=== PATIENT | male | born 1940 | race Caucasian/White ===

== ENCOUNTER 2016-12-08 18:38 | Emergency (ER) | payer MEDICARE, BC ==
--- NOTE | 2016-12-08 18:49 | ER Document Report ---
ED Medical Screen (RME) - General Stated Complaint: LOWER BACK PAIN Mode of Arrival: Medic Notes: Patient called EMS for right lower back pain for 2 days. Pain was dull in nature, but now is resolved. Patient denies any urinary symptoms. hx: CHF, hypertension, chronic kidney disease I have greeted and performed a rapid initial assessment of this patient. A comprehensive ED assessment and evaluation of the patient, analysis of test results and completion of the medical decision making process will be conducted by additional ED providers. TRAVEL OUTSIDE OF THE [place] IN LAST 30 DAYS: No - Related Data Allergies/Adverse Reactions: No Known Allergies Allergy (Unverified 09/25/12 16:20) Past Medical History - Past Medical History Cardiac Medical History: Reports: Hx Congestive Heart Failure, Hx Coronary Artery Disease, Hx Heart Attack, Hx Hypercholesterolemia, Hx Hypertension, Hx Peripheral Vascular Disease Denies: Hx Atrial Fibrillation, Hx Heart Murmur Pulmonary Medical History: Denies: Hx Tuberculosis Neurological Medical History: Denies: Hx Seizures Musculoskeltal Medical History: Reports Hx Arthritis Psychiatric Medical History: Denies: Hx Depression Past Surgical History: Reports: Hx Appendectomy, Hx Coronary Artery Bypass Graft , Hx Coronary Stent - x2 in 2009, Other - Colon polypectomy. Denies: Hx Bowel Surgery, Hx Cholecystectomy, Hx Gastric Bypass Surgery, Hx Herniorrhaphy, Hx Pacemaker, Hx Tonsillectomy - Immunizations Hx Diphtheria, Pertussis, Tetanus Vaccination: Yes Physical Exam - Vital signs Vitals: Temp Pulse Resp BP Pulse Ox 98.9 F 66 16 125/57 L 94 12/08/16 19:03 12/08/16 19:03 12/08/16 19:03 12/08/16 19:03 12/08/16 19:03 - Back Back: Normal Course - Vital Signs Vital signs: Temp Pulse Resp BP Pulse Ox 98.9 F 66 16 125/57 L 94 12/08/16 19:03 12/08/16 19:03 12/08/16 19:03 12/08/16 19:03 12/08/16 19:03
[2016-12-08 20:01] LABS: ABSOLUTE BASOPHILS # (AUTO) 0.1 10^3/uL (0.0-0.2); ABSOLUTE LYMPHOCYTES (AUTO) 1.7 10^3/uL (0.5-4.7); ABSOLUTE NEUT (AUTO) 10.2 10^3/uL (1.7-8.2); BASOPHILS % (AUTO) 0.4 % (0-2); EOSINOPHILS % (AUTO) 0.3 % (0-6); HEMATOCRIT 33.6 % (37.9-51.0); HGB HCT DIFFERENCE -0.6; MEAN CORPUSCULAR HEMOGLOBIN 29.3 pg (27.0-33.4); MEAN CORPUSCULAR HGB CONC 32.7 g/dL (32.0-36.0); MEAN CORPUSCULAR VOLUME 90 fl (80-97); RED BLOOD COUNT 3.74 10^6/uL (4.35-5.55); SEGMENTED NEUTROPHILS % (AUTO) 73.3 % (42-78); WHITE BLOOD COUNT 13.9 10^3/uL (4.0-10.5)
[2016-12-08 20:22] LABS: ALANINE AMINOTRANSFERASE 23 U/L (21-72); ALBUMIN 4.2 g/dL (3.5-5.0); ALKALINE PHOSPHATASE 74 U/L (38-126); ANION GAP 18 (5-19); ASPARTATE AMINO TRANSFERASE 18 U/L (17-59); BILIRUBIN,DIRECT 0.4 mg/dL (0.0-0.4); BILIRUBIN,TOTAL 0.6 mg/dL (0.2-1.3); BLOOD UREA NITROGEN 80 mg/dL (7-20); CALCIUM 9.7 mg/dL (8.4-10.2); CARBON DIOXIDE 21 mmol/L (22-30); CHLORIDE 103 mmol/L (98-107); CREATININE RESULT 2.66 mg/dL (0.52-1.25); GLUCOSE 122 mg/dL (75-110); LIPASE 199.9 U/L (23-300); POTASSIUM 5.1 mmol/L (3.6-5.0); SODIUM 141.9 mmol/L (137-145); TOTAL PROTEIN 7.1 g/dL (6.3-8.2)
[2016-12-08 20:35] LABS: APPEARANCE,URINE SLIGHTLY-CLOUDY; BILIRUBIN,URINE NEGATIVE (NEGATIVE); GLUCOSE, URINE NEGATIVE (NEGATIVE); KETONES,URINE NEGATIVE (NEGATIVE); LEUKOCYTE ESTERASE,URINE NEGATIVE (NEGATIVE); NITRITE,URINE NEGATIVE (NEGATIVE); PROTEIN,URINE NEGATIVE (NEGATIVE); URINE SPECIFIC GRAVITY 1.016; UROBILINOGEN,URINE NEGATIVE mg/dL (<2.0)
[2016-12-09] MEDS ORDERED: HYDROCODONE/ACETAMINOPHEN 5-325 MG 6 TAB/DSPK PO PRN (00:04)
--- NOTE | 2016-12-09 00:04 | ER Document Report ---
ED GI/ - General Mode of Arrival: Medic Information source: Patient, Relative - TRAVEL OUTSIDE OF THE [place] IN LAST 30 DAYS: No - HPI Patient complains to provider of: Other - Low back pain Associated symptoms: Other - See above <REGGIE CAO - Last Filed: 12/09/16 01:18> <CARLOS BADILLO - Last Filed: 12/09/16 02:44> - General Chief Complaint: Low Back Pain Stated Complaint: LOWER BACK PAIN Notes: Patient is a 76 year old male, with a past medical history including stage 4 kidney disease, who presents to the emergency department via EMS for right lower back pain. Patient states the pain began yesterday night and was exacerbated by laying on his right side which caused him shortness of breath. Patient reports the pain went away but came back yesterday afternoon but without any difficulty breathing. Patient states he has been using a heating pad at home to help relieve the pain. Patient was given a shot or toradol en route and states he [place] snot have pain anymore. Patient denies fever and cough. Senior Interactive Producer: Dr. Lundberg (REGGIE CAO) - Related Data Allergies/Adverse Reactions: No Known Allergies Allergy (Verified 12/08/16 19:24) Past Medical History - General Information source: Patient - Social History Smoking Status: Never Smoker Chew tobacco use (# tins/day): No Frequency of alcohol use: None Drug Abuse: None Family History: Reviewed & Not Pertinent - Past Medical History Cardiac Medical History: Reports: Hx Congestive Heart Failure, Hx Coronary Artery Disease, Hx Heart Attack, Hx Hypercholesterolemia, Hx Hypertension, Hx Peripheral Vascular Disease Renal/ Medical History: Reports: Other - Hx Stage 3 kidney disease Musculoskeltal Medical History: Reports Hx Arthritis Past Surgical History: Reports: Hx Appendectomy, Hx Coronary Artery Bypass Graft , Hx Coronary Stent - x2 in 2009, Other - Colon polypectomy - Immunizations Hx Diphtheria, Pertussis, Tetanus Vaccination: Yes <REGGIE CAO - Last Filed: 12/09/16 01:18> Review of Systems - Review of Systems Constitutional: No symptoms reported. denies: Fever EENT: No symptoms reported Cardiovascular: No symptoms reported Respiratory: See HPI, Hurts to breathe. denies: Cough Gastrointestinal: No symptoms reported Genitourinary: No symptoms reported Male Genitourinary: No symptoms reported Musculoskeletal: See HPI, Back pain Skin: No symptoms reported Hematologic/Lymphatic: No symptoms reported Neurological/Psychological: No symptoms reported -: Yes All other systems reviewed and negative <REGGIE CAO - Last Filed: 12/09/16 01:18> Physical Exam - Vital signs Interpretation: Normal - General General appearance: Appears well, Alert - HEENT Head: Normocephalic, Atraumatic Eyes: Normal Pupils: PERRL - Respiratory Respiratory status: No respiratory distress Chest status: Nontender Breath sounds: Normal Chest palpation: Normal - Cardiovascular Rhythm: Regular Heart sounds: Normal auscultation Murmur: No - Abdominal Inspection: Normal Distension: No distension Bowel sounds: Normal Tenderness: Nontender Organomegaly: No organomegaly - Back Back: Normal, Other - Burn to right flank with centimeters by 2 cm blister. No : CVA tenderness - Extremities General upper extremity: Normal inspection, Nontender, Normal color, Normal ROM , Normal temperature General lower extremity: Normal inspection, Nontender, Normal color, Normal ROM , Normal temperature, Normal weight bearing. No: Volodymyr's sign - Neurological Neuro grossly intact: Yes Cognition: Normal Orientation: AAOx4 [place] Coma Scale Eye Opening: Spontaneous [place] Coma Scale Verbal: Oriented [place] Coma Scale Motor: Obeys Commands Lexy Coma Scale Total: 15 Speech: Normal Motor strength normal: LUE, RUE, LLE, RLE Sensory: Normal - Psychological Associated symptoms: Normal affect, Normal mood - Skin Skin Temperature: Warm Skin Moisture: Dry Skin Color: Normal <CARLOS BADILLO - Last Filed: 12/09/16 02:44> - Vital signs Vitals: Temp Pulse Resp BP Pulse Ox 98.9 F 66 16 125/57 L 94 12/08/16 19:03 12/08/16 19:03 12/08/16 19:03 12/08/16 19:03 12/08/16 19:03 Course - Laboratory Result Diagrams: 12/08/16 19:49 12/08/16 19:49 <REGGIE CAO - Last Filed: 12/09/16 01:18> - Laboratory Result Diagrams: 12/08/16 19:49 12/08/16 19:49 <CARLOS BADILLO - Last Filed: 12/09/16 02:44> - Re-evaluation Re-evalutation: 12/09/16 Patient presents with back pain that resolved en route after Toradol. Patient is no evidence for UTI her kidney stone. Patient's blood work appears to be at baseline. Patient has no further pain or complaints at this time. He does however have a blister to his back after using a heating pad at home. Patient is instructed to follow-up with his primary doctor in the morning. Return if any worsening or concerning symptoms. Understands agrees with plan. Stable for discharge. Patient states that he does not want to do x-rays as he had recent imaging of his back. (CARLOS BADILLO) - Vital Signs Vital signs: Temp Pulse Resp BP Pulse Ox 97.7 F 60 20 151/53 H 94 12/09/16 00:23 12/09/16 00:23 12/09/16 00:23 12/09/16 00:23 12/09/16 00:23 - Laboratory Laboratory results interpreted by me: 12/08/16 12/08/16 19:49 19:49 WBC 13.9 H RBC 3.74 L Hgb 11.0 L Hct 33.6 L RDW 15.0 H Lymphocytes % 12.0 L Monocytes % 14.0 H Absolute Neutrophils 10.2 H Absolute Monocytes 2.0 H Potassium 5.1 H Carbon Dioxide 21 L BUN 80 H Creatinine 2.66 H Est GFR ( Amer) 28 L Est GFR (Non-Af Amer) 23 L Glucose 122 H Discharge <REGGIE CAO - Last Filed: 12/09/16 01:18> <CARLOS BADILLO - Last Filed: 12/09/16 02:44> - Discharge Clinical Impression: Burn Chronic kidney disease Qualifiers: Chronic kidney disease stage: stage 4 (severe) Qualified Code(s): N18.4 - Chronic kidney disease, stage 4 (severe) Back pain Qualifiers: Back pain location: low back pain Chronicity: acute Back pain laterality: right Sciatica presence: without sciatica Qualified Code(s): M54.5 - Low back pain Condition: Stable Disposition: HOME, SELF-CARE Instructions: [place] ([facility]), Low Back Pain ([facility]), Muscle Strain ([facility]) Additional Instructions: Please follow-up with your primary doctor tomorrow. Please return if you have any worsening or concerning symptoms. 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 Prescriptions: Oxycodone HCl/Acetaminophen [Percocet 5-325 mg Tablet] 1 tab PO BIDP PRN #15 tablet PRN Reason: Scribe Attestation: 12/09/16 02:44 I personally performed the services described in the documentation, reviewed and edited the documentation which was dictated to the scribe in my presence, and it accurately records my words and actions. (CARLOS BADILLO) Scribe Documentation - Scribe Written by Vera:: vera David, 12/09/16, 0124 acting as scribe for :: Chavez <REGGIE CAO - Last Filed: 12/09/16 01:18>
[2016-12-09 00:36] VITALS: BP 151/53
== END 2016-12-09 00:25 | disposition home or self-care (01) ==
LOC: ER 18:38
DX: M54.5 Low back pain (principal); T21.24XA Burn of second degree of lower back, initial encounter; X19.XXXA Contact with other heat and hot substances, initial encounter; I12.9 Hypertensive chronic kidney disease with stage 1 through stage 4 chronic kidney disease, or unspecified chronic kidney disease; N18.4 Chronic kidney disease, stage 4 (severe); R07.1 Chest pain on breathing; I25.10 Atherosclerotic heart disease of native coronary artery without angina pectoris; I25.2 Old myocardial infarction; Z95.1 Presence of aortocoronary bypass graft; Z98.61 Coronary angioplasty status
CPT/HCPCS: 99283; 36415; 83690; 85025; 80053; 81001; A9270

== ENCOUNTER 2020-03-12 23:04 | Inpatient (IN) | payer MEDICARE, BC ==
--- NOTE | 2020-03-12 23:50 | ER Document Report ---
ED Fall - General Chief Complaint: Knee Pain Stated Complaint: FALL KNEE PAIN Time Seen by Provider: 03/12/20 23:35 Primary Care Provider: [facility] [Provider Group] - Follow up in 3-5 days ERNESTINE BRANDT FNP-C [Primary Care Provider] - Follow up as needed Mode of Arrival: Stretcher Information source: Patient Notes: 80-year-old male presented to ED for complaint of bilateral knee pain. He states he tried to get up the stairs and fell down 2 steps attempted to go up the second time and fell down again. He states that he can go back up the steps the third time. He is alert oriented respirations regular nonlabored speaking in full sentences. He does have some bruising and mild swelling to both knees. He does have pedal edema bilaterally but he is in CHF. He is alert oriented respirations regular nonlabored speaking in full sentences. TRAVEL OUTSIDE OF THE [place] IN LAST 30 DAYS: No - HPI Occurred: This evening Where: Home Context: Tripped Associated symptoms: Difficulty walking Location of injury/pain: Knee Quality of pain: Dull Severity: Moderate Pain Level: 3 - Related data Allergies/Adverse Reactions: No Known Allergies Allergy (Verified 12/08/16 19:24) Past Medical History - General Information source: Patient - Social History Smoking Status: Never Smoker Frequency of alcohol use: None Drug Abuse: None Family History: Reviewed & Not Pertinent - Past Medical History Cardiac Medical History: Reports: Hx Congestive Heart Failure, Hx Coronary Artery Disease, Hx Heart Attack, Hx Hypercholesterolemia, Hx Hypertension, Hx Peripheral Vascular Disease Pulmonary Medical History: Reports: None EENT Medical History: Reports: None Neurological Medical History: Reports: None Endocrine Medical History: Reports: None Renal/ Medical History: Reports: Hx End Stage Renal Disease - Stage III kidney disease Malignancy Medical History: Reports None GI Medical History: Reports: Hx Colonoscopy Musculoskeletal Medical History: Reports Hx Arthritis Skin Medical History: Reports None Psychiatric Medical History: Reports: None Traumatic Medical History: Reports: None Infectious Medical History: Reports: None Past Surgical History: Reports: Hx Appendectomy, Hx Coronary Artery Bypass Graft, Hx Coronary Stent - x2 in 2009, Other - Colon polypectomy - Immunizations Hx Diphtheria, Pertussis, Tetanus Vaccination: Yes Review of Systems - Review of Systems Constitutional: No symptoms reported EENT: No symptoms reported Cardiovascular: No symptoms reported Respiratory: No symptoms reported Gastrointestinal: No symptoms reported Genitourinary: No symptoms reported Male Genitourinary: No symptoms reported Musculoskeletal: Joint pain - Bilateral knee pain and swelling, Joint swelling Skin: No symptoms reported Hematologic/Lymphatic: No symptoms reported Neurological/Psychological: No symptoms reported Physical Exam - Vital signs Vitals: Temp Pulse Resp BP Pulse Ox 98.8 F 94 19 137/70 H 92 03/12/20 23:12 03/12/20 23:12 03/12/20 23:12 03/12/20 23:12 03/12/20 23:12 Interpretation: Normal - General General appearance: Appears well, Alert - HEENT Head: Normocephalic, Atraumatic Eyes: Normal Pupils: PERRL - Respiratory Respiratory status: No respiratory distress Chest status: Nontender Breath sounds: Normal Chest palpation: Normal - Cardiovascular Rhythm: Regular Heart sounds: Normal auscultation Murmur: No - Abdominal Inspection: Normal Distension: No distension Bowel sounds: Normal Tenderness: Nontender Organomegaly: No organomegaly - Back Back: Normal, Nontender - Extremities General upper extremity: Normal inspection, Nontender, Normal color, Normal ROM, Normal temperature General lower extremity: Normal ROM, Normal temperature. No: Volodymyr's sign Knee: Tender, Ecchymosis, Joint effusion, Pain with ROM, Patellar tendon intact, Tender joint line. No: Abrasion, Deformity, Dislocation, Drawer's test instability, Instability, Laceration, Laxity with valgus stress, Laxity with varus stress, Popliteal fossa tender Calf: Normal, Nontender Ankle: Edema Foot: Edema - Neurological Neuro grossly intact: Yes Cognition: Normal Orientation: AAOx4 [place] Coma Scale Eye Opening: Spontaneous [place] Coma Scale Verbal: Oriented [place] Coma Scale Motor: Obeys Commands Lexy Coma Scale Total: 15 Speech: Normal Motor strength normal: LUE, RUE, LLE, RLE Sensory: Normal - Psychological Associated symptoms: Normal affect, Normal mood - Skin Skin Temperature: Warm Skin Moisture: Dry Skin Color: Normal Course - Re-evaluation Re-evalutation: 03/13/20 05:21 Discussed x-rays with patient and written report of x-rays given the patient. A prescription have been applied to both knees as patient is not able to walk and uses a motorized scooter would not be able to utilize knee immobilizer. He has been instructed to follow-up with orthopedics when he is discharged home. He states he will not be able to go home until he gets a ride with family. That has been scheduled for in the morning. - Vital Signs Vital signs: Temp Pulse Resp BP Pulse Ox 98.0 F 71 18 138/78 H 91 L 03/13/20 02:06 03/13/20 02:06 03/13/20 02:06 03/13/20 02:06 03/13/20 02:06 - Diagnostic Test Radiology reviewed: Image reviewed, Reports reviewed Procedures - Immobilization Left Knee Time completed: :45 Pre-Proc Neuro Vasc Exam: Normal Immobilizer type: Krishna wrap Performed by: PCT Post-Proc Neuro Vasc Exam: Normal Alignment checked and good: Yes Right Knee Time completed: 45 Pre-Proc Neuro Vasc Exam: Normal Immobilizer type: Krishna wrap Performed by: PCT Post-Proc Neuro Vasc Exam: Normal Alignment checked and good: Yes Discharge - Discharge Clinical Impression: Bilateral knee contusion Fall Qualifiers: Encounter type: initial encounter Qualified Code(s): W19.XXXA - Unspecified fall, initial encounter Degenerative arthritis of knee, bilateral Qualifiers: Osteoarthritis type: unspecified Qualified Code(s): M17.0 - Bilateral primary osteoarthritis of knee Condition: Stable Disposition: HOME, SELF-CARE Additional Instructions: CONTUSION: Your injury has resulted in a contusion -- a crushing of the deep tissues. No injury to important structures was detected during the physician's exam. Contusions vary in the amount of pain they cause, and in the length of time required for healing. Typically, the area will become bruised, and will remain painful to touch for two or three weeks. However, most patients are back to working and playing within a few days. After the initial period of rest and cold-packs, your symptoms (together with the doctor's recommendations) will determine how rapidly you can get back to full activity. Usually this means "do what feels okay, but don't do things that hurt." If re-examination was recommended, it's important to follow up as instructed. Call the doctor or return any time if pain increases, if swelling becomes severe, if you develop numbness or weakness in an injured extremity, or if any other alarming symptoms occur. KRISHNA WRAP: A compression dressing (krishna wrap) has been placed. This helps hold the area still. It limits swelling and internal bleeding. The wrap should be comfortably snug -- not tight. You should feel a sense of pressure, but not severe pain under the wrap. Unless the physician tells you otherwise, you can adjust the wrap for comfort. If the wrap causes symptoms suggesting it's too tight -- uncomfortable pressure, swelling or discoloration beyond the wrap, numbness, or severe pain -- you must loosen the wrap. If these symptoms don't resolve promptly, return for re-evaluation. ICE & ELEVATION: Apply ice packs frequently against the painful area. Many different schedules are recommended, such as "20 minutes on, 20 minutes off" or "one hour ice, two hours rest." If you need to work, you may need to go longer between ice treatments. You should plan to have the area ice packed AT LEAST one-fourth of the time. The ice should be applied over the wrap, tape, or splint, or over a layer of cloth -- not directly against the skin. Some ice bags have a built-in cloth and can be put directly on the skin. Your injured part should be elevated as much as possible over the next 48 hours. Try to keep the injury above the level of the heart. Avoid use of the injured area. Elevation and rest will decrease the swelling. USE OF TYLENOL (ACETAMINOPHEN): Acetaminophen may be taken for pain relief or fever control. It's much safer than aspirin, offering a wider range of "safe" dosages. It is safe during . Some brand names are Tylenol, Panadol, Datril, Anacin 3, Tempra, and Liquiprin. Acetaminophen can be repeated every four hours. The following are maximum recommended dosages: WEIGHT Dose Drops Elixir Chewable(80mg) (LBS.) drprs=droppers tsp=teaspoon 6 40 mg 0.4 ml (1/2) 6-11 80 mg 0.8 ml (full) tsp 1 tab 12-16 120 mg 1 1/2 drprs 3/4 tsp 1 1/2 tabs 17-23 160 mg 2 drprs 1 tsp 2 tabs 24-30 240 mg 3 drprs 1 1/2 tsp 3 tabs 30-35 320 mg 2 tsp 4 tabs 36-41 360 mg 2 1/4 tsp 4 1/2 tabs 42-47 400 mg 2 1/2 tsp 5 tabs 48-53 480 mg 3 tsp 6 tabs 54-59 520 mg 3 1/4 tsp 6 1/2 tabs 60-64 560 mg 3 1/2 tsp 7 tabs 65-70 600 mg 3 3/4 tsp 7 1/2 tabs 71-76 640 mg 4 tsp 8 tabs 77-82 720 mg 4 1/2 tsp 9 tabs 83-88 800 mg 5 tsp 10 tabs >89 pounds or adults 650 mg to 900 mg Acetaminophen can be repeated every four hours. Maximum dose not to exceed 4000 mg a day. These maximum recommended dosages are slightly higher than the dosages written on the product container, but these dosages are very safe and below the toxic dosage for acetaminophen. FOLLOW-UP CARE: If you have been referred to a physician for follow-up care, call the physicians office for an appointment as you were instructed or within the next two days. If you experience worsening or a significant change in your symptoms, notify the physician immediately or return to the Emergency Department at any time for re-evaluation. Forms: Elevated Blood Pressure Referrals: ERNESTINE BRANDT, RN [facility] [Primary Care Provider] - Follow up as needed [facility] [Provider Group] - Follow up in 3-5 days
[2020-03-13] MEDS ORDERED: ACETAMINOPHEN 325 MG TABLET PO ONE (00:35)
--- NOTE | 2020-03-13 00:37 | RADIOLOGY REPORT (SQ) ---
EXAM DESCRIPTION: XR KNEE 4 OR MORE VIEWS COMPLETED DATE/TME: 03/12/2020 23:44 CLINICAL HISTORY: 80 years, Male, Fall pain and injury both knees COMPARISON: None. NUMBER OF VIEWS: 4 TECHNIQUE: 4 views of the left knee LIMITATIONS: None. FINDINGS: Osteopenia. Negative for acute fracture or dislocation. However, there is advanced tricompartmental degenerative change with multiple loose bodies. Small joint effusion is suspected. Vascular calcifications IMPRESSION: Osteopenia with advanced degenerative change. Small loose bodies. copyright 2010 [employer]- All Rights Reserved
--- NOTE | 2020-03-13 00:53 | RADIOLOGY REPORT (SQ) ---
EXAM DESCRIPTION: XR KNEE 4 OR MORE VIEWS COMPLETED DATE/TME: 03/12/2020 23:44 CLINICAL HISTORY: 80 years, Male, Fall pain and injury both knees COMPARISON: None. NUMBER OF VIEWS: 4 TECHNIQUE: 4 views of the right knee LIMITATIONS: None. FINDINGS: Osteopenia. Negative for acute fracture or dislocation. Probable small joint effusion. Vascular calcifications. Advanced tricompartmental degenerative change with tricompartmental narrowing, and spur formation. IMPRESSION: Osteopenia with advanced degenerative change copyright 2010 [employer]- All Rights Reserved
--- NOTE | 2020-03-13 07:56 | ER Document Report ---
ED Medical Screen (RME) - General Chief Complaint: Knee Pain Stated Complaint: FALL KNEE PAIN Time Seen by Provider: 03/12/20 23:35 Primary Care Provider: [facility] [Provider Group] - Follow up in 3-5 days ERNESTINE BRANDT FNP-C [Primary Care Provider] - Follow up as needed Mode of Arrival: Stretcher Information source: Patient Notes: 80-year-old male was waiting for a ride home from his previous admission for fall with contusions to bilateral knees. When he woke up this morning he was extremely short of breath. O2 sat was in the 80s. He had been sleeping waiting for his ride home with family. His sats are 91% on 2 L of oxygen. He states he does get this way sometimes at home and he just rest and wait for it to pass. He does have a history of CHF and coronary artery disease. We will get a cardiac work-up done at this time he is on 2 L nasal cannula and he will be reexamined and a new work-up started. I have greeted and performed a rapid initial assessment of this patient. A comprehensive ED assessment and evaluation of the patient, analysis of test results and completion of medical decision making process will be conducted by an additional ED providers. TRAVEL OUTSIDE OF THE [place] IN LAST 30 DAYS: No - Related Data Allergies/Adverse Reactions: No Known Allergies Allergy (Verified 12/08/16 19:24) Past Medical History - Social History Chew tobacco use (# tins/day): No Frequency of alcohol use: None Drug Abuse: None - Past Medical History Cardiac Medical History: Reports: Hx Congestive Heart Failure, Hx Coronary Artery Disease, Hx Heart Attack, Hx Hypercholesterolemia, Hx Hypertension, Hx Peripheral Vascular Disease Pulmonary Medical History: Reports: None EENT Medical History: Reports: None Neurological Medical History: Reports: None Endocrine Medical History: Reports: None Renal/ Medical History: Reports: Hx End Stage Renal Disease - Stage III kidney disease Malignancy Medical History: Reports None GI Medical History: Reports: Hx Colonoscopy Musculoskeltal Medical History: Reports Hx Arthritis Skin Medical History: Reports None Psychiatric Medical History: Reports: None Traumatic Medical History: Reports: None Infectious Medical History: Reports: None Past Surgical History: Reports: Hx Appendectomy, Hx Cardiac Surgery - 2 stents, Hx Coronary Artery Bypass Graft, Hx Coronary Stent - x2 in 2009, Other - Colon polypectomy - Immunizations Hx Diphtheria, Pertussis, Tetanus Vaccination: Yes Physical Exam - Vital signs Vitals: Temp Pulse Resp BP Pulse Ox 98.8 F 94 19 137/70 H 92 03/12/20 23:12 03/12/20 23:12 03/12/20 23:12 03/12/20 23:12 03/12/20 23:12 Course - Vital Signs Vital signs: Temp Pulse Resp BP Pulse Ox 98.0 F 71 18 138/78 H 91 L 03/13/20 02:06 03/13/20 02:06 03/13/20 02:06 03/13/20 02:06 03/13/20 02:06 Doctor's Discharge - Discharge Clinical Impression: Bilateral knee contusion Fall Qualifiers: Encounter type: initial encounter Qualified Code(s): W19.XXXA - Unspecified fall, initial encounter Degenerative arthritis of knee, bilateral Qualifiers: Osteoarthritis type: unspecified Qualified Code(s): M17.0 - Bilateral primary osteoarthritis of knee Condition: Stable Disposition: HOME, SELF-CARE Additional Instructions: CONTUSION: Your injury has resulted in a contusion -- a crushing of the deep tissues. No injury to important structures was detected during the physician's exam. Contusions vary in the amount of pain they cause, and in the length of time required for healing. Typically, the area will become bruised, and will remain painful to touch for two or three weeks. However, most patients are back to working and playing within a few days. After the initial period of rest and cold-packs, your symptoms (together with the doctor's recommendations) will determine how rapidly you can get back to full activity. Usually this means "do what feels okay, but don't do things that hurt." If re-examination was recommended, it's important to follow up as instructed. Call the doctor or return any time if pain increases, if swelling becomes severe, if you develop numbness or weakness in an injured extremity, or if any other alarming symptoms occur. CEDRIC WRAP: A compression dressing (cedric wrap) has been placed. This helps hold the area still. It limits swelling and internal bleeding. The wrap should be comfortably snug -- not tight. You should feel a sense of pressure, but not severe pain under the wrap. Unless the physician tells you otherwise, you can adjust the wrap for comfort. If the wrap causes symptoms suggesting it's too tight -- uncomfortable pressure, swelling or discoloration beyond the wrap, numbness, or severe pain -- you must loosen the wrap. If these symptoms don't resolve promptly, return for re-evaluation. ICE & ELEVATION: Apply ice packs frequently against the painful area. Many different schedules are recommended, such as "20 minutes on, 20 minutes off" or "one hour ice, two hours rest." If you need to work, you may need to go longer between ice treatments. You should plan to have the area ice packed AT LEAST one-fourth of the time. The ice should be applied over the wrap, tape, or splint, or over a layer of cloth -- not directly against the skin. Some ice bags have a built-in cloth and can be put directly on the skin. Your injured part should be elevated as much as possible over the next 48 hours. Try to keep the injury above the level of the heart. Avoid use of the injured area. Elevation and rest will decrease the swelling. USE OF TYLENOL (ACETAMINOPHEN): Acetaminophen may be taken for pain relief or fever control. It's much safer than aspirin, offering a wider range of "safe" dosages. It is safe during . Some brand names are Tylenol, Panadol, Datril, Anacin 3, Tempra, and Liquiprin. Acetaminophen can be repeated every four hours. The following are maximum recommended dosages: WEIGHT Dose Drops Elixir Chewable(80mg) (LBS.) drprs=droppers tsp=teaspoon 6 40 mg 0.4 ml (1/2) 6-11 80 mg 0.8 ml (full) tsp 1 tab 12-16 120 mg 1 1/2 drprs 3/4 tsp 1 1/2 tabs 17-23 160 mg 2 drprs 1 tsp 2 tabs 24-30 240 mg 3 drprs 1 1/2 tsp 3 tabs 30-35 320 mg 2 tsp 4 tabs 36-41 360 mg 2 1/4 tsp 4 1/2 tabs 42-47 400 mg 2 1/2 tsp 5 tabs 48-53 480 mg 3 tsp 6 tabs 54-59 520 mg 3 1/4 tsp 6 1/2 tabs 60-64 560 mg 3 1/2 tsp 7 tabs 65-70 600 mg 3 3/4 tsp 7 1/2 tabs 71-76 640 mg 4 tsp 8 tabs 77-82 720 mg 4 1/2 tsp 9 tabs 83-88 800 mg 5 tsp 10 tabs >89 pounds or adults 650 mg to 900 mg Acetaminophen can be repeated every four hours. Maximum dose not to exceed 4000 mg a day. These maximum recommended dosages are slightly higher than the dosages written on the product container, but these dosages are very safe and below the toxic dosage for acetaminophen. FOLLOW-UP CARE: If you have been referred to a physician for follow-up care, call the physicians office for an appointment as you were instructed or within the next two days. If you experience worsening or a significant change in your symptoms, notify the physician immediately or return to the Emergency Department at any time for re-evaluation. Forms: Elevated Blood Pressure Referrals: [facility] [Provider Group] - Follow up in 3-5 days ERNESTINE BRANDT FNP-C [Primary Care Provider] - Follow up as needed
[2020-03-13] MEDS ORDERED: FUROSEMIDE INJ/PF 20 MG/2 ML SDV IV ONE (08:42)
[2020-03-13] MEDS ORDERED: NITROGLYCERIN 2% OINTMENT 1 GM PACKET TP ONE (08:42)
--- NOTE | 2020-03-13 08:44 | RADIOLOGY REPORT (SQ) ---
EXAM DESCRIPTION: CHEST SINGLE VIEW IMAGES COMPLETED DATE/TIME: 03/13/2020 8:20 am REASON FOR STUDY: Shortness of breath history of CHF COMPARISON: None. NUMBER OF VIEWS: One view. TECHNIQUE: Single frontal radiographic view of the chest acquired. LIMITATIONS: None. FINDINGS: LUNGS AND PLEURA: Increased mixed interstitial and airspace opacities are seen of the lung bases. No pneumothorax. No pleural effusion. MEDIASTINUM AND HILAR STRUCTURES: No masses or contour abnormality. HEART AND VASCULATURE: Cardiac enlargement. Vascular congestion. BONES: No acute findings. HARDWARE: None in the chest. OTHER: No other significant finding. IMPRESSION: Constellation of findings suggests CHF exacerbation. Infectious etiology is not exclude d. TECHNICAL DOCUMENTATION: JOB ID: [id number] 2010 [employer]- All Rights Reserved Reading location - IP/workstation name: [email or web address]
[2020-03-13 08:51] LABS: ABSOLUTE EOSINOPHILS # (AUTO) 0.1 10^3/uL (0.0-0.6); ABSOLUTE LYMPHOCYTES (AUTO) 1.5 10^3/uL (0.5-4.7); ABSOLUTE MONOCYTES (AUTO) 1.1 10^3/uL (0.1-1.4); BASOPHILS % (AUTO) 0.4 % (0-2); EOSINOPHILS % (AUTO) 1.1 % (0-6); HEMATOCRIT 33.8 % (37.9-51.0); HEMOGLOBIN 10.8 g/dL (13.5-17.0); LYMPHOCYTES % (AUTO) 11.6 % (13-45); MEAN CORPUSCULAR HEMOGLOBIN 29.1 pg (27.0-33.4); MEAN CORPUSCULAR VOLUME 91 fl (80-97); PLATELET COUNT 282 10^3/uL (150-450); RED BLOOD COUNT 3.73 10^6/uL (4.35-5.55); RED CELL DISTRIBUTION WIDTH 14.7 % (11.5-14.0); SEGMENTED NEUTROPHILS % (AUTO) 77.9 % (42-78); TOTAL CELLS COUNTED % (AUTO) 100 %; WHITE BLOOD COUNT 12.8 10^3/uL (4.0-10.5)
[2020-03-13 09:12] LABS: ALKALINE PHOSPHATASE 84 U/L (38-126); ANION GAP 8 (5-19); ASPARTATE AMINO TRANSFERASE 22 U/L (17-59); BILIRUBIN,DIRECT 0.1 mg/dL (0.0-0.4); BILIRUBIN,TOTAL 0.6 mg/dL (0.2-1.3); BLOOD UREA NITROGEN 65 mg/dL (7-20); CALCIUM 10.1 mg/dL (8.4-10.2); CARBON DIOXIDE 26 mmol/L (22-30); CHLORIDE 107 mmol/L (98-107); GLUCOSE 129 mg/dL (75-110); POTASSIUM 5.7 mmol/L (3.6-5.0); TOTAL PROTEIN 7.1 g/dL (6.3-8.2)
--- NOTE | 2020-03-13 09:17 | ER Document Report ---
ED Respiratory Problem - General Chief Complaint: Knee Pain Stated Complaint: FALL KNEE PAIN Time Seen by Provider: 03/13/20 09:00 Mode of Arrival: Stretcher Notes: Patient had initially been seen for complaint of knee pain. Patient was having difficulty breathing prior to his discharge and the discharge was canceled. Patient states that he has been having a productive cough for the past several weeks with shortness of breath today. Patient states that he had shortness of breath at home that led up to his fall. Patient's oxygen saturation on room air was in the 80s and the patient was noted to be in atrial fibrillation. Patient denies any history of A. fib. Patient with a rate in the 100s. Patient tachy pneic with increased work of breathing at this time. Dr. Rosas had been called into the room and had ordered Lasix and nitroglycerin paste. Patient does report a history of CHF and does report some increased swelling and weight gain recently. Patient denies any fever. TRAVEL OUTSIDE OF THE [place] IN LAST 30 DAYS: No - HPI Patient complains to provider of: CHF, Cough, Short of breath. No: Chest pain Onset: This morning Duration: Worse/persistent Pain Level: 3 Context: Hx CHF. denies: Smoker Associated symptoms: Cough, Difficulty breathing, Short of breath. denies: Fever, Headache, Wheezing Similar symptoms previously: No Recently seen / treated by doctor: Yes - Related Data Allergies/Adverse Reactions: Sulfa (Sulfonamide Antibiotics) Allergy (Verified 03/13/20 10:42) Past Medical History - General Information source: Patient - Social History Smoking Status: Never Smoker Chew tobacco use (# tins/day): No Frequency of alcohol use: None Drug Abuse: None Occupation: none Family History: Reviewed & Not Pertinent - Past Medical History Cardiac Medical History: Reports: Hx Congestive Heart Failure, Hx Coronary Artery Disease, Hx Heart Attack, Hx Hypercholesterolemia, Hx Hypertension, Hx Peripheral Vascular Disease Pulmonary Medical History: Reports: None EENT Medical History: Reports: None Neurological Medical History: Reports: None Endocrine Medical History: Reports: None Renal/ Medical History: Reports: Hx End Stage Renal Disease - Stage III kidney disease Malignancy Medical History: Reports None GI Medical History: Reports: Hx Colonoscopy Musculoskeletal Medical History: Reports Hx Arthritis Skin Medical History: Reports None Psychiatric Medical History: Reports: None Traumatic Medical History: Reports: None Infectious Medical History: Reports: None Past Surgical History: Reports: Hx Appendectomy, Hx Cardiac Surgery - 2 stents, Hx Coronary Artery Bypass Graft, Hx Coronary Stent - x2 in 2010, Other - Colon polypectomy - Immunizations Hx Diphtheria, Pertussis, Tetanus Vaccination: Yes Review of Systems - Review of Systems Constitutional: No symptoms reported. denies: Fever, Recent illness EENT: No symptoms reported Cardiovascular: Dyspnea. denies: Chest pain Respiratory: Cough, Short of breath Gastrointestinal: No symptoms reported. denies: Abdominal pain, Vomiting Genitourinary: No symptoms reported Male Genitourinary: No symptoms reported Musculoskeletal: Joint pain - Knee pain Skin: No symptoms reported Hematologic/Lymphatic: No symptoms reported Neurological/Psychological: No symptoms reported Physical Exam - Vital signs Vitals: Temp Pulse Resp BP Pulse Ox 98.8 F 94 19 137/70 H 92 03/12/20 23:12 03/12/20 23:12 03/12/20 23:12 03/12/20 23:12 03/12/20 23:12 - General General appearance: Alert In distress: Moderate - HEENT Head: Normocephalic Eyes: Normal Conjunctiva: Normal Nasal: Normal Mouth/Lips: Normal Mucous membranes: Normal Neck: Normal, Supple - Respiratory Respiratory status: Labored, Tachypnea Chest status: Nontender Breath sounds: Nonproductive cough, Other - Diminished breath sounds, faint rales noted to bilateral bases Chest palpation: Normal - Cardiovascular Rhythm: Irregularly irregular Heart sounds: S2 appreciated - Abdominal Inspection: Morbidly Obese Distension: No distension Tenderness: Nontender - Back Back: Normal, Nontender - Extremities General upper extremity: Normal inspection, Normal strength General lower extremity: Tender - Knee tenderness - Neurological Neuro grossly intact: Yes Cognition: Normal Lexy Coma Scale Eye Opening: Spontaneous [place] Coma Scale Verbal: Oriented Lexy Coma Scale Motor: Obeys Commands Lexy Coma Scale Total: 15 - Psychological Associated symptoms: Normal affect, Normal mood - Skin Skin Temperature: Warm Skin Moisture: Dry Skin Color: Normal Course - Re-evaluation Re-evalutation: 03/13/20 09:40 Patient with decrease in respiratory effort and rate after initiation of BiPAP, sats 99% at this time heart rate in the 90s. Patient with elevated troponin of 0.075, patient continues without any chest pain or acute ischemic changes on EKG, suspect strain response due to CHF exacerbation at this time. 03/13/20 10:[address] Call placed to hospitalist Dr[address] Dasilva who agrees to evaluate patient for admission. - Vital Signs Vital signs: Temp Pulse Resp BP Pulse Ox 98.6 F 124 H 16 131/78 H 93 03/13/20 16:36 03/13/20 16:36 03/13/20 16:36 03/13/20 16:36 03/13/20 16:36 - Laboratory Result Diagrams: 03/13/20 08:39 03/13/20 08:39 Laboratory results interpreted by me: 03/13/20 03/13/20 03/13/20 08:39 08:39 08:39 WBC 12.8 H RBC 3.73 L Hgb 10.8 L Hct 33.8 L RDW 14.7 H Lymph % (Auto) 11.6 L Absolute Neuts (auto) 10.0 H Carbonic Acid ABG pH ABG pCO2 ABG pO2 ABG HCO3 ABG Total CO2 ABG O2 Saturation Potassium 5.7 H BUN 65 H Creatinine 2.87 H Est GFR ( Amer) 26 L Est GFR (MDRD) Non-Af 21 L Glucose 129 H POC Glucose NT-Pro-B Natriuret Pep 7080 H 03/13/20 03/13/20 09:12 11:13 WBC RBC Hgb Hct RDW Lymph % (Auto) Absolute Neuts (auto) Carbonic Acid 1.66 H ABG pH 7.29 L ABG pCO2 55.1 H ABG pO2 71.8 L ABG HCO3 26.0 H ABG Total CO2 27.7 H ABG O2 Saturation 92.5 L Potassium BUN Creatinine Est GFR ( Amer) Est GFR (MDRD) Non-Af Glucose POC Glucose 117 H NT-Pro-B Natriuret Pep - Diagnostic Test Radiology reviewed: Image reviewed, Reports reviewed Discharge - Discharge Clinical Impression: Bilateral knee contusion, Hyperkalemia Fall Qualifiers: Encounter type: initial encounter Qualified Code(s): W19.XXXA - Unspecified fall, initial encounter Degenerative arthritis of knee, bilateral Qualifiers: Osteoarthritis type: unspecified Qualified Code(s): M17.0 - Bilateral primary osteoarthritis of knee CHF (congestive heart failure) Qualifiers: Heart failure type: unspecified Heart failure chronicity: unspecified Qualified Code(s): I50.9 - Heart failure, unspecified Dyspnea Qualifiers: Dyspnea type: unspecified Qualified Code(s): R06.00 - Dyspnea, unspecified Atrial fibrillation Qualifiers: Atrial fibrillation type: unspecified Qualified Code(s): I48.91 - Unspecified atrial fibrillation Condition: Fair Disposition: ADMITTED INPATIENT Admitting Provider: Vidya (Hospitalist) Unit Admitted: [facility]
[2020-03-13 09:26] LABS: TROPONIN I 0.075 ng/mL
[2020-03-13 09:31] LABS: ARTERIAL BLOOD BASE EXCESS -1.1 mmol/L; ARTERIAL BLOOD H2CO3 1.66 mmol/L (1.05-1.35); ARTERIAL BLOOD O2 SATURATION 92.5 % (94-98); ARTERIAL BLOOD PCO2 55.1 mmHg (35-45); ARTERIAL BLOOD PH 7.29 (7.35-7.45); ARTERIAL BLOOD PO2 71.8 mmHg (80-100); ARTERIAL BLOOD TOTAL CO2 27.7 mmol/L (23-27)
[2020-03-13 09:33] LABS: INTERNATIONAL RATION (INR) 1.03; PROTHROMBIN TIME 13.5 SEC (11.4-15.4)
[2020-03-13 09:33] LABS: ARTERIAL BLOOD FIO2 4L
[2020-03-13 09:34] LABS: PARTIAL THROMBOPLASTIN TIME 33.2 SEC (23.5-35.8)
[2020-03-13] MEDS ORDERED: HYDRALAZINE HCL 25 MG TABLET PO ONE (10:07)
[2020-03-13] MEDS ORDERED: LISINOPRIL 10 MG TABLET PO ONE (10:07)
[2020-03-13] MEDS ORDERED: CALCIUM GLUCONATE 1000 MG/10 ML INJ IV ONE (10:42)
[2020-03-13] MEDS ORDERED: DEXTROSE 50%-WATER 25 GM/50 ML DISP.SYRIN IV ONE (10:43)
[2020-03-13] MEDS ORDERED: INSULIN REG, HUMAN 100 UNIT/ML 3 ML VIAL (PYX) IV ONE (10:43)
[2020-03-13] MEDS ORDERED: SODIUM BICARBONATE 8.4% INJ 50 MEQ/50 ML DISP.SYRIN IV ONE (10:44)
[2020-03-13] MEDS ORDERED: CARVEDILOL 12.5 MG TABLET PO ONE ×2 (11:56→16:00)
[2020-03-13] MEDS: HEPARIN SOD (PORCINE) 5,000 UNIT/ML 1 ML VIAL SUBCUT SCH ×2 (14:49→21:29)
[2020-03-13] MEDS: TRAMADOL HCL 50 MG TABLET PO PRN ×2 (16:46→23:07)
--- NOTE | 2020-03-13 18:19 | PDOC H&P ---
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 He says he normally gets around in a scooter inside the house on the bottom floor, and when he has to go up some short stairs he uses an office chair with wheels to get around upstairs. It is not clear if he was coming up the stairs or going down the stairs, but at some point he fell and landed on both of his knees. This is the reason he was brought in. Multiple plain films show a lot of arthritis but no acute fractures. While he was here he started complaining of shortness of breath and was hypoxemic. His blood pressure was also high because he is not taking any of his medications this morning. He does not know who his data analyst is. He does not know if he has a history of congestive heart failure but he does take torsemide at home, which he says is because he gets swelling in his legs intermittently. He has been able to lay down flat at home. He is not been having any fevers. No cough. He mostly gets short of breath with exertion but he is obviously very deconditioned and this complicates his clinical picture. He had to get put on BiPAP for a little while in the ER and this improved his breathing. He does not wear oxygen at home. He appeared to have some bilateral edema on chest x-ray. Past Medical History Cardiac Medical History: Reports: Congestive Heart Failure, Coronary Artery Disease, Myocardial Infarction, Hyperlipidema, Hypertension, Peripheral Vascular Disease Pulmonary Medical History: Reports: None EENT Medical History: Reports: None Neurological Medical History: Reports: None Endocrine Medical History: Reports: None Renal/ Medical History: Reports: End Stage Renal Disease - Stage III kidney disease Malignancy Medical History: Reports: None Musculoskeltal Medical History: Reports: Arthritis Skin Medical History: Reports: None Psychiatric Medical History: Reports: None Traumatic Medical History: Reports: None Infectious Medical History: Reports: None Past Surgical History Past Surgical History: Reports: Appendectomy, Coronary Artery Bypass Graft, Coronary Stent - x2 in 2009, Other - Colon polypectomy Social History Smoking Status: Never Smoker Electronic Cigarette use?: No Frequency of Alcohol Use: None Hx Recreational Drug Use: No Drugs: None Hx Prescription Drug Abuse: No Family History Family History: Reviewed & Not Pertinent Parental Family History Reviewed: No - He does not know Children Family History Reviewed: Unknown Sibling(s) Family History Reviewed.: Unknown Medication/Allergy Home Medications: Clopidogrel Bisulfate [Plavix 75 mg Tablet] 75 mg PO DAILY 09/25/12 Lisinopril [Prinivil 20 mg Tablet] 20 mg PO DAILY 09/25/12 Carvedilol [Coreg 12.5 mg Tablet] 25 mg PO Q12 #0 tablet 10/05/12 Hydralazine HCl [Apresoline 25 mg Tablet] 25 mg PO Q8 #90 tablet 08/06/16 Torsemide [Demadex 20 mg Tablet] 20 mg PO DAILY #30 tablet 08/06/16 Calcitriol [Rocaltrol 0.25 mcg Capsule] 0.25 mcg PO DAILY 03/13/20 Cholecalciferol (Vitamin D3) [Vitamin D3 1000 Unit Tablet] 5,000 unit PO DAILY 03/13/20 Febuxostat [Uloric 40 mg Tablet] 40 mg PO DAILY 03/13/20 Rosuvastatin Calcium [Crestor] 20 mg PO DAILY 03/13/20 Allergies/Adverse Reactions: Sulfa (Sulfonamide Antibiotics) Allergy (Verified 03/13/20 10:42) Review of Systems All systems: reviewed and no additional remarkable complaints except as stated - All systems were reviewed and were negative except as noted in the HPI, but this patient is a terrible historian Physical Exam Vital Signs: Temp Pulse Resp BP Pulse Ox 98.6 F 124 H 16 131/78 H 93 03/13/20 16:36 03/13/20 16:36 03/13/20 16:36 03/13/20 16:36 03/13/20 16:36 Intake & Output 03/12/20 03/13/20 03/14/20 06:59 06:59 06:59 Output Total 200 Balance -200 Weight 136.078 kg 136.078 kg General appearance: PRESENT: no acute distress, cooperative, disheveled, morbidly obese Head exam: PRESENT: atraumatic, normocephalic Eye exam: PRESENT: EOMI, PERRLA. ABSENT: conjunctival injection, nystagmus, scleral icterus Ear exam: PRESENT: normal external ear exam Mouth exam: PRESENT: dry mucosa, neck supple Teeth exam: PRESENT: poor dentation Throat exam: ABSENT: post pharyngeal erythema Neck exam: PRESENT: full ROM. ABSENT: carotid bruit, JVD - But difficult to tell due to his body habitus, lymphadenopathy, meningismus, tenderness, thyromegaly Respiratory exam: PRESENT: decreased breath sounds - Difficult to hear due to b charles habitus, symmetrical, unlabored. ABSENT: accessory muscle use, chest wall tenderness, crackles, prolonged expiratory phas, rhonchi, tachypnea, wheezes Cardiovascular exam: PRESENT: irregular rhythm, +S1, +S2, systolic murmur Pulses: PRESENT: normal carotid pulses Vascular exam: PRESENT: normal capillary refill GI/Abdominal exam: PRESENT: normal bowel sounds, soft, other - Pendulous abdominal pannus. ABSENT: distended, guarding, rebound, tenderness Extremities exam: PRESENT: pedal edema, +1 edema, other - Evidence of chronic venous insufficiency. ABSENT: clubbing Musculoskeletal exam: PRESENT: normal inspection. ABSENT: deformity Neurological exam: PRESENT: alert, awake, oriented to person, oriented to place, oriented to situation, CN II-XII grossly intact. ABSENT: motor sensory deficit Psychiatric exam: PRESENT: flat affect Skin exam: PRESENT: dry, warm Results Laboratory Results: 03/13/20 08:39 03/13/20 08:39 03/13/20 03/13/20 03/13/20 08:39 08:39 08:39 WBC 12.8 H RBC 3.73 L Hgb 10.8 L Hct 33.8 L MCV 91 MCH 29.1 MCHC 32.0 RDW 14.7 H Plt Count 282 Seg Neutrophils % 77.9 Carbonic Acid HCO3/H2CO3 Ratio ABG pH ABG pCO2 ABG pO2 ABG HCO3 ABG O2 Saturation ABG Base Excess FiO2 Sodium 140.9 Potassium 5.7 H Chloride 107 Carbon Dioxide 26 Anion Gap 8 BUN 65 H Creatinine 2.87 H Est GFR ( Amer) 26 L Glucose 129 H Calcium 10.1 Magnesium 2.0 Total Bilirubin 0.6 AST 22 Alkaline Phosphatase 84 Total Protein 7.1 Albumin 4.0 TSH 03/13/20 03/13/20 08:39 09:12 WBC RBC Hgb Hct MCV MCH MCHC RDW Plt Count Seg Neutrophils % Carbonic Acid 1.66 H HCO3/H2CO3 Ratio 15:1 ABG pH 7.29 L ABG pCO2 55.1 H ABG pO2 71.8 L ABG HCO3 26.0 H ABG O2 Saturation 92.5 L ABG Base Excess -1.1 FiO2 4L Sodium Potassium Chloride Carbon Dioxide Anion Gap BUN Creatinine Est GFR ( Amer) Glucose Calcium Magnesium Total Bilirubin AST Alkaline Phosphatase Total Protein Albumin TSH 1.24 03/13/20 08:39 Troponin I 0.075 NT-Pro-B Natriuret Pep 7080 H Impressions: Knee X-Ray 03/12/20 23:44 IMPRESSION: Osteopenia with advanced degenerative change copyright 2010 [employer]- All Rights Reserved Chest X-Ray 03/13/20 07:54 IMPRESSION: Constellation of findings suggests CHF exacerbation. Infectious etiology is not excluded. Assessment and Plan - Diagnosis (1) Atrial fibrillation Qualifiers: Atrial fibrillation type: unspecified Qualified Code(s): I48.91 - Unspecified atrial fibrillation Is this a current diagnosis for this admission?: Yes Plan: No prior history, was noted to be in atrial fibrillation on the monitor. We will continue his beta-hugh for now. Echocardiogram is pending. (2) Degenerative arthritis of knee, bilateral Qualifiers: Osteoarthritis type: unspecified Qualified Code(s): M17.0 - Bilateral primary osteoarthritis of knee Is this a current diagnosis for this admission?: Yes Plan: Outpatient follow-up, physical therapy evaluation (3) Fall Qualifiers: Encounter type: initial encounter Qualified Code(s): W19.XXXA - Unspecified fall, initial encounter Is this a current diagnosis for this admission?: Yes Plan: Once he improves medically, we will get a physical therapy evaluation (4) Hyperkalemia Is this a current diagnosis for this admission?: Yes Plan: A potassium shift was done in the ER. We will follow-up his electrolytes. (5) Acute on chronic diastolic (congestive) heart failure Is this a current diagnosis for this admission?: Yes Plan: Last echocardiogram we have on him here several years old. At that time his EF was preserved but he was noted to have some pulmonary hypertension and some diastolic dysfunction. We will treat him with respiratory support as needed and IV Lasix. We will get him back on his beta-hugh. Echocardiogram is pending. (6) Acute on chronic respiratory failure with hypoxemia Is this a current diagnosis for this admission?: Yes Plan: BiPAP and supplemental O2 as needed to maintain SPO2 greater than 90%. He is not on oxygen chronically at home. (7) Morbid obesity with BMI of 40.0-44.9, adult Is this a current diagnosis for this admission?: Yes Plan: We will strongly encourage dietary and activity modification (8) Anemia in chronic kidney disease (CKD) Qualifiers: Chronic kidney disease stage: stage 3 (moderate) Qualified Code(s): N18.3 - Chronic kidney disease, stage 3 (moderate); D63.1 - Anemia in chronic kidney disease Is this a current diagnosis for this admission?: Yes Plan: No need for transfusion at this time, will monitor closely (9) Coronary artery disease Qualifiers: Coronary Disease-Associated Artery/Lesion type: [place] artery [place] vs. transplanted heart: [place] heart Is this a current diagnosis for this admission?: Yes Plan: We will continue home medication regimen (10) Hypertensive urgency Is this a current diagnosis for this admission?: Yes Plan: Blood pressure came down with IV medication in the ER. We will get him back on his medications because he did not take them this morning. (11) Pulmonary hypertension Is this a current diagnosis for this admission?: Yes Plan: This is definitely playing a role. This will be better evaluated on echocardiogram. (12) Chronic kidney disease (CKD) stage G3b/A1, moderately decreased glomerular filtration rate (GFR) between 30-44 mL/min/1.73 square meter and albuminuria creatinine ratio less than 30 mg/g Is this a current diagnosis for this admission?: Yes Plan: Creatinine is in his usual range - Time Time Spent with patient: 35 or more minutes - Inpatient Certification Based on my medical assessment, after consideration of the patient's comorbidities, presenting symptoms, or acuity I expect that the services needed warrant INPATIENT care.: Yes I certify that my determination is in accordance with my understanding of Medicare's requirements for reasonable and necessary INPATIENT services [42 CFR 412.3e].: Yes Medical Necessity: Significant Comorbidiites Make Outpatient Treatment Too Risky, Need Close Monitoring Due to Risk of Patient Decompensation, Need For Continuous Telemetry Monitoring, Need for Nebulizer Therapy and Monitoring of Response, Risk of Complication if Not Cared For in Hospital
--- NOTE | 2020-03-13 19:10 | XCELERA REPORT ---
[address] [address] Transthoracic Echocardiogram Report Name: YOLANDA BERNSTEIN JR, JR Age: 80 yrs Gender: Male : 1940 Patient Status: Inpatient Patient Location: [facility]^A Study Date: 03/13/2020 05:08 PM History: CHF Atrial fibrillation Height: 72 in Weight: 300 lb BSA: 2.5 m2 Procedure: A complete two-dimensional transthoracic echocardiogram was performed (2D, M-mode, spectral and color flow Doppler). The study was technically difficult with many images being suboptimal in quality. Reason For Study: acute chf, afib Previous Evaluation: A previous study was performed on 08/02/2016 Preserved LVEF reported. History: CHF. Ordering Physician: QUAN WILCOX Performed By: Sophia Harris Interpretation Summary Left ventricular systolic function is normal. The Ejection Fraction estimate is 60-65% The right ventricle is normal in size and function. There is mild aortic stenosis There is mild pulmonary hypertension by echo There is no pericardial effusion. MMode/2D Measurements & Calculations RVDd: 2.8 cm LVIDd: 4.9 cm FS: 33.9 % Ao root diam: 2.7 cm IVSd: 1.1 cm LVIDs: 3.2 cm EDV(Teich): 111.1 ml Ao root area: 5.5 cm2 LVPWd: 0.99 cm ESV(Teich): 41.4 ml LA dimension: 3.8 cm EF(Teich): 62.7 % LVOT diam: 1.8 cm LVOT area: 2.5 cm2 Doppler Measurements & Calculations MV E max trace: MV P1/2t max trace: Ao V2 max: LV V1 max P.6 cm/sec 105.1 cm/sec 205.1 cm/sec 6.7 mmHg MV P1/2t: 81.1 msec Ao max PG: LV V1 mean PG: MVA(P1/2t): 2.7 cm2 16.8 mmHg 2.1 mmHg MV dec slope: Ao V2 mean: LV V1 max: 105.5 cm/sec 129.4 cm/sec 379.6 cm/sec2 Ao mean PG: LV V1 mean: MV dec time: 0.19 sec 6.1 mmHg 64.2 cm/sec Ao V2 VTI: 36.0 cmLV V1 VTI: 21.7 cm MONY(I,D): 1.5 cm2 MONY(V,D): 1.6 cm2 SV(LVOT): 54.8 ml PA V2 max: TR max trace: MV P1/2t-pr_phl: 132.7 cm/sec 295.7 cm/sec 81.1 msec PA max P.0 mmHg TR max P.0 mmHg Left Ventricle The left ventricle is grossly normal size. There is moderate concentric left ventricular hypertrophy. Left ventricular systolic function is normal. The Ejection Fraction estimate is 60-65%. LV diastolic function not assessed. Regional wall motion abnormalities cannot be excluded due to limited visualization. Right Ventricle The right ventricle is normal in size and function. Atria The right atrium is normal. The left atrium is moderately dilated. Mitral Valve The mitral valve is grossly normal. There is no mitral regurgitation noted. Aortic Valve The aortic valve is not well visualized secondary to technical limitations. In limited views the valve seems to open well. There is mild aortic stenosis. Tricuspid Valve The tricuspid valve is not well visualized, but is grossly normal. There is a trace amount of tricuspid regurgitation. Right ventricular systolic pressure is estimated to be elevated at 30-40mmHg. There is mild pulmonary hypertension by echo. Pulmonic Valve The pulmonic valve is not well visualized. There is a trace amount of pulmonic regurgitation. Great Vessels The aortic root is normal size. Effusions There is no pericardial effusion. : QUAN WILCOX Anil
--- NOTE | 2020-03-13 19:27 | EKG REPORT ---
SEVERITY:- ABNORMAL ECG - ATRIAL FIBRILLATION, V-RATE 77-127 LEFT BUNDLE BRANCH BLOCK : Confirmed by: Ezequiel Armenta 13-Mar-2020 19:26:50
[2020-03-13] MEDS: CARVEDILOL 12.5 MG TABLET PO SCH (21:29)
[2020-03-13] MEDS: ATORVASTATIN CALCIUM 40 MG TABLET PO SCH (21:30)
[2020-03-13] MEDS: HYDRALAZINE HCL 25 MG TABLET PO SCH (21:30)
[2020-03-13] MEDS ORDERED: FUROSEMIDE INJ/PF 40 MG/4 ML SDV IV SCH (22:00)
[2020-03-14] MEDS: HEPARIN SOD (PORCINE) 5,000 UNIT/ML 1 ML VIAL SUBCUT SCH ×3 (05:40→22:10)
[2020-03-14] MEDS: TRAMADOL HCL 50 MG TABLET PO PRN ×2 (05:40→17:09)
[2020-03-14] MEDS: HYDRALAZINE HCL 25 MG TABLET PO SCH ×3 (05:40→22:30)
[2020-03-14 06:20] LABS: HEMATOCRIT 27.2 % (37.9-51.0); HEMOGLOBIN 8.8 g/dL (13.5-17.0); MEAN CORPUSCULAR HEMOGLOBIN 29.3 pg (27.0-33.4); MEAN CORPUSCULAR HGB CONC 32.4 g/dL (32.0-36.0); MEAN CORPUSCULAR VOLUME 91 fl (80-97); PLATELET COUNT 208 10^3/uL (150-450); RED CELL DISTRIBUTION WIDTH 14.7 % (11.5-14.0); WHITE BLOOD COUNT 11.9 10^3/uL (4.0-10.5)
[2020-03-14 06:37] LABS: ANION GAP 9 (5-19); BLOOD UREA NITROGEN 74 mg/dL (7-20); CALCIUM 9.6 mg/dL (8.4-10.2); CARBON DIOXIDE 26 mmol/L (22-30); CHLORIDE 103 mmol/L (98-107); GLUCOSE 114 mg/dL (75-110); POTASSIUM 5.7 mmol/L (3.6-5.0)
[2020-03-14] MEDS ORDERED: (PENDING PHARMACY ID) (Rosuvastatin Calcium [Crestor] 20 MG) PO SCH (10:00)
[2020-03-14] MEDS ORDERED: (PENDING PHARMACY ID) (Lisinopril [Prinivil 20 Mg Tablet] 20 MG) PO SCH (10:00)
[2020-03-14] MEDS ORDERED: LISINOPRIL 10 MG TABLET PO SCH (10:00)
[2020-03-14] MEDS: FEBUXOSTAT 40 MG TABLET PO SCH (10:40)
[2020-03-14] MEDS: CARVEDILOL 12.5 MG TABLET PO SCH ×2 (10:40→22:10)
[2020-03-14] MEDS: CLOPIDOGREL BISULFATE 75 MG TABLET PO SCH (10:40)
--- NOTE | 2020-03-14 12:27 | PDOC PROGRESS REPORT ---
Subjective Progress Note for:: 03/14/20 Subjective:: No adverse events overnight. He is off BiPAP and back on the nasal cannula. Breathing has been comfortable. We talked about doing some physical therapy but he was not terribly excited about the idea of that. Reason For Visit: ACUTE HYPOXIC RESPIRATORY FAILURE, ACUTE CHF, HYPE Physical Exam Vital Signs: Temp Pulse Resp BP Pulse Ox 98.7 F 79 17 122/50 L 95 03/14/20 07:52 03/14/20 07:52 03/14/20 07:52 03/14/20 07:52 03/14/20 07:52 Intake & Output 03/13/20 03/14/20 03/15/20 06:59 06:59 06:59 Output Total 300 Balance -300 Weight 136.078 kg 135 kg General appearance: PRESENT: no acute distress, cooperative, disheveled, morbidly obese Respiratory exam: PRESENT: clear to auscultation [place] - Diminished, symmetrical, unlabored. ABSENT: accessory muscle use, chest wall tenderness, crackles, prolonged expiratory phas, rhonchi, tachypnea, wheezes Cardiovascular exam: PRESENT: irregular rhythm, +S1, +S2, systolic murmur Pulses: PRESENT: normal carotid pulses Vascular exam: PRESENT: normal capillary refill GI/Abdominal exam: PRESENT: normal bowel sounds, soft, other - Pendulous abdominal pannus. ABSENT: distended, guarding, rebound, tenderness Extremities exam: PRESENT: pedal edema - Trace. ABSENT: clubbing Musculoskeletal exam: PRESENT: normal inspection. ABSENT: deformity Neurological exam: PRESENT: awake, oriented to person, oriented to place, oriented to situation Psychiatric exam: PRESENT: flat affect Skin exam: PRESENT: dry, warm Results Laboratory Results: 03/14/20 05:39 03/14/20 05:39 03/14/20 03/14/20 05:39 05:39 WBC 11.9 H RBC 3.00 L Hgb 8.8 L Hct 27.2 L MCV 91 MCH 29.3 MCHC 32.4 RDW 14.7 H Plt Count 208 Sodium 138.4 Potassium 5.7 H Chloride 103 Carbon Dioxide 26 Anion Gap 9 BUN 74 H Creatinine 3.51 H Est GFR ( Amer) 20 L Glucose 114 H Calcium 9.6 03/13/20 08:39 Troponin I 0.075 NT-Pro-B Natriuret Pep 7080 H Impressions: Knee X-Ray 03/12/20 23:44 IMPRESSION: Osteopenia with advanced degenerative change copyright 2011 [employer]- All Rights Reserved Chest X-Ray 03/13/20 07:54 IMPRESSION: Constellation of findings suggests CHF exacerbation. Infectious etiology is not excluded. Assessment and Plan - Diagnosis (1) Atrial fibrillation Qualifiers: Atrial fibrillation type: unspecified Qualified Code(s): I48.91 - Unspecified atrial fibrillation Is this a current diagnosis for this admission?: Yes Plan: Rate is controlled, continue beta-hugh. We will have to consider anticoagulation after assessing his fall risk. (2) Degenerative arthritis of knee, bilateral Qualifiers: Osteoarthritis type: unspecified Qualified Code(s): M17.0 - Bilateral primary osteoarthritis of knee Is this a current diagnosis for this admission?: Yes Plan: Will order PT evaluation. He was not excited about the idea of doing physical therapy. (3) Fall Qualifiers: Encounter type: initial encounter Qualified Code(s): W19.XXXA - Unspecified fall, initial encounter Is this a current diagnosis for this admission?: Yes Plan: PT evaluation pending (4) Hyperkalemia Is this a current diagnosis for this admission?: Yes Plan: Potassium is unchanged from yesterday. We will monitor for now. (5) Acute on chronic diastolic (congestive) heart failure Is this a current diagnosis for this admission?: Yes Plan: He will need medical optimization. We gave him some Lasix yesterday and his creatinine bumped and so we stopped that for today. He is probably pretty close to being euvolemic. Echocardiogram shows a preserved ejection fraction, some mild pulmonary hypertension and mild aortic stenosis. (6) Acute on chronic respiratory failure with hypoxemia Is this a current diagnosis for this admission?: Yes Plan: Now off BiPAP, on 1.5 L nasal cannula with saturations in the mid to upper 90s. (7) Morbid obesity with BMI of 40.0-44.9, adult Is this a current diagnosis for this admission?: Yes Plan: Strongly encourage lifestyle modification with weight loss of this will help numerous of his medical issues, including his knee pain from arthritis (8) Anemia in chronic kidney disease (CKD) Qualifiers: Chronic kidney disease stage: stage 3 (moderate) Qualified Code(s): N18.3 - Chronic kidney disease, stage 3 (moderate); D63.1 - Anemia in chronic kidney disease Is this a current diagnosis for this admission?: Yes Plan: No need for transfusion at this time, will monitor closely (9) Coronary artery disease Qualifiers: Coronary Disease-Associated Artery/Lesion type: [place] artery [place] vs. transplanted heart: [place] heart Is this a current diagnosis for this admission?: Yes Plan: We will continue home medication regimen (10) Hypertensive urgency Is this a current diagnosis for this admission?: Yes Plan: Blood pressures have improved after resuming his home medications (11) Pulmonary hypertension Is this a current diagnosis for this admission?: Yes Plan: Mild pulmonary hypertension on echocardiogram right ventricular systolic pressure was 30 to 40 mmHg (12) Chronic kidney disease (CKD) stage G3b/A1, moderately decreased glomerular filtration rate (GFR) between 30-44 mL/min/1.73 square meter and albuminuria creatinine ratio less than 30 mg/g Is this a current diagnosis for this admission?: Yes Plan: Creatinine worsened from yesterday, [place] is on hold - Time Time Spent with patient: 25-34 minutes
--- NOTE | 2020-03-14 22:05 | EKG REPORT ---
SEVERITY:- ABNORMAL ECG - ATRIAL FIBRILLATION, V-RATE 53-90 LEFT BUNDLE BRANCH BLOCK : Confirmed by: Ezequiel Armenta 14-Mar-2020 22:04:18
[2020-03-14] MEDS: ATORVASTATIN CALCIUM 40 MG TABLET PO SCH (22:10)
[2020-03-15] MEDS: HEPARIN SOD (PORCINE) 5,000 UNIT/ML 1 ML VIAL SUBCUT SCH ×3 (05:19→21:55)
[2020-03-15] MEDS: HYDRALAZINE HCL 25 MG TABLET PO SCH (05:39)
[2020-03-15 05:43] LABS: HEMATOCRIT 27.2 % (37.9-51.0); HEMOGLOBIN 8.7 g/dL (13.5-17.0); MEAN CORPUSCULAR HEMOGLOBIN 29.3 pg (27.0-33.4); MEAN CORPUSCULAR HGB CONC 31.9 g/dL (32.0-36.0); MEAN CORPUSCULAR VOLUME 92 fl (80-97); PLATELET COUNT 186 10^3/uL (150-450); RED BLOOD COUNT 2.97 10^6/uL (4.35-5.55); RED CELL DISTRIBUTION WIDTH 14.9 % (11.5-14.0); WHITE BLOOD COUNT 11.1 10^3/uL (4.0-10.5)
[2020-03-15] MEDS: TRAMADOL HCL 50 MG TABLET PO PRN (06:21)
[2020-03-15 06:26] LABS: ANION GAP 10 (5-19); CALCIUM 9.3 mg/dL (8.4-10.2); CARBON DIOXIDE 25 mmol/L (22-30); CHLORIDE 101 mmol/L (98-107); GLUCOSE 119 mg/dL (75-110)
[2020-03-15 06:41] LABS: BLOOD UREA NITROGEN 95 mg/dL (7-20)
[2020-03-15 06:42] LABS: POTASSIUM 6.3 mmol/L (3.6-5.0)
[2020-03-15] MEDS: CLOPIDOGREL BISULFATE 75 MG TABLET PO SCH (09:25)
[2020-03-15] MEDS: FEBUXOSTAT 40 MG TABLET PO SCH (09:26)
[2020-03-15] MEDS: CARVEDILOL 12.5 MG TABLET PO SCH ×2 (09:29→21:56)
[2020-03-15] MEDS: NORMAL SALINE 1000 ML 1,000 ML IV PRN ×2 (09:58→18:48)
[2020-03-15] MEDS ORDERED: DEXTROSE 50%-WATER 25 GM/50 ML DISP.SYRIN IV ONE (10:00)
[2020-03-15] MEDS ORDERED: INSULIN REG, HUMAN 100 UNIT/ML 3 ML VIAL (PYX) IV ONE (10:00)
[2020-03-15] MEDS ORDERED: CALCIUM GLUCONATE 1000 MG/10 ML INJ IV ONE (10:00)
[2020-03-15] MEDS ORDERED: SODIUM POLYSTYRENE SULFONATE 15 GM/60 ML PO ONE (10:00)
[2020-03-15 10:54] LABS: ARTERIAL BLOOD BASE EXCESS -1.5 mmol/L; ARTERIAL BLOOD FIO2 1.5L; ARTERIAL BLOOD H2CO3 2.29 mmol/L (1.05-1.35); ARTERIAL BLOOD HCO3 27.6 mmol/L (20-24); ARTERIAL BLOOD O2 SATURATION 90.9 % (94-98)
[2020-03-15 10:56] LABS: ARTERIAL BLOOD PCO2 76.2 mmHg (35-45); ARTERIAL BLOOD PH 7.18 (7.35-7.45)
[2020-03-15] MEDS ORDERED: NORMAL SALINE 1000 ML 1,000 ML IV ONE ×3 (13:45→17:45)
--- NOTE | 2020-03-15 14:40 | RADIOLOGY REPORT (SQ) ---
EXAM DESCRIPTION: CHEST SINGLE VIEW IMAGES COMPLETED DATE/TIME: 03/15/2020 2:03 pm REASON FOR STUDY: CENTRAL LINE COMPARISON: Chest x-ray 03/13/2020. EXAM PARAMETERS: NUMBER OF VIEWS: One view. TECHNIQUE: Single frontal radiographic view of the chest acquired. RADIATION DOSE: NA LIMITATIONS: None. FINDINGS: LUNGS AND PLEURA: No consolidation, pneumothorax or pleural effusion. MEDIASTINUM AND HILAR STRUCTURES: No masses. Contour normal. HEART AND VASCULAR STRUCTURES: The heart is enlarged. There is mild vascular congestion. BONES: No acute findings. HARDWARE: Interval placement of a right-sided central line with the tip overlying the right atrium. IMPRESSION: 1. Interval placement of a right-sided central line with the tip overlying the right a trium. 2. Cardiomegaly. Mild vascular congestion. TECHNICAL DOCUMENTATION: JOB ID: [id number] 2010 [employer]- All Rights Reserved Reading location - IP/workstation name: [email or web address]
[2020-03-15 15:18] LABS: ALBUMIN 3.1 g/dL (3.5-5.0); ALKALINE PHOSPHATASE 55 U/L (38-126); ANION GAP 8 (5-19); ASPARTATE AMINO TRANSFERASE 42 U/L (17-59); BILIRUBIN,DIRECT 0.1 mg/dL (0.0-0.4); BILIRUBIN,TOTAL 0.4 mg/dL (0.2-1.3); BLOOD UREA NITROGEN 94 mg/dL (7-20); CALCIUM 8.9 mg/dL (8.4-10.2); CARBON DIOXIDE 27 mmol/L (22-30); CHLORIDE 101 mmol/L (98-107); GLUCOSE 115 mg/dL (75-110); POTASSIUM 5.5 mmol/L (3.6-5.0)
--- NOTE | 2020-03-15 15:27 | Operative Report ---
Operative Report DATE OF SURGERY: 03/15/20 PREOPERATIVE DIAGNOSIS: 1. Congestive heart failure. 2. Morbid obesity POSTOPERATIVE DIAGNOSIS: Same OPERATION: 1. Focused ultrasound right neck. 2. Ultrasound directed insertion of triple-lumen right internal jugular vein. 3. Interpretation, portable chest x-ray SURGEON: SANCHO JURADO ANESTHESIA: Local TISSUE REMOVED OR ALTERED: See below ESTIMATED BLOOD LOSS: Scant INTRAOPERATIVE FINDINGS: See below PROCEDURE: Informed consent was obtained. The patient was placed in Trendelenburg the right neck and chest wall were exposed, and prepped and draped in a sterile fashion. Surgical plan and surgical timeout discussed. The right neck was anesthetized with 1% lidocaine without epinephrine. Using the variable frequency linear transducer, real time, a 18-gauge needle and wire were threaded into the right internal jugular vein. The tract was dilated up, the dilator removed, and the triple-lumen central venous access catheter was threaded into the right internal jugular vein uneventfully to the hub. There was excellent aspiration and flush of saline through all 3 lumens. The catheter was affixed to the skin with a Biopatch and 2-0 silk suture; sterile dressing applied. The patient tolerated the procedure well. There were no complications. Port able upright chest x-ray demonstrated tip of the catheter in the right atrium, no pneumothorax. Results of the x-ray conveyed to nursing staff. Plan: 1. May use catheter 2. Surgery will sign off; please reconsult if clinically indicated
--- NOTE | 2020-03-15 16:09 | PDOC PROGRESS REPORT ---
Subjective Progress Note for:: 03/15/20 Subjective:: His blood pressure was low this morning. His creatinine was worse. He was awake but he seemed very subdued. ABG showed a respiratory acidosis. Dr. Abdullahi came in and put in a central line. We gave him some fluids and his blood pressure has improved some but is still pretty low. We put him on BiPAP and have had to encourage him to take deep breaths. Reason For Visit: ACUTE HYPOXIC RESPIRATORY FAILURE, ACUTE CHF, HYPE Physical Exam Vital Signs: Temp Pulse Resp BP Pulse Ox 98.8 F 62 16 94/28 L 93 03/15/20 08:26 03/15/20 14:00 03/15/20 15:51 03/15/20 14:23 03/15/20 15:51 Intake & Output 03/14/20 03/15/20 03/16/20 06:59 06:59 06:59 Intake Total 695 1481 Output Total 300 275 Balance -519 778 2994 Weight 135 kg General appearance: PRESENT: Moderate distress, cooperative, disheveled, morbidly obese Respiratory exam: PRESENT: Occasional rhonchi, symmetrical, unlabored. ABSENT: accessory muscle use, chest wall tenderness, crackles, prolonged expiratory phase, tachypnea, wheezes Cardiovascular exam: PRESENT: irregular rhythm, +S1, +S2, systolic murmur Pulses: PRESENT: normal carotid pulses Vascular exam: PRESENT: normal capillary refill GI/Abdominal exam: PRESENT: normal bowel sounds, soft, other - Pendulous abdominal pannus. ABSENT: distended, guarding, rebound, tenderness Extremities exam: PRESENT: pedal edema - Trace. ABSENT: clubbing Musculoskeletal exam: PRESENT: normal inspection. ABSENT: deformity Neurological exam: PRESENT: awake, oriented to person, follows commands, answers questions appropriately Psychiatric exam: PRESENT: flat affect Skin exam: PRESENT: dry, warm Results Laboratory Results: 03/15/20 05:00 03/15/20 14:20 03/15/20 03/15/20 03/15/20 05:00 05:00 10:43 WBC 11.1 H RBC 2.97 L Hgb 8.7 L Hct 27.2 L MCV 92 MCH 29.3 MCHC 31.9 L RDW 14.9 H Plt Count 186 Carbonic Acid 2.29 H HCO3/H2CO3 Ratio 12:1 ABG pH 7.18 L* ABG pCO2 76.2 H* ABG pO2 76.0 L ABG HCO3 27.6 H ABG O2 Saturation 90.9 L ABG Base Excess -1.5 FiO2 1.5L Sodium 136.3 L Potassium 6.3 H* Chloride 101 Carbon Dioxide 25 Anion Gap 10 BUN 95 H D Creatinine 4.68 H Est GFR ( Amer) 15 L Glucose 119 H Calcium 9.3 Total Bilirubin AST Alkaline Phosphatase Total Protein Albumin 03/15/20 14:20 WBC RBC Hgb Hct MCV MCH MCHC RDW Plt Count Carbonic Acid HCO3/H2CO3 Ratio ABG pH ABG pCO2 ABG pO2 ABG HCO3 ABG O2 Saturation ABG Base Excess FiO2 Sodium 135.9 L Potassium 5.5 H Chloride 101 Carbon Dioxide 27 Anion Gap 8 BUN 94 H Creatinine 5.62 H Est GFR ( Amer) 12 L Glucose 115 H Calcium 8.9 Total Bilirubin 0.4 AST 42 Alkaline Phosphatase 55 Total Protein 6.0 L Albumin 3.1 L 03/13/20 08:39 Troponin I 0.075 NT-Pro-B Natriuret Pep 7080 H Impressions: Knee X-Ray 03/12/20 23:44 IMPRESSION: Osteopenia with advanced degenerative change copyright 2011 [employer]- All Rights Reserved Chest X-Ray 03/15/20 00:00 IMPRESSION: 1. Interval placement of a right-sided central line with the tip overlying the right atrium. 2. Cardiomegaly. Mild vascular congestion. Assessment and Plan - Diagnosis (1) Atrial fibrillation Qualifiers: Atrial fibrillation type: unspecified Qualified Code(s): I48.91 - Unspecified atrial fibrillation Is this a current diagnosis for this admission?: Yes Plan: Rate is controlled, continue beta-hugh. We will have to consider anticoagulation after assessing his fall risk. (2) Degenerative arthritis of knee, bilateral Qualifiers: Osteoarthritis type: unspecified Qualified Code(s): M17.0 - Bilateral primary osteoarthritis of knee Is this a current diagnosis for this admission?: Yes Plan: Will order PT evaluation. He was not excited about the idea of doing physical therapy. (3) Fall Qualifiers: Encounter type: initial encounter Qualified Code(s): W19.XXXA - Unspecified fall, initial encounter Is this a current diagnosis for this admission?: Yes Plan: PT evaluation pending (4) Hyperkalemia Is this a current diagnosis for this admission?: Yes Plan: Potassium was elevated again this morning. I gave him some calcium, Kayexalate, insulin and glucose. Repeat metabolic panel is pending. (5) Acute on chronic diastolic (congestive) heart failure Is this a current diagnosis for this admission?: Yes Plan: He will need medical optimization. He does not appear to be in acute failure at this time. Diuretics held because of blood pressure and renal function. He only got 2 doses of Lasix. Echocardiogram shows a preserved ejection fraction, some mild pulmonary hypertension and mild aortic stenosis. (6) Acute on chronic respiratory failure with hypoxemia Is this a current diagnosis for this admission?: Yes Plan: Oxygen saturations were good, now on BiPAP due to hypercapnia (7) Morbid obesity with BMI of 40.0-44.9, adult Is this a current diagnosis for this admission?: Yes Plan: Strongly encourage lifestyle modification with weight loss of this will help numerous of his medical issues, including his knee pain from arthritis (8) Anemia in chronic kidney disease (CKD) Qualifiers: Chronic kidney disease stage: stage 3 (moderate) Qualified Code(s): N18.3 - Chronic kidney disease, stage 3 (moderate); D63.1 - Anemia in chronic kidney disease Is this a current diagnosis for this admission?: Yes Plan: Have started fluids because he appears to have worsening renal failure, possibly from prerenal azotemia on top of his chronic kidney disease (9) Coronary artery disease Qualifiers: Coronary Disease-Associated Artery/Lesion type: [place] artery [place] vs. transplanted heart: [place] heart Is this a current diagnosis for this admission?: Yes Plan: We will continue home medication regimen (10) Hypertensive urgency Is this a current diagnosis for this admission?: Yes Plan: Blood pressures have improved after resuming his home medications. They are on hold for now because of hypotension. (11) Pulmonary hypertension Is this a current diagnosis for this admission?: Yes Plan: Mild pulmonary hypertension on echocardiogram right ventricular systolic pressure was 30 to 40 mmHg (12) Chronic kidney disease (CKD) stage G3b/A1, moderately decreased glomerular filtration rate (GFR) between 30-44 mL/min/1.73 square meter and albuminuria creatinine ratio less than 30 mg/g Is this a current diagnosis for this admission?: Yes Plan: Creatinine worsened from yesterday, Lasix is on hold. Now getting fluids. (13) Acute kidney injury superimposed on chronic kidney disease Is this a current diagnosis for this admission?: Yes Plan: Fluids initiated (14) Acute hypercapnic respiratory failure Is this a current diagnosis for this admission?: Yes Plan: He has been started on BiPAP, currently protecting his airway. We will take deep breaths when encouraged. Repeat ABG is pending. (15) Hypotension Qualifiers: Hypotension type: hypotension due to hypovolemia Qualified Code(s): I95.89 - Other hypotension; E86.1 - Hypovolemia Is this a current diagnosis for this admission?: Yes Plan: We got fluids running now, and he initially responded but his pressures are still pretty low so we are starting some dopamine. - Time Time Spent with patient: 35 or more minutes
[2020-03-15] MEDS: DOPAMINE HCL/DEXTROSE 5%-WATER 800 MG/250 ML RTUINJ IV PRN (16:17)
[2020-03-15 18:00] LABS: ARTERIAL BLOOD BASE EXCESS -5.4 mmol/L; ARTERIAL BLOOD HCO3 24.2 mmol/L (20-24); ARTERIAL BLOOD O2 SATURATION 83.9 % (94-98); ARTERIAL BLOOD PO2 64.5 mmHg (80-100); ARTERIAL BLOOD TOTAL CO2 26.6 mmol/L (23-27)
[2020-03-15 18:02] LABS: ARTERIAL BLOOD PH 7.12 (7.35-7.45)
[2020-03-15 18:03] LABS: ARTERIAL BLOOD FIO2 30%; ARTERIAL BLOOD PCO2 76.3 mmHg (35-45)
[2020-03-15] MEDS ORDERED: HYDROCORTISONE SOD SUCCINATE INJ/PF 100 MG/2 ML SDV IV ONE (18:33)
[2020-03-15] MEDS: HYDROCORTISONE SOD SUCCINATE INJ/PF 100 MG/2 ML SDV IV SCH (21:53)
[2020-03-15] MEDS: ATORVASTATIN CALCIUM 40 MG TABLET PO SCH (21:56)
[2020-03-16 00:26] LABS: ARTERIAL BLOOD BASE EXCESS -6.9 mmol/L; ARTERIAL BLOOD H2CO3 2.35 mmol/L (1.05-1.35); ARTERIAL BLOOD HCO3 23.8 mmol/L (20-24); ARTERIAL BLOOD O2 SATURATION 93.1 % (94-98); ARTERIAL BLOOD PO2 90.3 mmHg (80-100); ARTERIAL BLOOD TOTAL CO2 26.2 mmol/L (23-27)
[2020-03-16 00:32] LABS: ARTERIAL BLOOD FIO2 40%
[2020-03-16 00:34] LABS: ARTERIAL BLOOD PCO2 78.2 mmHg (35-45)
[2020-03-16 00:37] LABS: ANION GAP 9 (5-19); BLOOD UREA NITROGEN 98 mg/dL (7-20); CALCIUM 8.4 mg/dL (8.4-10.2); CARBON DIOXIDE 25 mmol/L (22-30); CHLORIDE 102 mmol/L (98-107); GLUCOSE 130 mg/dL (75-110)
[2020-03-16 00:44] LABS: POTASSIUM 6.1 mmol/L (3.6-5.0)
[2020-03-16 01:53] LABS: ARTERIAL BLOOD H2CO3 2.53 mmol/L (1.05-1.35); ARTERIAL BLOOD HCO3 24.8 mmol/L (20-24); ARTERIAL BLOOD O2 SATURATION 93.8 % (94-98); ARTERIAL BLOOD PO2 95.5 mmHg (80-100); ARTERIAL BLOOD TOTAL CO2 27.4 mmol/L (23-27)
[2020-03-16 01:56] LABS: ARTERIAL BLOOD FIO2 40%; ARTERIAL BLOOD PCO2 83.9 mmHg (35-45); ARTERIAL BLOOD PH 7.09 (7.35-7.45)
[2020-03-16] MEDS: NORMAL SALINE 1000 ML 1,000 ML IV PRN ×3 (03:00→17:43)
[2020-03-16 03:15] LABS: ARTERIAL BLOOD BASE EXCESS -9.2 mmol/L; ARTERIAL BLOOD HCO3 20.7 mmol/L (20-24); ARTERIAL BLOOD O2 SATURATION 93.8 % (94-98); ARTERIAL BLOOD PCO2 66.3 mmHg (35-45); ARTERIAL BLOOD PO2 91.7 mmHg (80-100); ARTERIAL BLOOD TOTAL CO2 22.7 mmol/L (23-27)
[2020-03-16 03:19] LABS: ARTERIAL BLOOD FIO2 40%; ARTERIAL BLOOD PH 7.11 (7.35-7.45)
[2020-03-16] MEDS: HEPARIN SOD (PORCINE) 5,000 UNIT/ML 1 ML VIAL SUBCUT SCH ×3 (05:45→21:10)
[2020-03-16] MEDS: HYDROCORTISONE SOD SUCCINATE INJ/PF 100 MG/2 ML SDV IV SCH ×3 (05:46→21:09)
[2020-03-16] MEDS: DOPAMINE HCL/DEXTROSE 5%-WATER 800 MG/250 ML RTUINJ IV PRN ×2 (06:48→14:30)
[2020-03-16 07:41] LABS: HEMATOCRIT 27.8 % (37.9-51.0); MEAN CORPUSCULAR HEMOGLOBIN 29.9 pg (27.0-33.4); MEAN CORPUSCULAR HGB CONC 32.5 g/dL (32.0-36.0); MEAN CORPUSCULAR VOLUME 92 fl (80-97); PLATELET COUNT 230 10^3/uL (150-450); RED BLOOD COUNT 3.02 10^6/uL (4.35-5.55); WHITE BLOOD COUNT 10.6 10^3/uL (4.0-10.5)
[2020-03-16 08:07] LABS: ANION GAP 13 (5-19); BLOOD UREA NITROGEN 102 mg/dL (7-20); CALCIUM 8.1 mg/dL (8.4-10.2); CARBON DIOXIDE 22 mmol/L (22-30); CHLORIDE 102 mmol/L (98-107); GLUCOSE 140 mg/dL (75-110)
[2020-03-16 08:14] LABS: POTASSIUM 6.3 mmol/L (3.6-5.0)
[2020-03-16] MEDS: CLOPIDOGREL BISULFATE 75 MG TABLET PO SCH (10:20)
[2020-03-16] MEDS ORDERED: HEPARIN SOD (PORCINE) 1,000 UNIT/ML 10 ML VIAL IV PRN (10:25)
[2020-03-16] MEDS: CARVEDILOL 12.5 MG TABLET PO SCH ×2 (10:28→21:10)
[2020-03-16] MEDS: FEBUXOSTAT 40 MG TABLET PO SCH (10:28)
[2020-03-16] MEDS ORDERED: TUBERCULIN,PURIF.PROT.DERIV. 5 TU/0.1 ML TEST 1 ML VIAL ID ONE (11:30)
--- NOTE | 2020-03-16 13:15 | Operative Report ---
Nonrecallable Operative Report DATE OF SURGERY: 03/16/20 PREOPERATIVE DIAGNOSIS: Chronic kidney disease, need for dialysis POSTOPERATIVE DIAGNOSIS: Same as above OPERATION: 1. Ultrasound-guided central venous puncture. 2. Right femoral Vas-Cath placement SURGEON: NELLI CHANDLER ANESTHESIA: Local TISSUE REMOVED OR ALTERED: None COMPLICATIONS: None apparent ESTIMATED BLOOD LOSS: Minimal PROCEDURE: Drains/implants: Right femoral 30 cm Vas-Cath placement. Procedure in detail: After informed consent was obtained, the patient was laid in the supine position in the hospital room. The area of the right groin was prepped and draped in a normal sterile fashion. The ultrasound was used to identify the right femoral vein. Under direct ultrasonic guidance, the right femoral vein was accessed. Dark venous, nonpulsatile blood was returned in the syringe. Next, the wire was easily inserted. The wire was confirmed to be within the lumen of the vein using the ultrasound device. Picture documentation was placed on the chart. The dilator was inserted over the wire. Next, the catheter was slid over the wire, using a modified Seldinger technique. The entire 30 cm catheter was completely inserted. The catheter was then sutured to the skin. A pressure test was performed using IV tubing, to ensure that venous pressure was seen within the catheter. This confirmed that the catheter was indeed within the venous system. Catheter was aspirated and flushed x3. It returned dark, venous, nonpulsatile blood. A dressing was placed, and the procedure was concluded. All sponge, instrument, and needle counts were correct. Condition: Fair.
--- NOTE | 2020-03-16 14:57 | PDOC PROGRESS REPORT ---
Subjective Progress Note for:: 03/16/20 Subjective:: Incredibly, Mr. Burnett actually looks better today. His blood pressure has improved and he is more awake. His CO2 has improved a little bit but his pH is still low. His bicarbonate is actually within the normal range on his blood gas. His creatinine has at least stabilized but he is still not put out any urine. Reason For Visit: ACUTE HYPOXIC RESPIRATORY FAILURE, ACUTE CHF, HYPE Physical Exam Vital Signs: Temp Pulse Resp BP Pulse Ox 97.5 F 85 21 H 130/60 H 99 03/16/20 09:25 03/16/20 10:00 03/16/20 09:25 03/16/20 10:00 03/16/20 09:25 Intake & Output 03/15/20 03/16/20 03/17/20 06:59 06:59 06:59 Intake Total 695 4370 975 Output Total 275 50 Balance 420 4320 975 Weight 154.6 kg General appearance: PRESENT: no acute distress, cooperative, disheveled, morbidly obese Respiratory exam: PRESENT: clear to auscultation [place] - Diminished, symmetrical, unlabored. ABSENT: accessory muscle use, chest wall tenderness, crackles, prolonged expiratory phas, rhonchi, tachypnea, wheezes Cardiovascular exam: PRESENT: irregular rhythm, +S1, +S2, systolic murmur Pulses: PRESENT: normal carotid pulses Vascular exam: PRESENT: normal capillary refill GI/Abdominal exam: PRESENT: normal bowel sounds, soft, other - Pendulous abdominal pannus. ABSENT: distended, guarding, rebound, tenderness Extremities exam: PRESENT: pedal edema - Trace. ABSENT: clubbing Musculoskeletal exam: PRESENT: normal inspection. ABSENT: deformity Neurological exam: PRESENT: awake, oriented to person, oriented to place, oriented to situation Psychiatric exam: PRESENT: flat affect Skin exam: PRESENT: dry, warm Results Laboratory Results: 03/16/20 07:30 03/16/20 07:30 03/15/20 03/15/20 03/15/20 14:20 17:01 23:50 WBC RBC Hgb Hct MCV MCH MCHC RDW Plt Count Carbonic Acid 2.30 H 2.35 H HCO3/H2CO3 Ratio 10:1 10:1 ABG pH 7.12 L* 7.10 L* ABG pCO2 76.3 H* 78.2 H* ABG pO2 64.5 L 90.3 ABG HCO3 24.2 H 23.8 ABG O2 Saturation 83.9 L 93.1 L ABG Base Excess -5.4 -6.9 FiO2 30% 40% Sodium 135.9 L Potassium 5.5 H Chloride 101 Carbon Dioxide 27 Anion Gap 8 BUN 94 H Creatinine 5.62 H Est GFR ( Amer) 12 L Glucose 115 H Calcium 8.9 Total Bilirubin 0.4 AST 42 Alkaline Phosphatase 55 Total Protein 6.0 L Albumin 3.1 L 03/15/20 03/16/20 03/16/20 23:50 01:20 03:03 WBC RBC Hgb Hct MCV MCH MCHC RDW Plt Count Carbonic Acid 2.53 H 2.00 H HCO3/H2CO3 Ratio 9:1 10:1 ABG pH 7.09 L* 7.11 L* ABG pCO2 83.9 H* 66.3 H ABG pO2 95.5 91.7 ABG HCO3 24.8 H 20.7 ABG O2 Saturation 93.8 L 93.8 L ABG Base Excess -6.0 -9.2 FiO2 40% 40% Sodium 136.4 L Potassium 6.1 H* Chloride 102 Carbon Dioxide 25 Anion Gap 9 BUN 98 H Creatinine 6.06 H Est GFR ( Amer) 11 L Glucose 130 H Calcium 8.4 Total Bilirubin AST Alkaline Phosphatase Total Protein Albumin 03/16/20 03/16/20 07:30 07:30 WBC 10.6 H RBC 3.02 L Hgb 9.0 L Hct 27.8 L MCV 92 MCH 29.9 MCHC 32.5 RDW 15.0 H Plt Count 230 Carbonic Acid HCO3/H2CO3 Ratio ABG pH ABG pCO2 ABG pO2 ABG HCO3 ABG O2 Saturation ABG Base Excess FiO2 Sodium 136.5 L Potassium 6.3 H* Chloride 102 Carbon Dioxide 22 Anion Gap 13 BUN 102 H Creatinine 6.14 H Est GFR ( Amer) 11 L Glucose 140 H Calcium 8.1 L Total Bilirubin AST Alkaline Phosphatase Total Protein Albumin 03/13/20 08:39 Troponin I 0.075 NT-Pro-B Natriuret Pep 7080 H Impressions: Knee X-Ray 03/12/20 23:44 IMPRESSION: Osteopenia with advanced degenerative change copyright 2011 [employer]- All Rights Reserved Chest X-Ray 03/15/20 00:00 IMPRESSION: 1. Interval placement of a right-sided central line with the tip overlying the right atrium. 2. Cardiomegaly. Mild vascular congestion. Assessment and Plan - Diagnosis (1) Atrial fibrillation Qualifiers: Atrial fibrillation type: unspecified Qualified Code(s): I48.91 - Unspecified atrial fibrillation Is this a current diagnosis for this admission?: Yes Plan: Rate is controlled, continue beta-hugh. We will have to consider anticoagulation after assessing his fall risk. (2) Degenerative arthritis of knee, bilateral Qualifiers: Osteoarthritis type: unspecified Qualified Code(s): M17.0 - Bilateral primary osteoarthritis of knee Is this a current diagnosis for this admission?: Yes Plan: Will order PT evaluation. He was not excited about the idea of doing physical therapy. (3) Fall Qualifiers: Encounter type: initial encounter Qualified Code(s): W19.XXXA - Unspecified fall, initial encounter Is this a current diagnosis for this admission?: Yes Plan: PT evaluation pending (4) Hyperkalemia Is this a current diagnosis for this admission?: Yes Plan: Potassium was elevated again this morning. Were planning on dialysis today and so this should be accounted for. (5) Acute on chronic diastolic (congestive) heart failure Is this a current diagnosis for this admission?: Yes Plan: He will need medical optimization. He does not appear to be in acute failure at this time. Diuretics held because of blood pressure and renal function. He only got 2 doses of Lasix. Echocardiogram shows a preserved ejection fraction, some mild pulmonary hypertension and mild aortic stenosis. (6) Acute on chronic respiratory failure with hypoxemia Is this a current diagnosis for this admission?: Yes Plan: Oxygen saturations were good, now on BiPAP due to hypercapnia (7) Morbid obesity with BMI of 40.0-44.9, adult Is this a current diagnosis for this admission?: Yes Plan: Strongly encourage lifestyle modification with weight loss of this will help numerous of his medical issues, including his knee pain from arthritis (8) Anemia in chronic kidney disease (CKD) Qualifiers: Chronic kidney disease stage: stage 3 (moderate) Qualified Code(s): N18.3 - Chronic kidney disease, stage 3 (moderate); D63.1 - Anemia in chronic kidney disease Is this a current diagnosis for this admission?: Yes Plan: Have started fluids because he appears to have worsening renal failure, possibly from prerenal azotemia on top of his chronic kidney disease (9) Coronary artery disease Qualifiers: Coronary Disease-Associated Artery/Lesion type: [place] artery [place] vs. transplanted heart: [place] heart Is this a current diagnosis for this admission?: Yes Plan: We will continue home medication regimen (10) Hypertensive urgency Is this a current diagnosis for this admission?: Yes Plan: Blood pressures have improved after resuming his home medications. They are on hold for now because of hypotension. (11) Pulmonary hypertension Is this a current diagnosis for this admission?: Yes Plan: Mild pulmonary hypertension on echocardiogram right ventricular systolic pressure was 30 to 40 mmHg (12) Chronic kidney disease (CKD) stage G3b/A1, moderately decreased glomerular filtration rate (GFR) between 30-44 mL/min/1.73 square meter and albuminuria creatinine ratio less than 30 mg/g Is this a current diagnosis for this admission?: Yes Plan: Creatinine worsened from yesterday, Lasix is on hold. Now getting fluids. (13) Acute kidney injury superimposed on chronic kidney disease Is this a current diagnosis for this admission?: Yes Plan: Fluids initiated, Dr. Lundberg consulted, Trialysis catheter to be placed with dialysis today (14) Acute hypercapnic respiratory failure Is this a current diagnosis for this admission?: Yes Plan: Patient's CODE STATUS was changed last night to DNR/DNI. His CO2 did improve somewhat with adjustments to his BiPAP settings, but his pH has not really improved. Interestingly, his bicarbonate has not dropped. (15) Hypotension Qualifiers: Hypotension type: hypotension due to hypovolemia Qualified Code(s): I95.89 - Other hypotension; E86.1 - Hypovolemia Is this a current diagnosis for this admission?: Yes Plan: Responded well to IVF and dopamine. Still no UOP. - Time Time Spent with patient: 25-34 minutes
[2020-03-16] MEDS: NYSTATIN TOPICAL POWDER 15 GM TP SCH (21:08)
[2020-03-16] MEDS: ATORVASTATIN CALCIUM 40 MG TABLET PO SCH (21:10)
[2020-03-16] MEDS: TRAMADOL HCL 50 MG TABLET PO PRN (22:28)
--- NOTE | 2020-03-16 22:28 | PDOC CONSULTATION ---
Consultation Consult Date: 03/16/20 Provider Consulted: BERNARDINO JULES Consult reason:: SWATHI/CKD, Hyperkalemia History of Present Illness Admission Date/PCP: 03/13/20 12:03 RADHA RAND History of Present Illness: YOLANDA BURNETT JR is a 80 year old gentleman with history of chronic kidney disease baseline stage IV whom I have seen last about a year ago, hypertension, small left kidney, diastolic congestive heart failure, coronary artery disease, peripheral vascular disease, hyperlipidemia and pulmonary hypertension who was admitted on 03/13/2020 after a fall from home. Initial evaluation did not show any acute fractures but he is complaining of pain in both of his knees and around it. On presentation he also complained of some shortness of breath and was found to be hypoxemic. He was found to have a new onset atrial fibrillation. His chest x-ray shows findings suggestive of congestive heart failure. He was also hypertensive when he came in. He was then started on Lasix 40 mg IV every 12 hours which he had received only 2 doses. His blood pressure medications were restarted. Patient also presented with some hyperkalemia initially with potassium of 5.7. After 2 doses of Lasix the patient's breathing has improved. However his kidney function started to get worse. On admission he had a BUN of 65 and creatinine of 2.87. From my records on July 03, 2018 he had a BUN of 64 and creatinine of 2.16. The next couple of days, the patient's clinical condition has worsened including his kidney function which continues to get worse. His blood pressure also went down as low as 81/24 yesterday. The Lasix was discontinued after only 2 doses. He was started on IV fluids. Due to persistent hypotension he was started on dopamine drip and was also started on hydrocortisone IV every 8 hours. His cortisol level though is 37.4. His urine output has not been very good and he has been oliguric with output anywhere between 200-300 mL/day only for the last couple of days.. He is now positive fluid balance of 4 L. Today his kidney function include a BUN of 102, creatinine of 6.14 with EGFR of 9. His potassium is 6.3. His breathing is also deteriorated with an ABG today with a pH of 7.11, PCO2 of 66.3, PO2 of 91.7 and bicarbonate of 20.7. Patient was placed on BiPAP. When I saw the patient today the patient tells me that he is feeling okay with the Bi PAP. He actually denies any other complaints of chest pains, nausea nor vomiting. Due to worsening kidney function, hyperkalemia and oliguria I talked with the patient regarding doing dialysis treatment today. I explained to him the the procedure, benefits and risk of doing dialysis and catheter placement including infection, bleeding, arrhythmia, and even cardiac arrest. Patient agreed to proceed. I also called his son Mr. Sher Burnett and updated him regarding the patient's condition and my recommendation for dialysis and he also approve of it. I then consulted our surgeon, Dr. Rosas to put the temporary trialysis catheter which she did. At around 2:20 PM, I am seeing the patient in the ICU during his first dialysis treatment. His blood pressure is still a little bit on the low side. He is awake. By the time I saw him he is being tried on just on nasal cannula without the BiPAP and see if he tolerates it while on dialysis while in the ICU. Patient is being monitored closely. Past Medical History Cardiac Medical History: Reports: CHF-Diastolic, Coronary Artery Disease, Hyperlipidemia, Hypertension-primary, Myocardial Infarction, Peripheral Vascular Disease, Pulmonary Hypertension EENT Medical History: Reports: Other - Hearing loss Endocrine Medical History: Reports: Obesity Renal/ Medical History: Reports: Chronic Kidney Disease Stage IV, Secondary H yperparathyroidism GI Medical History: Reports: Other - Colon polyps Musculoskeltal Medical History: Reports: Arthritis, Gout Hematology Medical History: Reports Anemia of Chronic Kidney Disease, Reports Iron Deficiency Anemia Past Surgical History Past Surgical History: Reports: Appendectomy, Coronary Artery Bypass Graft, Coronary Stent - x2 in 2009, Other - Colon polypectomy Social History Information Source: Patient Lives with: Family Smoking Status: Never Smoker Electronic Cigarette use?: No Frequency of Alcohol Use: None Hx Recreational Drug Use: No Drugs: None Hx Prescription Drug Abuse: No - Advance Directive Resuscitation Status: Do Not Resuscitate Family History Family History: CAD - Mother, CVA - Father Parental Family History Reviewed: Yes Children Family History Reviewed: Yes Sibling(s) Family History Reviewed.: Yes Medication/Allergy Home Medications: Clopidogrel Bisulfate [Plavix 75 mg Tablet] 75 mg PO DAILY 09/25/12 Lisinopril [Prinivil 20 mg Tablet] 20 mg PO DAILY 09/25/12 Carvedilol [Coreg 12.5 mg Tablet] 25 mg PO Q12 #0 tablet 10/05/12 Hydralazine HCl [Apresoline 25 mg Tablet] 25 mg PO Q8 #90 tablet 08/06/16 Torsemide [Demadex 20 mg Tablet] 20 mg PO DAILY #30 tablet 08/06/16 Calcitriol [Rocaltrol 0.25 mcg Capsule] 0.25 mcg PO DAILY 03/13/20 Cholecalciferol (Vitamin D3) [Vitamin D3 1000 Unit Tablet] 5,000 unit PO DAILY 03/13/20 Febuxostat [Uloric 40 mg Tablet] 40 mg PO DAILY 03/13/20 Rosuvastatin Calcium [Crestor] 20 mg PO DAILY 03/13/20 Allergies/Adverse Reactions: Sulfa (Sulfonamide Antibiotics) Allergy (Verified 03/13/20 10:42) Review of Systems All systems: reviewed and no additional remarkable complaints except as stated Review of Systems: Constitutional: ABSENT: chills, fatigue, fever(s), headache(s), weight loss; positive weight gain Eyes: ABSENT: visual disturbances Ears: ABSENT: hearing changes Cardiovascular: ABSENT: chest pain, dyspnea on exertion, edema, orthropnea, palpitations Respiratory: ABSENT: cough, hemoptysis; admits shortness of breath Gastrointestinal: ABSENT: abdominal pain, constipation, diarrhea, hematemesis, hematochezia, nausea, vomiting Genitourinary: ABSENT: dysuria, hematuria Musculoskeletal: ABSENT: joint swelling; admits bilateral knee pain Integumentary: ABSENT: rash, wounds Neurological: ABSENT: abnormal gait, abnormal speech, confusion, dizziness, focal weakness, numbness, syncope Psychiatric: ABSENT: anxiety, depression Endocrine: ABSENT: cold intolerance, heat intolerance, polydipsia, polyuria Hematologic/Lymphatic: ABSENT: easy bleeding, easy bruising, lymphadenopathy Physical Exam Vital Signs: Temp Pulse Resp BP Pulse Ox 97.5 F 86 21 H 131/66 H 99 03/16/20 09:25 03/16/20 09:25 03/16/20 09:25 03/16/20 09:25 03/16/20 09:25 Intake & Output 03/15/20 03/16/20 03/17/20 06:59 06:59 06:59 Intake Total 695 4370 Output Total 275 50 Balance 420 4320 Weight 154.6 kg Vitals during dialysis: Blood pressure of 87/67, heart rate of 93, respiration of 17, blood flow rate of 250 mL/min and dialysate flow rate of 600 mL/min. Exam: General appearance: Initially on BiPAP and comfortable and subsequently switched to nasal cannula cooperative, well-developed, well-nourished, morbidly obese Head exam: PRESENT: atraumatic, normocephalic Eye exam: PRESENT: Conjunctiva pale, EOMI, PERRLA. ABSENT: conjunctival injection, scleral icterus Mouth exam: PRESENT: moist, neck supple, tongue midline Neck exam: PRESENT: full ROM. ABSENT: carotid bruit, JVD, lymphadenopathy, thyromegaly Respiratory exam: PRESENT: Diminished to auscultation bilaterally. ABSENT: rales, rhonchi, stridor, wheezes Cardiovascular exam: PRESENT: Irregularly irregular, +S1, +S2. ABSENT: systolic murmur Pulses: PRESENT: normal radial pulses, normal dorsalis pedis pulses GI/Abdominal exam: PRESENT: normal bowel sounds, soft. Obese ABSENT: guarding, mass, tenderness Rectal exam: Deferred Extremities exam: [PRESENT: full ROM. Trace upper extremity edema and grade 1 bilateral lower extremity edema ABSENT: calf tenderness Musculoskeletal: PRESENT: full ROM. ABSENT: deformity Neurological exam: PRESENT: alert, Awake, Oriented to person, Oriented to place, Oriented to time, reflexes normal, CN II-XII grossly intact. ABSENT: motor sensory deficit Psychiatric exam: PRESENT: appropriate affect, normal mood. ABSENT: homicidal ideation, suicidal ideation Skin exam: PRESENT: intact, dry, warm. ABSENT: rash Results Laboratory Results: 03/16/20 07:30 03/16/20 07:30 03/15/20 03/15/20 03/15/20 10:43 14:20 17:01 WBC RBC Hgb Hct MCV MCH MCHC RDW Plt Count Carbonic Acid 2.29 H 2.30 H HCO3/H2CO3 Ratio 12:1 10:1 ABG pH 7.18 L* 7.12 L* ABG pCO2 76.2 H* 76.3 H* ABG pO2 76.0 L 64.5 L ABG HCO3 27.6 H 24.2 H ABG O2 Saturation 90.9 L 83.9 L ABG Base Excess -1.5 -5.4 FiO2 1.5L 30% Sodium 135.9 L Potassium 5.5 H Chloride 101 Carbon Dioxide 27 Anion Gap 8 BUN 94 H Creatinine 5.62 H Est GFR ( Amer) 12 L Glucose 115 H Calcium 8.9 Total Bilirubin 0.4 AST 42 Alkaline Phosphatase 55 Total Protein 6.0 L Albumin 3.1 L 03/15/20 03/15/20 03/16/20 23:50 23:50 01:20 WBC RBC Hgb Hct MCV MCH MCHC RDW Plt Count Carbonic Acid 2.35 H 2.53 H HCO3/H2CO3 Ratio 10:1 9:1 ABG pH 7.10 L* 7.09 L* ABG pCO2 78.2 H* 83.9 H* ABG pO2 90.3 95.5 ABG HCO3 23.8 24.8 H ABG O2 Saturation 93.1 L 93.8 L ABG Base Excess -6.9 -6.0 FiO2 40% 40% Sodium 136.4 L Potassium 6.1 H* Chloride 102 Carbon Dioxide 25 Anion Gap 9 BUN 98 H Creatinine 6.06 H Est GFR ( Amer) 11 L Glucose 130 H Calcium 8.4 Total Bilirubin AST Alkaline Phosphatase Total Protein Albumin 03/16/20 03/16/20 03/16/20 03:03 07:30 07:30 WBC 10.6 H RBC 3.02 L Hgb 9.0 L Hct 27.8 L MCV 92 MCH 29.9 MCHC 32.5 RDW 15.0 H Plt Count 230 Carbonic Acid 2.00 H HCO3/H2CO3 Ratio 10:1 ABG pH 7.11 L* ABG pCO2 66.3 H ABG pO2 91.7 ABG HCO3 20.7 ABG O2 Saturation 93.8 L ABG Base Excess -9.2 FiO2 40% Sodium 136.5 L Potassium 6.3 H* Chloride 102 Carbon Dioxide 22 Anion Gap 13 BUN 102 H Creatinine 6.14 H Est GFR ( Amer) 11 L Glucose 140 H Calcium 8.1 L Total Bilirubin AST Alkaline Phosphatase Total Protein Albumin 03/13/20 08:39 Troponin I 0.075 NT-Pro-B Natriuret Pep 7080 H Impressions: Knee X-Ray 03/12/20 23:44 IMPRESSION: Osteopenia with advanced degenerative change copyright 2011 [employer]- All Rights Reserved Chest X-Ray 03/15/20 00:00 IMPRESSION: 1. Interval placement of a right-sided central line with the tip overlying the right atrium. 2. Cardiomegaly. Mild vascular congestion. Assessment & Plan - Diagnosis (1) Acute kidney injury superimposed on chronic kidney disease Is this a current diagnosis for this admission?: Yes Plan: The patient has worsening kidney function for the last few days associated with oliguria and hyperkalemia. He has baseline chronic kidney disease stage IV secondary to hypertensive nephrosclerosis with known small left kidney measuring 7.9 cm in the past. Acute worsening of the kidney function could be related to hemodynamic changes with the abrupt decline of the blood pressure from initial high blood pressure on admission to very low blood pressure causing possible ATN. Above conditions warrant initiation of acute renal replacement therapy. As a stated above I have discussed doing dialysis including its benefits and risks with the patient and his son Sher Burnett and both of them have agreed to proceed. I consulted Dr. Rosas to place a trialysis catheter today. We will do dialysis today for 2.5 hours, using the patient's dialysis catheter, with 2 potassium bath, blood flow rate of 250 mL per minute, dialysate flow rate of 600 mL per minute, ultrafiltration 1 L as tolerated, no heparin and and no Retacrit. Dialysis orders discussed with her dialysis nurse. Patient will be closely monitored throughout dialysis treatment. After today's dialysis we will reevaluate the patient daily for further need of acute renal replacement therapy. Recommend to maintain a consistent adequate blood pressure and avoid drastic fluctuations of blood pressure. (2) Acute hypercapnic respiratory failure Is this a current diagnosis for this admission?: Yes Plan: Patient has acute respiratory acidosis. Needs to rule out an underlying COPD. Defer to hospitalist. (3) Atrial fibrillation Qualifiers: Atrial fibrillation type: unspecified Qualified Code(s): I48.91 - Unspecified atrial fibrillation Is this a current diagnosis for this admission?: Yes Plan: New onset and currently rate controlled. (4) Hyperkalemia Is this a current diagnosis for this admission?: Yes Plan: Dialysis today as above. (5) Hypotension Qualifiers: Hypotension type: hypotension due to hypovolemia Qualified Code(s): I95.89 - Other hypotension; E86.1 - Hypovolemia Is this a current diagnosis for this admission?: Yes Plan: Random cortisol was normal. Wondering if the patient has not been taking his home blood pressure medications correctly so when it was reinitiated here in the hospital it dropped his blood pressure way too low. Medications needs to be adjusted while here in the hospital. (6) Acute on chronic diastolic (congestive) heart failure Is this a current diagnosis for this admission?: Yes Plan: Echocardiogram on 626 showed LVEF of 60 to 65% with mild pulmonary hypertension. (7) Anemia in chronic kidney disease (CKD) Qualifiers: Chronic kidney disease stage: stage 3 (moderate) Qualified Code(s): N18.3 - Chronic kidney disease, stage 3 (moderate); D63.1 - Anemia in chronic kidney disease Is this a current diagnosis for this admission?: Yes Plan: We will monitor for now. If persistently below 10 we will initiate Retacrit. We will also check iron panel. (8) Pulmonary hypertension Is this a current diagnosis for this admission?: Yes (9) Fall Qualifiers: Encounter type: initial encounter Qualified Code(s): W19.XXXA - Unspecified fall, initial encounter Is this a current diagnosis for this admission?: Yes Plan: No acute fractures. - Notes Notes: Thank you very much for this consultation. Discussed with Dr. Dasilva. - Time Time Spent: Greater than 70 Minutes
[2020-03-17] MEDS: NORMAL SALINE 1000 ML 1,000 ML IV PRN ×2 (02:47→10:46)
[2020-03-17] MEDS: DOPAMINE HCL/DEXTROSE 5%-WATER 800 MG/250 ML RTUINJ IV PRN ×2 (02:47→10:57)
[2020-03-17] MEDS: HYDROCORTISONE SOD SUCCINATE INJ/PF 100 MG/2 ML SDV IV SCH ×3 (05:17→21:47)
[2020-03-17] MEDS: HEPARIN SOD (PORCINE) 5,000 UNIT/ML 1 ML VIAL SUBCUT SCH ×3 (05:18→21:48)
[2020-03-17 05:51] LABS: ABSOLUTE LYMPHOCYTES (AUTO) 0.5 10^3/uL (0.5-4.7); ABSOLUTE MONOCYTES (AUTO) 0.6 10^3/uL (0.1-1.4); ABSOLUTE NEUT (AUTO) 7.6 10^3/uL (1.7-8.2); ABSOLUTE RETICS # 0.071 10^6/uL (0.028-0.122); HEMATOCRIT 25.1 % (37.9-51.0); HEMOGLOBIN 8.4 g/dL (13.5-17.0); LYMPHOCYTES % (AUTO) 5.9 % (13-45); MEAN CORPUSCULAR HEMOGLOBIN 30.2 pg (27.0-33.4); MEAN CORPUSCULAR HGB CONC 33.4 g/dL (32.0-36.0); MEAN CORPUSCULAR VOLUME 91 fl (80-97); MONOCYTES % (AUTO) 6.5 % (3-13); PLATELET COUNT 209 10^3/uL (150-450); RED BLOOD COUNT 2.78 10^6/uL (4.35-5.55); RED CELL DISTRIBUTION WIDTH 14.8 % (11.5-14.0); RETICULOCYTE COUNT (AUTO) 2.55 % (0.66-2.85); SEGMENTED NEUTROPHILS % (AUTO) 87.6 % (42-78); TOTAL CELLS COUNTED % (AUTO) 100 %; WHITE BLOOD COUNT 8.7 10^3/uL (4.0-10.5)
[2020-03-17 06:08] LABS: ANION GAP 10 (5-19); BLOOD UREA NITROGEN 84 mg/dL (7-20); CALCIUM 7.3 mg/dL (8.4-10.2); CARBON DIOXIDE 24 mmol/L (22-30); CHLORIDE 102 mmol/L (98-107); GLUCOSE 154 mg/dL (75-110); IRON(TIBC) 24.9 ug/dL (49-181); PHOSPHORUS 5.8 mg/dL (2.5-4.5)
[2020-03-17 06:37] LABS: HEPATITS B SURFACE ANTIGEN Negative (Negative)
[2020-03-17 06:40] LABS: POTASSIUM 5.3 mmol/L (3.6-5.0)
[2020-03-17 07:01] LABS: HEPATITIS B CORE AB TOT Negative (Negative)
[2020-03-17 07:12] LABS: FOLATE 9.25 ng/mL (>2.76)
[2020-03-17 09:05] LABS: ARTERIAL BLOOD BASE EXCESS -1.9 mmol/L; ARTERIAL BLOOD H2CO3 1.63 mmol/L (1.05-1.35); ARTERIAL BLOOD HCO3 24.6 mmol/L (20-24); ARTERIAL BLOOD O2 SATURATION 95.5 % (94-98); ARTERIAL BLOOD PCO2 54.3 mmHg (35-45); ARTERIAL BLOOD PH 7.27 (7.35-7.45); ARTERIAL BLOOD PO2 88.4 mmHg (80-100); ARTERIAL BLOOD TOTAL CO2 26.3 mmol/L (23-27)
[2020-03-17 09:08] LABS: ARTERIAL BLOOD FIO2 3.5L
[2020-03-17] MEDS ORDERED: FERRIC CARBOXYMALTOSE INJ 750 MG/15 ML VIAL IV ONE (10:00)
--- NOTE | 2020-03-17 10:12 | RADIOLOGY REPORT (SQ) ---
EXAM DESCRIPTION: U/S RETROPERITON (RENAL/AORTA) IMAGES COMPLETED DATE/TIME: 03/17/2020 6:15 am REASON FOR STUDY: acute on chronic kidney injury COMPARISON: 08/04/2016 TECHNIQUE: Dynamic and static grayscale images acquired of the kidneys and bladder and recorded on P ACS. Additional selected color Doppler and spectral images recorded. LIMITATIONS: Body habitus and overlying bowel gas. FINDINGS: RIGHT KIDNEY: Approximately 11.5 cm. No obvious pathology. LEFT KIDNEY: Approximately 9 cm. No obvious acute pathology. BLADDER: Not visualized. OTHER FINDINGS: No other significant finding. IMPRESSION: Limited study. No obvious hydronephrosis. TECHNICAL DOCUMENTATION: JOB ID: [id number] 2010 [employer]- All Rights Reserved Reading location - IP/workstation name: [email or web address]
[2020-03-17] MEDS: CARVEDILOL 12.5 MG TABLET PO SCH ×2 (10:35→21:48)
[2020-03-17] MEDS: CALCITRIOL 0.25 MCG CAPSULE PO SCH (10:43)
[2020-03-17] MEDS: NYSTATIN TOPICAL POWDER 15 GM TP SCH ×2 (10:43→17:46)
[2020-03-17] MEDS: FEBUXOSTAT 40 MG TABLET PO SCH (10:43)
[2020-03-17] MEDS: CLOPIDOGREL BISULFATE 75 MG TABLET PO SCH (10:43)
[2020-03-17] MEDS ORDERED: FERRIC CARBOXYMALTOSE 750 MG in NORMAL SALINE 100 ML IV ONE (11:30)
--- NOTE | 2020-03-17 12:22 | PDOC PROGRESS REPORT ---
Subjective Progress Note for:: 03/17/20 Subjective:: Patient underwent his first hemodialysis yesterday. He was reportedly a little bit confused after dialysis. He is now off the BiPAP and is currently on nasal cannula and has been holding. Patient denies any shortness of breath and tells me he feels great. He is eating and does not have any new complaints today. He is a starting to make significant amount of urine output since after the dialysis. He has at least 500 mL his Matt bag this morning when I came in. Reason For Visit: ACUTE HYPOXIC RESPIRATORY FAILURE, ACUTE CHF, HYPE Physical Exam Vital Signs: Temp Pulse Resp BP Pulse Ox 98.2 F 85 16 130/57 H 96 03/17/20 08:38 03/17/20 08:38 03/17/20 08:38 03/17/20 08:38 03/17/20 08:38 Intake & Output 03/16/20 03/17/20 03/18/20 06:59 06:59 06:59 Intake Total 4370 3295 Output Total 50 1400 Balance 4320 1895 Weight 154.6 kg 154.6 kg Exam: General appearance: PRESENT: no acute distress, cooperative, well-developed, well-nourished Head exam: PRESENT: atraumatic, normocephalic Eye exam: PRESENT: conjunctiva pale, PERRLA. ABSENT: scleral icterus Neck exam: ABSENT: JVD Respiratory exam: PRESENT: Diminished breath sounds. ABSENT: crackles, rales, rhonchi, unlabored, wheezes Cardiovascular exam: PRESENT: Irregularly irregular rate rhythm -+S1, +S2. ABSENT: diastolic murmur, systolic murmur GI/Abdominal exam: PRESENT: normal bowel sounds, soft. ABSENT: guarding, mass, tenderness Extremities exam: Grade 2 bilateral lower extremity pitting edema Neurological exam: PRESENT: alert, awake, oriented to person, place and time. Skin exam: PRESENT: dry, warm, Results Laboratory Results: 03/17/20 05:30 03/17/20 05:30 03/17/20 03/17/20 03/17/20 05:30 05:30 05:30 WBC 8.7 RBC 2.78 L Hgb 8.4 L Hct 25.1 L MCV 91 MCH 30.2 MCHC 33.4 RDW 14.8 H Plt Count 209 Seg Neutrophils % 87.6 H Retic Count (auto) 2.55 Carbonic Acid HCO3/H2CO3 Ratio ABG pH ABG pCO2 ABG pO2 ABG HCO3 ABG O2 Saturation ABG Base Excess FiO2 Sodium 135.5 L Potassium 5.3 H D Chloride 102 Carbon Dioxide 24 Anion Gap 10 BUN 84 H Creatinine 4.87 H Est GFR ( Amer) 14 L Glucose 154 H Calcium 7.3 L Phosphorus 5.8 H Iron 24.9 L TIBC 243 L % Saturation 10 Transferrin Ferritin 117.00 Vitamin B12 734.0 Folate 9.25 PTH Intact 430.9 H 03/17/20 03/17/20 05:30 08:25 WBC RBC Hgb Hct MCV MCH MCHC RDW Plt Count Seg Neutrophils % Retic Count (auto) Carbonic Acid 1.63 H HCO3/H2CO3 Ratio 15:1 ABG pH 7.27 L ABG pCO2 54.3 H ABG pO2 88.4 ABG HCO3 24.6 H ABG O2 Saturation 95.5 ABG Base Excess -1.9 FiO2 3.5L Sodium Potassium Chloride Carbon Dioxide Anion Gap BUN Creatinine Est GFR ( Amer) Glucose Calcium Phosphorus Iron TIBC % Saturation Transferrin 169.61 L Ferritin Vitamin B12 Folate PTH Intact 03/13/20 08:39 Troponin I 0.075 NT-Pro-B Natriuret Pep 7080 H Impressions: Knee X-Ray 03/12/20 23:44 IMPRESSION: Osteopenia with advanced degenerative change copyright 2011 [employer]- All Rights Reserved Chest X-Ray 03/15/20 00:00 IMPRESSION: 1. Interval placement of a right-sided central line with the tip overlying the right atrium. 2. Cardiomegaly. Mild vascular congestion. Assessment & Plan - Diagnosis (1) Acute kidney injury superimposed on chronic kidney disease Is this a current diagnosis for this admission?: Yes Plan: Likely secondary to ATN due to hemodynamic fluctuations of blood pressure with initial hypotension and subsequent severe hypotension requiring dopamine drip up to this point. Patient had one hemodialysis treatment yesterday. He started making an significant amount of urine output today. Hopefully the patient's kidney function continues to improve. I will reevaluate him tomorrow morning to see if he needs any further hemodialysis treatment. (2) Acute hypercapnic respiratory failure Is this a current diagnosis for this admission?: Yes Plan: Currently off the BiPAP. His recent ABG showed a pH of 7.27, PCO2 54.3 which is improved, PO2 of 88.4, and bicarbonate of 28.6. (3) Atrial fibrillation Qualifiers: Atrial fibrillation type: unspecified Qualified Code(s): I48.91 - Unspecified atrial fibrillation Is this a current diagnosis for this admission?: Yes Plan: Defer to hospitalist. (4) Hyperkalemia Is this a current diagnosis for this admission?: Yes Plan: Still mildly elevated but much improved after dialysis treatment. Monitory. (5) Hypotension Qualifiers: Hypotension type: hypotension due to hypovolemia Qualified Code(s): I95.89 - Other hypotension; E86.1 - Hypovolemia Is this a current diagnosis for this admission?: Yes Plan: Still requiring dopamine drip, off blood pressure medications. Decrease IV fluids to 80 mL an hour. (6) Acute on chronic diastolic (congestive) heart failure Is this a current diagnosis for this admission?: Yes (7) Anemia in chronic kidney disease (CKD) Qualifiers: Chronic kidney disease stage: stage 3 (moderate) Qualified Code(s): N18.3 - Chronic kidney disease, stage 3 (moderate); D63.1 - Anemia in chronic kidney disease Is this a current diagnosis for this admission?: Yes Plan: Patient's iron is low at 24.9, T sat low at 10 with ferritin of 117. I will give him a dose of IV Injectafer today. He will probably also need Retacrit. We will also check stool for occult blood. (8) Chronic kidney disease-mineral and bone disorder Is this a current diagnosis for this admission?: Yes Plan: PTH of 130.9 with phosphorus of 5.8. Start calcitriol 0.2 mcg daily. Low phosphorus diet. (9) Pulmonary hypertension Is this a current diagnosis for this admission?: Yes (10) Fall Qualifiers: Encounter type: initial encounter Qualified Code(s): W19.XXXA - Unspecified fall, initial encounter Is this a current diagnosis for this admission?: Yes - Time Time with patient: 15-25 minutes
--- NOTE | 2020-03-17 16:56 | PDOC PROGRESS REPORT ---
Subjective Progress Note for:: 03/17/20 Subjective:: No adverse events overnight. He is improved substantially. He had dialysis yesterday. He is putting out urine through the Matt catheter now. He is on a nasal cannula. His blood pressures have improved. Reason For Visit: ACUTE HYPOXIC RESPIRATORY FAILURE, ACUTE CHF, HYPE Physical Exam Vital Signs: Temp Pulse Resp BP Pulse Ox 98.0 F 70 16 132/64 H 97 03/17/20 12:00 03/17/20 14:00 03/17/20 12:00 03/17/20 12:00 03/17/20 12:00 Intake & Output 03/16/20 03/17/20 03/18/20 06:59 06:59 06:59 Intake Total 4370 3295 207 Output Total 50 1400 Balance 4320 1895 207 Weight 154.6 kg 154.6 kg General appearance: PRESENT: no acute distress, cooperative, disheveled, morbidly obese Respiratory exam: PRESENT: clear to auscultation [place] - Diminished, symmetrical, unlabored. ABSENT: accessory muscle use, chest wall tenderness, crackles, prolonged expiratory phas, rhonchi, tachypnea, wheezes Cardiovascular exam: PRESENT: irregular rhythm, +S1, +S2, systolic murmur Pulses: PRESENT: normal carotid pulses Vascular exam: PRESENT: normal capillary refill GI/Abdominal exam: PRESENT: normal bowel sounds, soft, other - Pendulous abdominal pannus. ABSENT: distended, guarding, rebound, tenderness Extremities exam: PRESENT: pedal edema - Trace. ABSENT: clubbing Musculoskeletal exam: PRESENT: normal inspection. ABSENT: deformity Neurological exam: PRESENT: awake, oriented to person, oriented to place, oriented to situation Psychiatric exam: PRESENT: Appropriate affect, normal mood Skin exam: PRESENT: dry, warm Results Laboratory Results: 03/17/20 05:30 03/17/20 05:30 03/17/20 03/17/20 03/17/20 05:30 05:30 05:30 WBC 8.7 RBC 2.78 L Hgb 8.4 L Hct 25.1 L MCV 91 MCH 30.2 MCHC 33.4 RDW 14.8 H Plt Count 209 Seg Neutrophils % 87.6 H Retic Count (auto) 2.55 Carbonic Acid HCO3/H2CO3 Ratio ABG pH ABG pCO2 ABG pO2 ABG HCO3 ABG O2 Saturation ABG Base Excess FiO2 Sodium 135.5 L Potassium 5.3 H D Chloride 102 Carbon Dioxide 24 Anion Gap 10 BUN 84 H Creatinine 4.87 H Est GFR ( Amer) 14 L Glucose 154 H Calcium 7.3 L Phosphorus 5.8 H Iron 24.9 L TIBC 243 L % Saturation 10 Transferrin Ferritin 117.00 Vitamin B12 734.0 Folate 9.25 PTH Intact 430.9 H 03/17/20 03/17/20 05:30 08:25 WBC RBC Hgb Hct MCV MCH MCHC RDW Plt Count Seg Neutrophils % Retic Count (auto) Carbonic Acid 1.63 H HCO3/H2CO3 Ratio 15:1 ABG pH 7.27 L ABG pCO2 54.3 H ABG pO2 88.4 ABG HCO3 24.6 H ABG O2 Saturation 95.5 ABG Base Excess -1.9 FiO2 3.5L Sodium Potassium Chloride Carbon Dioxide Anion Gap BUN Creatinine Est GFR ( Amer) Glucose Calcium Phosphorus Iron TIBC % Saturation Transferrin 169.61 L Ferritin Vitamin B12 Folate PTH Intact 03/13/20 08:39 Troponin I 0.075 NT-Pro-B Natriuret Pep 7080 H Impressions: Knee X-Ray 03/12/20 23:44 IMPRESSION: Osteopenia with advanced degenerative change copyright 2011 [employer]- All Rights Reserved Chest X-Ray 03/15/20 00:00 IMPRESSION: 1. Interval placement of a right-sided central line with the tip overlying the right atrium. 2. Cardiomegaly. Mild vascular congestion. Renal Ultrasound 03/17/20 00:00 IMPRESSION: Limited study. No obvious hydronephrosis. Assessment and Plan - Diagnosis (1) Atrial fibrillation Qualifiers: Atrial fibrillation type: unspecified Qualified Code(s): I48.91 - Unspecified atrial fibrillation Is this a current diagnosis for this admission?: Yes Plan: Rate is controlled, continue beta-hugh. We will have to consider anticoagulation after assessing his fall risk. (2) Degenerative arthritis of knee, bilateral Qualifiers: Osteoarthritis type: unspecified Qualified Code(s): M17.0 - Bilateral primary osteoarthritis of knee Is this a current diagnosis for this admission?: Yes Plan: Will order PT evaluation. He was not excited about the idea of doing physical therapy. (3) Fall Qualifiers: Encounter type: initial encounter Qualified Code(s): W19.XXXA - Unspecified fall, initial encounter Is this a current diagnosis for this admission?: Yes Plan: PT evaluation pending more clinical improvement (4) Hyperkalemia Is this a current diagnosis for this admission?: Yes Plan: Improved after hemodialysis (5) Acute on chronic diastolic (congestive) heart failure Is this a current diagnosis for this admission?: Yes Plan: He will need medical optimization. He does not appear to be in acute failure at this time. Diuretics held because of blood pressure and renal function. He only got 2 doses of Lasix. Echocardiogram shows a preserved ejection fraction, some mild pulmonary hypertension and mild aortic stenosis. (6) Acute on chronic respiratory failure with hypoxemia Is this a current diagnosis for this admission?: Yes Plan: Oxygen saturations were good, now on 4 L per nasal cannula (7) Morbid obesity with BMI of 40.0-44.9, adult Is this a current diagnosis for this admission?: Yes Plan: Strongly encourage lifestyle modification with weight loss of this will help numerous of his medical issues, including his knee pain from arthritis (8) Anemia in chronic kidney disease (CKD) Qualifiers: Chronic kidney disease stage: stage 3 (moderate) Qualified Code(s): N18.3 - Chronic kidney disease, stage 3 (moderate); D63.1 - Anemia in chronic kidney disease Is this a current diagnosis for this admission?: Yes Plan: Hemoglobin stable, continue to monitor (9) Coronary artery disease Qualifiers: Coronary Disease-Associated Artery/Lesion type: [place] artery [place] vs. transplanted heart: [place] heart Is this a current diagnosis for this admission?: Yes Plan: We will continue home medication regimen (10) Hypertensive urgency Is this a current diagnosis for this admission?: Yes Plan: Blood pressures have improved after resuming his home medications. They are on hold for now because of hypotension. (11) Pulmonary hypertension Is this a current diagnosis for this admission?: Yes Plan: Mild pulmonary hypertension on echocardiogram right ventricular systolic pressure was 30 to 40 mmHg (12) Chronic kidney disease (CKD) stage G3b/A1, moderately decreased glomerular filtration rate (GFR) between 30-44 mL/min/1.73 square meter and albuminuria creatinine ratio less than 30 mg/g Is this a current diagnosis for this admission?: Yes Plan: He is received hemodialysis once, creatinine has improved, urine output increasing, nephrology is following (13) Acute kidney injury superimposed on chronic kidney disease Is this a current diagnosis for this admission?: Yes Plan: His creatinine has improved after dialysis and he starting to put out some urine now. Nephrology is following to see if he will need further dialysis treatments. (14) Acute hypercapnic respiratory failure Is this a current diagnosis for this admission?: Yes Plan: Resolved after BiPAP. Will keep BiPAP on standby in case starts to show signs of CO2 retention again. (15) Hypotension Qualifiers: Hypotension type: hypotension due to hypovolemia Qualified Code(s): I95.89 - Other hypotension; E86.1 - Hypovolemia Is this a current diagnosis for this admission?: Yes Plan: We have had him on some fluids and a dopamine drip. We are starting to turn down the dopamine now because his blood pressure is recovering. - Time Time Spent with patient: 25-34 minutes
[2020-03-17] MEDS: ATORVASTATIN CALCIUM 40 MG TABLET PO SCH (21:48)
[2020-03-18] MEDS: TRAMADOL HCL 50 MG TABLET PO PRN ×2 (00:12→06:00)
[2020-03-18] MEDS: NORMAL SALINE 1000 ML 1,000 ML IV PRN (00:14)
[2020-03-18] MEDS: HYDROCORTISONE SOD SUCCINATE INJ/PF 100 MG/2 ML SDV IV SCH ×3 (05:55→21:50)
[2020-03-18] MEDS: HEPARIN SOD (PORCINE) 5,000 UNIT/ML 1 ML VIAL SUBCUT SCH ×3 (05:56→21:50)
[2020-03-18 09:27] LABS: ANION GAP 8 (5-19); BLOOD UREA NITROGEN 104 mg/dL (7-20); CALCIUM 7.2 mg/dL (8.4-10.2); CARBON DIOXIDE 23 mmol/L (22-30); CHLORIDE 104 mmol/L (98-107); GLUCOSE 151 mg/dL (75-110); POTASSIUM 5.3 mmol/L (3.6-5.0)
[2020-03-18] MEDS: NYSTATIN TOPICAL POWDER 15 GM TP SCH ×2 (09:56→18:27)
[2020-03-18] MEDS: CLOPIDOGREL BISULFATE 75 MG TABLET PO SCH (09:57)
[2020-03-18] MEDS: CARVEDILOL 12.5 MG TABLET PO SCH ×2 (09:57→21:50)
[2020-03-18] MEDS: FEBUXOSTAT 40 MG TABLET PO SCH (09:57)
[2020-03-18] MEDS: CALCITRIOL 0.25 MCG CAPSULE PO SCH (09:57)
[2020-03-18] MEDS: DOPAMINE HCL/DEXTROSE 5%-WATER 800 MG/250 ML RTUINJ IV PRN (10:18)
[2020-03-18] MEDS ORDERED: EPOETIN ALFA-EPBX 20,000 UNIT in SYRINGE, DISPOSABLE, 1 EACH IV PRN (10:33)
[2020-03-18] MEDS ORDERED: HEPARIN SOD (PORCINE) 1,000 UNIT/ML 10 ML VIAL IV PRN (10:33)
[2020-03-18 11:37] LABS: HEPATITIS C QUANTITATION HCV Not Detected IU/mL (.)
--- NOTE | 2020-03-18 13:05 | PDOC PROGRESS REPORT ---
Subjective Progress Note for:: 03/18/20 Subjective:: Patient appears to be better. He denies any shortness of breath and he told me that his appetite is back. When I saw him this morning he still requiring dopamine at 5 mcg/min for blood pressure support. He started making urine and made 1250 mL of urine output for the last 24 hours. He does not really have any complaints this morning. However his BUN and creatinine are still elevated so I decided to arrange for dialysis treatment again today. Patient is agreeable. 1255 PM. I am seeing the patient during dialysis in the ICU. He remains to be calm and comfortable receiving dialysis without any issues. Reason For Visit: ACUTE HYPOXIC RESPIRATORY FAILURE, ACUTE CHF, HYPE Physical Exam Vital Signs: Temp Pulse Resp BP Pulse Ox 97.5 F 85 22 H 123/44 L 96 03/18/20 08:10 03/18/20 08:10 03/18/20 08:10 03/18/20 08:10 03/18/20 10:03 Intake & Output 03/17/20 03/18/20 03/19/20 06:59 06:59 06:59 Intake Total 3295 1607 Output Total 1400 1250 Balance 1895 357 Weight 154.6 kg 151.7 kg Vitals during dialysis: Blood pressure 116/79, heart rate of 72, respiration of 19 and oxygen saturation of 99%. His blood flow rate on dialysis is 250 mL/min with dialysate flow rate of 600 mL/min. Exam: General appearance: PRESENT: no acute distress, cooperative, well-developed, well-nourished Head exam: PRESENT: atraumatic, normocephalic Eye exam: PRESENT: conjunctiva pale, PERRLA. ABSENT: scleral icterus Neck exam: ABSENT: JVD Respiratory exam: PRESENT: Normal breath sounds. ABSENT: crackles, rales, rhonchi, unlabored, wheezes Cardiovascular exam: PRESENT: Regular rate rhythm -+S1, +S2. ABSENT: diastolic murmur, systolic murmur GI/Abdominal exam: PRESENT: normal bowel sounds, soft. ABSENT: guarding, mass, tenderness Extremities exam: Good 1-2 bilateral lower extremity pitting edema Neurological exam: PRESENT: alert, awake, oriented to person, place and time. Skin exam: PRESENT: dry, warm, Results Laboratory Results: 03/17/20 05:30 03/18/20 08:47 03/18/20 08:47 Sodium 135.3 L Potassium 5.3 H Chloride 104 Carbon Dioxide 23 Anion Gap 8 BUN 104 H Creatinine 5.25 H Est GFR ( Amer) 13 L Glucose 151 H Calcium 7.2 L 03/13/20 08:39 Troponin I 0.075 NT-Pro-B Natriuret Pep 7080 H Impressions: Knee X-Ray 03/12/20 23:44 IMPRESSION: Osteopenia with advanced degenerative change copyright 2010 [facility]- All Rights Reserved Chest X-Ray 03/15/20 00:00 IMPRESSION: 1. Interval placement of a right-sided central line with the tip overlying the right atrium. 2. Cardiomegaly. Mild vascular congestion. Renal Ultrasound 03/17/20 00:00 IMPRESSION: Limited study. No obvious hydronephrosis. Assessment & Plan - Diagnosis (1) Acute kidney injury superimposed on chronic kidney disease Is this a current diagnosis for this admission?: Yes Plan: Likely secondary to ATN due to hemodynamic fluctuations of blood pressure with initial hypotension and subsequent severe hypotension requiring dopamine drip up to this point. Patient was started on acute hemodialysis on . He started making an significant amount of urine output yesterday. His BUN and creatinine are still rising so I arranged for dialysis today. We will do dialysis today for 3 hours, using the patient's dialysis catheter, with 2 potassium bath, blood flow rate of 250 mL per minute, dialysate flow rate of 600 mL per minute, ultrafiltration 1 L as tolerated, no heparin and Procrit with 20,000 units during dialysis intravenously. Discontinue IV fluids. I will restart the patient's torsemide 20 mg daily tomorrow. (2) Acute hypercapnic respiratory failure Is this a current diagnosis for this admission?: Yes Plan: Improvement, off the BiPAP and now on nasal cannula. (3) Atrial fibrillation Qualifiers: Atrial fibrillation type: unspecified Qualified Code(s): I48.91 - Unspecified atrial fibrillation Is this a current diagnosis for this admission?: Yes Plan: Defer to hospitalist. Currently rate controlled. There is a concern for the patient falling on anticoagulation. (4) Hyperkalemia Is this a current diagnosis for this admission?: Yes Plan: Still mildly elevated but much improved after dialysis treatment. Advise low potassium diet. (5) Hypotension Qualifiers: Hypotension type: hypotension due to hypovolemia Qualified Code(s): I95.89 - Other hypotension; E86.1 - Hypovolemia Is this a current diagnosis for this admission?: Yes Plan: Still requiring dopamine drip, off blood pressure medications. Continue to wean off dopamine drip. Will discontinue fluids today. (6) Acute on chronic diastolic (congestive) heart failure Is this a current diagnosis for this admission?: Yes (7) Anemia in chronic kidney disease (CKD) Qualifiers: Chronic kidney disease stage: stage 3 (moderate) Qualified Code(s): N18.3 - Chronic kidney disease, stage 3 (moderate); D63.1 - Anemia in chronic kidney disease Is this a current diagnosis for this admission?: Yes Plan: Patient's iron is low at 24.9, T sat low at 10 with ferritin of 117. I gave him a dose of IV Injectafer yesterday, 630. I will give Retacrit on dialysis. We will also check stool for occult blood. (8) Chronic kidney disease-mineral and bone disorder Is this a current diagnosis for this admission?: Yes Plan: PTH of 130.9 with phosphorus of 5.8. Start calcitriol 0.2 mcg daily. Low phosphorus diet. (9) Pulmonary hypertension Is this a current diagnosis for this admission?: Yes (10) Fall Qualifiers: Encounter type: initial encounter Qualified Code(s): W19.XXXA - Unspecified fall, initial encounter Is this a current diagnosis for this admission?: Yes - Time Time with patient: 15-25 minutes
--- NOTE | 2020-03-18 17:36 | PDOC PROGRESS REPORT ---
Subjective Progress Note for:: 03/18/20 Subjective:: The patient had hemodialysis in the ICU earlier today. He is currently on a nasal cannula. There is somewhat confusing listening to him talk as he is trying to convey this started recent hallucinations and he does not do a good job of distinguishing reality from the hallucinations but clearly he understands that there were not hallucinations. I am not sure of the etiology. It is most likely hypercapnia at that he exhibited over the last week Reason For Visit: ACUTE HYPOXIC RESPIRATORY FAILURE, ACUTE CHF, HYPE Physical Exam Vital Signs: Temp Pulse Resp BP Pulse Ox 97.5 F 71 22 H 128/56 H 99 03/18/20 08:10 03/18/20 16:00 03/18/20 08:10 03/18/20 16:00 03/18/20 16:00 Intake & Output 03/17/20 03/18/20 03/19/20 06:59 06:59 06:59 Intake Total 3295 1607 1000 Output Total 1400 1250 2000 Balance 1895 357 -1000 Weight 154.6 kg 151.7 kg General appearance: PRESENT: cooperative, morbidly obese, well-developed Head exam: PRESENT: atraumatic, normocephalic Ear exam: PRESENT: normal external ear exam. ABSENT: bleeding, drainage Mouth exam: PRESENT: dry mucosa, tongue midline Neck exam: PRESENT: other - Large neck with significant redundant neck tissue. IJ triple-lumen catheter right side of the neck Respiratory exam: PRESENT: symmetrical, other - Coarse breath sounds bila terally. ABSENT: rales, rhonchi, tachypnea, wheezes Cardiovascular exam: PRESENT: irregular rhythm GI/Abdominal exam: PRESENT: diminished bowel sounds - Possibly difficult to auscultate due to body habitus, soft, other - Pendulous abdomen. ABSENT: tenderness Rectal exam: PRESENT: deferred Gentrourinary exam: PRESENT: indwelling catheter Neurological exam: PRESENT: alert, awake, oriented to person, oriented to place, oriented to situation, CN II-XII grossly intact Psychiatric exam: PRESENT: flat affect. ABSENT: agitated, anxious Focused psych exam: ABSENT: delusional - Did not think he was delusional but rather he was trying to convey details of hallucinations that he had previously. Skin exam: PRESENT: dry - Extremely dry scaly skin Results Laboratory Results: 03/17/20 05:30 03/18/20 08:47 03/18/20 08:47 Sodium 135.3 L Potassium 5.3 H Chloride 104 Carbon Dioxide 23 Anion Gap 8 BUN 104 H Creatinine 5.25 H Est GFR ( Amer) 13 L Glucose 151 H Calcium 7.2 L 03/13/20 08:39 Troponin I 0.075 NT-Pro-B Natriuret Pep 7080 H Impressions: Knee X-Ray 03/12/20 23:44 IMPRESSION: Osteopenia with advanced degenerative change copyright 2011 [employer]- All Rights Reserved Chest X-Ray 03/15/20 00:00 IMPRESSION: 1. Interval placement of a right-sided central line with the tip overlying the right atrium. 2. Cardiomegaly. Mild vascular congestion. Renal Ultrasound 03/17/20 00:00 IMPRESSION: Limited study. No obvious hydronephrosis. Assessment and Plan - Diagnosis (1) Hypotension Qualifiers: Hypotension type: hypotension due to hypovolemia Qualified Code(s): I95.89 - Other hypotension; E86.1 - Hypovolemia Is this a current diagnosis for this admission?: Yes Plan: We have had him on some fluids and a dopamine drip. We are starting to turn down the dopamine now because his blood pressure is recovering. March 18, 2020 The patient just returned from hemodialysis. We are trying to taper off of the dopamine drip. Blood pressures appear to be improving. Normally he is hypert ensive. Still holding some of his other antihypertensive medications. We will add back when appropriate. (2) Acute kidney injury superimposed on chronic kidney disease Is this a current diagnosis for this admission?: Yes Plan: His creatinine has improved after dialysis and he starting to put out some urine now. Nephrology is following to see if he will need further dialysis treatments. March 18, 2020 Underwent hemodialysis earlier today. 2 L were removed. The patient produced 1.2 L of urine yesterday. Continue current treatment regimen. When appropriate resume hypertension medications including diuretics. (3) Longstanding persistent atrial fibrillation Is this a current diagnosis for this admission?: Yes Plan: March 18, 2020 Continue carvedilol. Continue to monitor on telemetry. (4) Hyperkalemia Is this a current diagnosis for this admission?: Yes Plan: Improved after hemodialysis March 18, 2020 I will check serum potassium tomorrow. I believe dialysis will be removed enoug h potassium to get the patient back in the normal range. Continue to monitor electrolytes. (5) Acute on chronic diastolic (congestive) heart failure Is this a current diagnosis for this admission?: Yes Plan: He will need medical optimization. He does not appear to be in acute failure at this time. Diuretics held because of blood pressure and renal function. He only got 2 doses of Lasix. Echocardiogram shows a preserved ejection fraction, some mild pulmonary hypertension and mild aortic stenosis. March 18, 2020 Fluid management with dialysis and eventually diuretics. Defer hemodialysis treatment decisions to nephrology. (6) Acute on chronic respiratory failure with hypoxia and hypercapnia Is this a current diagnosis for this admission?: Yes Plan: March 18, 2020 Blood gas yesterday shows continued improvement in the patient's PCO2. It is below 55. He may likely be at his baseline. Wean BiPAP machine is still in his room. He is currently on nasal cannula. We will try to keep oxygen saturation around 90% to 94% (7) Morbid obesity with BMI of 45.0-49.9, adult Is this a current diagnosis for this admission?: Yes Plan: March 18, 2020 Significant comorbidity with underlying lung and heart disease. At this point weight loss is unlikely. Continue supportive strategies. (8) Anemia in chronic kidney disease (CKD) Qualifiers: Chronic kidney disease stage: stage 3 (moderate) Qualified Code(s): N18.3 - Chronic kidney disease, stage 3 (moderate); D63.1 - Anemia in chronic kidney disease Is this a current diagnosis for this admission?: Yes Plan: Hemoglobin stable, continue to monitor March 18, 2020 Iron and erythropoietin per nephrology. Continue to monitor hemoglobin. Slight dip to 8.4 today. Recheck tomorrow. (9) Coronary artery disease Qualifiers: Coronary Disease-Associated Artery/Lesion type: [place] artery [place] vs. transplanted heart: [place] heart Is this a current diagnosis for this admission?: Yes Plan: We will continue home medication regimen March 18, 2020 Juggling patient's usual medication regimen in light of blood pressure issues. No evidence of acute coronary syndrome at this time. (10) Hypertensive urgency Is this a current diagnosis for this admission?: Yes Plan: Blood pressures have improved after resuming his home medications. They are on hold for now because of hypotension. 03/18/2020 Went home medications were resumed and blood pressure began to decrease. Eventually it became tomorrow he is now on dopamine. Continue to monitor closely and adjust medications accordingly. (11) Pulmonary hypertension Is this a current diagnosis for this admission?: Yes Plan: Mild pulmonary hypertension on echocardiogram right ventricular systolic pressure was 30 to 40 mmHg 03/18/2020 Continue current management. No specific dedicated treatment for pulmonary h ypertension at this point. (12) Chronic kidney disease (CKD) stage G3b/A1, moderately decreased glomerular filtration rate (GFR) between 30-44 mL/min/1.73 square meter and albuminuria c reatinine ratio less than 30 mg/g Is this a current diagnosis for this admission?: Yes Plan: March 18, 2020 This is evidently the previous baseline for this patient. Currently requiring hemodialysis. Urine output appears to be picking up. Renal replacement therapy may be a temporary treatment. (13) Degenerative arthritis of knee, bilateral Qualifiers: Osteoarthritis type: unspecified Qualified Code(s): M17.0 - Bilateral primary osteoarthritis of knee Is this a current diagnosis for this admission?: Yes Plan: Will order PT evaluation. He was not excited about the idea of doing physical therapy. March 18, 2020 Significantly worsened by his weight. Physical therapy may be limited as well to the patient's BMI. (14) Fall Qualifiers: Encounter type: initial encounter Qualified Code(s): W19.XXXA - Unspecified fall, initial encounter Is this a current diagnosis for this admission?: Yes Plan: PT evaluation pending more clinical improvement March 18, 2020 Physical therapy to evaluate when patient is more stable. - Time Time Spent with patient: 15-24 minutes Medications reviewed and adjusted accordingly: Yes
[2020-03-18] MEDS: PANTOT AC/MIN OIL/PET HY-PHL OINT 50 GM TOP SCH (19:01)
[2020-03-18] MEDS: ATORVASTATIN CALCIUM 40 MG TABLET PO SCH (21:50)
[2020-03-19] MEDS ORDERED: BISACODYL 5 MG TABEC PO PRN (01:02)
[2020-03-19] MEDS: HYDROCORTISONE SOD SUCCINATE INJ/PF 100 MG/2 ML SDV IV SCH ×3 (06:00→22:01)
[2020-03-19] MEDS: HEPARIN SOD (PORCINE) 5,000 UNIT/ML 1 ML VIAL SUBCUT SCH ×3 (06:00→21:52)
[2020-03-19] MEDS: DOPAMINE HCL/DEXTROSE 5%-WATER 800 MG/250 ML RTUINJ IV PRN (06:14)
[2020-03-19 07:24] LABS: ANION GAP 8 (5-19); CALCIUM 7.4 mg/dL (8.4-10.2); CARBON DIOXIDE 26 mmol/L (22-30); CHLORIDE 101 mmol/L (98-107); GLUCOSE 139 mg/dL (75-110); POTASSIUM 4.9 mmol/L (3.6-5.0)
[2020-03-19 07:36] LABS: BLOOD UREA NITROGEN 81 mg/dL (7-20)
[2020-03-19] MEDS: TORSEMIDE 20 MG TABLET PO SCH (10:07)
[2020-03-19] MEDS: CLOPIDOGREL BISULFATE 75 MG TABLET PO SCH (10:07)
[2020-03-19] MEDS: NYSTATIN TOPICAL POWDER 15 GM TP SCH ×2 (10:08→17:13)
[2020-03-19] MEDS: CARVEDILOL 12.5 MG TABLET PO SCH ×2 (10:08→21:50)
[2020-03-19] MEDS: CALCITRIOL 0.25 MCG CAPSULE PO SCH (10:08)
[2020-03-19] MEDS: FEBUXOSTAT 40 MG TABLET PO SCH (10:10)
[2020-03-19] MEDS: PANTOT AC/MIN OIL/PET HY-PHL OINT 50 GM TOP SCH ×2 (10:10→17:13)
[2020-03-19 10:43] LABS: HEMATOCRIT 24.5 % (37.9-51.0); HEMOGLOBIN 8.3 g/dL (13.5-17.0); MEAN CORPUSCULAR HEMOGLOBIN 29.9 pg (27.0-33.4); MEAN CORPUSCULAR HGB CONC 33.7 g/dL (32.0-36.0); MEAN CORPUSCULAR VOLUME 89 fl (80-97); PLATELET COUNT 211 10^3/uL (150-450); RED BLOOD COUNT 2.76 10^6/uL (4.35-5.55); RED CELL DISTRIBUTION WIDTH 14.7 % (11.5-14.0); WHITE BLOOD COUNT 9.1 10^3/uL (4.0-10.5)
--- NOTE | 2020-03-19 10:47 | PDOC PROGRESS REPORT ---
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 He says he normally gets around in a scooter inside the house on the bottom floor, and when he has to go up some short stairs he uses an office chair with wheels to get around upstairs. It is not clear if he was c oming up the stairs or going down the stairs, but at some point he fell and landed on both of his knees. This is the reason he was brought in. Multiple plain films show a lot of arthritis but no acute fractures. While he was here he started complaining of shortness of breath and was hypoxemic. His blood pressure was also high because he is not taking any of his medications this morning. He does not know who his senior applications analyst is. He does not know if he has a history of congestive heart failure but he does take torsemide at home, which he says is because he gets swelling in his legs intermittently. He has been able to lay down flat at home. He is not been having any fevers. No cough. He mostly gets short of breath with exertion but he is obviously very deconditioned and this complicates his clinical picture. He had to get put on BiPAP for a little while in the ER and this improved his breathing. He does not wear oxygen at home. He appeared to have some bilateral edema on chest x-ray. 03/14/20--No adverse events overnight. He is off BiPAP and back on the nasal cannula. Breathing has been comfortable. We talked about doing some physical therapy but he was not terribly excited about the idea of that. 03/15/20-His blood pressure was low this morning. His creatinine was worse. He was awake but he seemed very subdued. ABG showed a respiratory acidosis. Dr. Abdullahi came in and put in a central line. We gave him some fluids and his blood pressure has improved some but is still pretty low. We put him on BiPAP and have had to encourage him to take deep breaths. 03/16/20-Incredibly, Mr. Burnett actually looks better today. His blood pressure has improved and he is more awake. His CO2 has improved a little bit but his pH is still low. His bicarbonate is actually within the normal range on his blood gas. His creatinine has at least stabilized but he is still not put out any urine. 03/17-No adverse events overnight. He is improved substantially. He had di alysis yesterday. He is putting out urine through the Matt catheter now. He is on a nasal cannula. His blood pressures have improved. 03/18/20-The patient had hemodialysis in the ICU earlier today. He is currently on a nasal cannula. There is somewhat confusing listening to him talk as he is trying to convey this started recent hallucinations and he does not do a good job of distinguishing reality from the hallucinations but clearly he understands that there were not hallucinations. I am not sure of the etiology. It is most likely hypercapnia at that he exhibited over the last week 03/19/2020-no acute events in the last 24 hours. Blood pressure is 130/62 dopamine drip is discontinued. Comfortably in the bed communicating well. Creatinine improved to 3.87 after dialysis yesterday. Today's CBC is pending. Patient agreeable for rehab facility placement if needed. Reason For Visit: ACUTE HYPOXIC RESPIRATORY FAILURE, ACUTE CHF, HYPE Physical Exam Vital Signs: Temp Pulse Resp BP Pulse Ox 97.7 F 75 16 146/50 H 98 03/19/20 07:40 03/19/20 07:40 03/19/20 07:40 03/19/20 07:40 03/19/20 09:38 Intake & Output 03/18/20 03/19/20 03/20/20 06:59 06:59 06:59 Intake Total 1607 1520 1000 Output Total 1250 2625 Balance 357 -1105 1000 Weight 151.7 kg 156.4 kg General appearance: PRESENT: no acute distress, cooperative, morbidly obese Head exam: PRESENT: atraumatic Eye exam: PRESENT: PERRLA Mouth exam: PRESENT: moist, tongue midline Teeth exam: PRESENT: poor dentation Neck exam: ABSENT: carotid bruit, JVD, lymphadenopathy, thyromegaly Respiratory exam: PRESENT: decreased breath sounds Cardiovascular exam: PRESENT: RRR. ABSENT: diastolic murmur, rubs, systolic murmur GI/Abdominal exam: PRESENT: normal bowel sounds, soft. ABSENT: distended, guarding, mass, organolmegaly, rebound, tenderness Rectal exam: PRESENT: deferred Extremities exam: PRESENT: full ROM. ABSENT: calf tenderness, clubbing, pedal edema Neurological exam: PRESENT: alert, awake, oriented to person, oriented to place, oriented to time, oriented to situation, CN II-XII grossly intact. ABSENT: motor sensory deficit Psychiatric exam: PRESENT: appropriate affect, normal mood. ABSENT: homicidal ideation, suicidal ideation Results Laboratory Results: 03/17/20 05:30 03/19/20 06:10 03/19/20 06:10 Sodium 134.9 L Potassium 4.9 Chloride 101 Carbon Dioxide 26 Anion Gap 8 BUN 81 H D Creatinine 3.87 H Est GFR ( Amer) 18 L Glucose 139 H Calcium 7.4 L 03/13/20 08:39 Troponin I 0.075 NT-Pro-B Natriuret Pep 7080 H Impressions: Knee X-Ray 03/12/20 23:44 IMPRESSION: Osteopenia with advanced degenerative change copyright 2011 [email or web address]- All Rights Reserved Chest X-Ray 03/15/20 00:00 IMPRESSION: 1. Interval placement of a right-sided central line with the tip overlying the right atrium. 2. Cardiomegaly. Mild vascular congestion. Renal Ultrasound 03/17/20 00:00 IMPRESSION: Limited study. No obvious hydronephrosis. Assessment and Plan - Diagnosis (1) Hypotension Qualifiers: Hypotension type: hypotension due to hypovolemia Qualified Code(s): I95.89 - Other hypotension; E86.1 - Hypovolemia Is this a current diagnosis for this admission?: Yes Plan: We have had him on some fluids and a dopamine drip. We are starting to turn down the dopamine now because his blood pressure is recovering. March 18, 2020 The patient just returned from hemodialysis. We are trying to taper off of the dopamine drip. Blood pressures appear to be improving. Normally he is hypertensive. Still holding some of his other antihypertensive medications. We will add back when appropriate. 03/19/2020 hypotension is resolved. Off the IV fluids and off the dopamine drip. Blood pressure is 137/62. Plan is to closely monitor the blood pressures at this time. (2) Acute kidney injury superimposed on chronic kidney disease Is this a current diagnosis for this admission?: Yes Plan: His creatinine has improved after dialysis and he starting to put out some urine now. Nephrology is following to see if he will need further dialysis treatments. March 18, 2020 Underwent hemodialysis earlier today. 2 L were removed. The patient produced 1.2 L of urine yesterday. Continue current treatment regimen. When appropriate resume hypertension medications including diuretics. 03/19/2020-patient has a dialysis session yesterday. Creatinine improved to 3.87. His urine output is improving. So far he put out 625 mL today. With the dialysis patient yesterday creatinine improved from 5.25 to 3.87. (3) Atrial fibrillation Qualifiers: Atrial fibrillation type: unspecified Qualified Code(s): I48.91 - Unspecified atrial fibrillation Is this a current diagnosis for this admission?: Yes Plan: Rate is controlled, continue beta-hugh. We will have to consider an ticoagulation after assessing his fall risk. 03/19/2020-patient has a longstanding atrial fibrillation. Heart rate is 78 today. Recently on Coreg 25 mg p.o. twice a day. Not on anticoagulation. Not on anticoagulation because he is at high risk for fall. (4) Hyperkalemia Is this a current diagnosis for this admission?: Yes Plan: Improved after hemodialysis March 18, 2020 I will check serum potassium tomorrow. I believe dialysis will be removed enough potassium to get the patient back in the normal range. Continue to monitor electrolytes. 03/19/2020-patient has a dialysis session yesterday. Serum potassium normalized to 4.9. Patient will be on low potassium diet. (5) Acute on chronic diastolic (congestive) heart failure Is this a current diagnosis for this admission?: Yes Plan: He will need medical optimization. He does not appear to be in acute failure at this time. Diuretics held because of blood pressure and renal function. He only got 2 doses of Lasix. Echocardiogram shows a preserved ejection fraction, some mild pulmonary hypertension and mild aortic stenosis. March 18, 2020 Fluid management with dialysis and eventually diuretics. Defer hemodialysis treatment decisions to nephrology. 03/19/2020-echocardiogram indicates normal ejection fraction with associated mild pulmonary hypertension and mild aortic stenosis. Patient has a dialysis session yesterday on examination this morning is not in fluid overload. IV fluids are discontinued dopamine drip is discontinued. Patient is started on torsemide 20 mg p.o. daily by Dr. Lundberg. (6) Acute on chronic respiratory failure with hypoxia and hypercapnia Is this a current diagnosis for this admission?: Yes Plan: March 18, 2020 Blood gas yesterday shows continued improvement in the patient's PCO2. It is below 55. He may likely be at his baseline. Wean BiPAP machine is still in his room. He is currently on nasal cannula. We will try to keep oxygen saturation around 90% to 94% 03/19/2020-pulse ox today is 99% on 4 L. Patient is refusing to wear the BiPAP. Plan is to continue the present management at this time. In the ABGs PCO2 is elevated most likely secondary to CO2 retention with morbid obesity. Most likely patient has obstructive sleep apnea. (7) Anemia in chronic kidney disease (CKD) Qualifiers: Chronic kidney disease stage: stage 3 (moderate) Qualified Code(s): N18.3 - Chronic kidney disease, stage 3 (moderate); D63.1 - Anemia in chronic kidney disease Is this a current diagnosis for this admission?: No Plan: Hemoglobin stable, continue to monitor March 18, 2020 Iron and erythropoietin per nephrology. Continue to monitor hemoglobin. Slight dip to 8.4 today. Recheck tomorrow. 03/19/2020-patient's hemoglobin is 8.4 anemia of chronic disease most likely [place] to underlying CKD. (8) Hypertensive urgency Is this a current diagnosis for this admission?: Yes Plan: Blood pressures have improved after resuming his home medications. They are on hold for now because of hypotension. 03/18/2020 Went home medications were resumed and blood pressure began to decrease. Eventually it became tomorrow he is now on dopamine. Continue to monitor closely and adjust medications accordingly. (9) Fall Qualifiers: Encounter type: initial encounter Qualified Code(s): W19.XXXA - Unspecified fall, initial encounter Is this a current diagnosis for this admission?: Yes Plan: PT evaluation pending more clinical improvement March 18, 2020 Physical therapy to evaluate when patient is more stable. 03/19/2020-patient is receiving Ultram 50 mg p.o. every 6 hours physical therapy working with the patient. Patient agreed to go to a rehab facility if necessary. (10) Degenerative arthritis of knee, bilateral Qualifiers: Osteoarthritis type: unspecified Qualified Code(s): M17.0 - Bilateral primary osteoarthritis of knee Is this a current diagnosis for this admission?: No Plan: Will order PT evaluation. He was not excited about the idea of doing physical therapy. March 18, 2020 Significantly worsened by his weight. Physical therapy may be limited as well to the patient's BMI. (11) Morbid obesity with BMI of 45.0-49.9, adult Is this a current diagnosis for this admission?: No Plan: March 18, 2020 Significant comorbidity with underlying lung and heart disease. At this point weight loss is unlikely. Continue supportive strategies. (12) Coronary artery disease Qualifiers: Coronary Disease-Associated Artery/Lesion type: [place] artery [place] vs. transplanted heart: [place] heart Is this a current diagnosis for this admission?: No Plan: We will continue home medication regimen March 18, 2020 Juggling patient's usual medication regimen in light of blood pressure issues. No evidence of acute coronary syndrome at this time.
--- NOTE | 2020-03-19 11:59 | PDOC PROGRESS REPORT ---
Subjective Progress Note for:: 03/19/20 Subjective:: Patient is doing well today. He was seen laying in his bed at the time of examination. His dopamine drip had been discontinued and bp is remaining stable. He received dialysis yesterday without complications. Urine output did decrease to 700mL yesterday. He is to start torsemide today. He denies any chest pain, SOB, n/v/d. He is constipated and has not had a bowel movement in the past few days. He just received dulcolax this morning. Reason For Visit: ACUTE HYPOXIC RESPIRATORY FAILURE, ACUTE CHF, HYPE Physical Exam Vital Signs: Temp Pulse Resp BP Pulse Ox 97.7 F 75 16 146/50 H 98 03/19/20 07:40 03/19/20 07:40 03/19/20 07:40 03/19/20 07:40 03/19/20 09:38 Intake & Output 03/18/20 03/19/20 03/20/20 06:59 06:59 06:59 Intake Total 1607 1520 1000 Output Total 1250 2625 Balance 357 -1105 1000 Weight 151.7 kg 156.4 kg General appearance: PRESENT: no acute distress, well-developed, well-nourished Respiratory exam: PRESENT: crackles. ABSENT: clear to auscultation [place], rales, rhonchi, wheezes Cardiovascular exam: PRESENT: +S1, +S2 GI/Abdominal exam: PRESENT: soft. ABSENT: tenderness Extremities exam: PRESENT: +1 edema. ABSENT: pedal edema, +2 edema Musculoskeletal exam: PRESENT: normal inspection. ABSENT: tenderness Neurological exam: PRESENT: alert, awake, oriented to person, oriented to place, oriented to time, oriented to situation Psychiatric exam: PRESENT: appropriate affect, normal mood Skin exam: PRESENT: dry, intact, warm. ABSENT: cyanosis Results Laboratory Results: 03/19/20 06:10 03/19/20 03/19/20 06:10 06:10 Sodium 134.9 L Potassium 4.9 Chloride 101 Carbon Dioxide 26 Anion Gap 8 BUN 81 H D Creatinine 3.87 H Est GFR ( Amer) 18 L Glucose 139 H Calcium 7.4 L Magnesium 1.9 03/13/20 08:39 Troponin I 0.075 NT-Pro-B Natriuret Pep 7080 H Impressions: Knee X-Ray 03/12/20 23:44 IMPRESSION: Osteopenia with advanced degenerative change copyright 2010 [employer]- All Rights Reserved Chest X-Ray 03/15/20 00:00 IMPRESSION: 1. Interval placement of a right-sided central line with the tip overlying the right atrium. 2. Cardiomegaly. Mild vascular congestion. Renal Ultrasound 03/17/20 00:00 IMPRESSION: Limited study. No obvious hydronephrosis. Assessment & Plan - Diagnosis (1) Acute kidney injury superimposed on chronic kidney disease Is this a current diagnosis for this admission?: Yes Plan: nonoliguric, was do to hypotension, currently bp is improved. He is off fluids and dopamine. He received dialysis yesterday. Creatinine is improved to 3.87 today. Starting torsemide 20mg qd today. Will have to reassess for possible need to do dialysis tomorrow morning. Follow up with labs and strict Is&Os for accurate urine output. (2) Acute hypercapnic respiratory failure Is this a current diagnosis for this admission?: Yes Plan: improved, off bipap, still on oxygen via [place] 4L. Starting torsemide to help remove more fluid. (3) CHF (congestive heart failure) Qualifiers: Heart failure type: unspecified Heart failure chronicity: unspecified Qualified Code(s): I50.9 - Heart failure, unspecified Plan: currently stable, restarting on toresmide today. (4) Hypotension Qualifiers: Hypotension type: hypotension due to hypovolemia Qualified Code(s): I95.89 - Other hypotension; E86.1 - Hypovolemia Is this a current diagnosis for this admission?: Yes Plan: off the dopamine, currently bp is stable (5) Anemia in chronic kidney disease (CKD) Qualifiers: Chronic kidney disease stage: stage 3 (moderate) Qualified Code(s): N18.3 - Chronic kidney disease, stage 3 (moderate); D63.1 - Anemia in chronic kidney disease Is this a current diagnosis for this admission?: No Plan: Patient received IV injectofer two days ago and retacrit yesterday with dialysis. Checking the hemoglobin today. Feccal occult blood test has not been done because he has not had a bowel movement. Received ducolax this morning. (6) Hyperkalemia Is this a current diagnosis for this admission?: Yes Plan: stable (7) Morbid obesity with BMI of 45.0-49.9, adult Is this a current diagnosis for this admission?: No (8) Pulmonary hypertension Is this a current diagnosis for this admission?: Yes (9) Atrial fibrillation Qualifiers: Atrial fibrillation type: unspecified Qualified Code(s): I48.91 - Unspecified atrial fibrillation Is this a current diagnosis for this admission?: Yes Plan: per hospitalist (10) Fall Qualifiers: Encounter type: initial encounter Qualified Code(s): W19.XXXA - Unspecified fall, initial encounter Is this a current diagnosis for this admission?: Yes Plan:
[2020-03-19 12:03] LABS: BAND NEUTROPHILS % (MANUAL) 1 % (3-5); BASOPHILS % (MANUAL) 0 % (0-2); EOSINOPHILS % (MANUAL) 0 % (0-6); SEGMENTED NEUTROPHILS % (MAN) 88 % (42-78); TOTAL CELLS COUNTED 100
[2020-03-19 12:04] LABS: ABSOLUTE LYMPHOCYTES# (MANUAL) 0.4 10^3/uL (0.5-4.7); ABSOLUTE MONOCYTES # (MANUAL) 0.6 10^3/uL (0.1-1.4); LYMPHOCYTES % (MANUAL) 3 % (13-45); MONOCYTES % (MANUAL) 7 % (3-13); OVALOCYTES SLIGHT; PLATELET COMMENT ADEQUATE; POIKILOCYTOSIS SLIGHT; POLYCHROMASIA SLIGHT
[2020-03-19] MEDS: TRAMADOL HCL 50 MG TABLET PO PRN ×2 (13:04→21:51)
[2020-03-19] MEDS: ATORVASTATIN CALCIUM 40 MG TABLET PO SCH (21:51)
[2020-03-20] MEDS: TRAMADOL HCL 50 MG TABLET PO PRN (05:20)
[2020-03-20] MEDS: HEPARIN SOD (PORCINE) 5,000 UNIT/ML 1 ML VIAL SUBCUT SCH ×3 (05:22→21:11)
[2020-03-20 05:31] LABS: ALBUMIN 2.8 g/dL (3.5-5.0); ALKALINE PHOSPHATASE 57 U/L (38-126); ANION GAP 10 (5-19); ASPARTATE AMINO TRANSFERASE 27 U/L (17-59); BILIRUBIN,TOTAL 0.4 mg/dL (0.2-1.3); BLOOD UREA NITROGEN 95 mg/dL (7-20); CALCIUM 7.5 mg/dL (8.4-10.2); CARBON DIOXIDE 25 mmol/L (22-30); CHLORIDE 101 mmol/L (98-107); GLUCOSE 124 mg/dL (75-110); POTASSIUM 4.9 mmol/L (3.6-5.0); TOTAL PROTEIN 5.5 g/dL (6.3-8.2)
[2020-03-20 05:33] LABS: HEMATOCRIT 25.5 % (37.9-51.0); HEMOGLOBIN 8.4 g/dL (13.5-17.0); MEAN CORPUSCULAR HEMOGLOBIN 29.8 pg (27.0-33.4); MEAN CORPUSCULAR HGB CONC 32.8 g/dL (32.0-36.0); MEAN CORPUSCULAR VOLUME 91 fl (80-97); PLATELET COUNT 218 10^3/uL (150-450); RED BLOOD COUNT 2.81 10^6/uL (4.35-5.55); WHITE BLOOD COUNT 11.7 10^3/uL (4.0-10.5)
[2020-03-20 05:54] LABS: ABSOLUTE LYMPHOCYTES# (MANUAL) 0.5 10^3/uL (0.5-4.7); ABSOLUTE MONOCYTES # (MANUAL) 0.4 10^3/uL (0.1-1.4); BASOPHILS % (MANUAL) 0 % (0-2); EOSINOPHILS % (MANUAL) 0 % (0-6); LYMPHOCYTES % (MANUAL) 4 % (13-45); MONOCYTES % (MANUAL) 3 % (3-13); SEGMENTED NEUTROPHILS % (MAN) 91 % (42-78); TOTAL CELLS COUNTED 100
[2020-03-20 05:56] LABS: ANISOCYTOSIS SLIGHT
[2020-03-20 05:57] LABS: PLATELET COMMENT ADEQUATE
[2020-03-20 05:58] LABS: OVALOCYTES SLIGHT; POLYCHROMASIA SLIGHT
[2020-03-20 05:59] LABS: MYELOCYTES % (MANUAL) 2 % (0)
[2020-03-20] MEDS: CLOPIDOGREL BISULFATE 75 MG TABLET PO SCH (09:50)
[2020-03-20] MEDS: TORSEMIDE 20 MG TABLET PO SCH (09:50)
[2020-03-20] MEDS: FEBUXOSTAT 40 MG TABLET PO SCH (09:50)
[2020-03-20] MEDS: CALCITRIOL 0.25 MCG CAPSULE PO SCH (09:50)
[2020-03-20] MEDS: HYDROCORTISONE SOD SUCCINATE INJ/PF 100 MG/2 ML SDV IV SCH ×2 (09:50→21:11)
[2020-03-20] MEDS: CARVEDILOL 12.5 MG TABLET PO SCH ×2 (09:50→21:11)
[2020-03-20] MEDS: PANTOT AC/MIN OIL/PET HY-PHL OINT 50 GM TOP SCH ×2 (09:50→17:21)
[2020-03-20] MEDS: NYSTATIN TOPICAL POWDER 15 GM TP SCH ×2 (09:51→17:22)
--- NOTE | 2020-03-20 09:55 | PDOC PROGRESS REPORT ---
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 He says he normally gets around in a scooter inside the house on the bottom floor, and when he has to go up some short stairs he uses an office chair with wheels to get around upstairs. It is not clear if he was c oming up the stairs or going down the stairs, but at some point he fell and landed on both of his knees. This is the reason he was brought in. Multiple plain films show a lot of arthritis but no acute fractures. While he was here he started complaining of shortness of breath and was hypoxemic. His blood pressure was also high because he is not taking any of his medications this morning. 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 He does not know if he has a history of congestive heart failure but he does take torsemide at home, which he says is because he gets swelling in his legs intermittently. He has been able to lay down flat at home. He is not been having any fevers. No cough. He mostly gets short of breath with exertion but he is obviously very deconditioned and this complicates his clinical picture. He had to get put on BiPAP for a little while in the ER and this improved his breathing. He does not wear oxygen at home. He appeared to have some bilateral edema on chest x-ray. 03/14/20--No adverse events overnight. He is off BiPAP and back on the nasal cannula. Breathing has been comfortable. We talked about doing some physical therapy but he was not terribly excited about the idea of that. 03/15/20-His blood pressure was low this morning. His creatinine was worse. He was awake but he seemed very subdued. ABG showed a respiratory acidosis. Dr. Abdullahi came in and put in a central line. We gave him some fluids and his blood pressure has improved some but is still pretty low. We put him on BiPAP and have had to encourage him to take deep breaths. 03/16/20-Incredibly, Mr. Burnett actually looks better today. His blood pressure has improved and he is more awake. His CO2 has improved a little bit but his pH is still low. His bicarbonate is actually within the normal range on his blood gas. His creatinine has at least stabilized but he is still not put out any urine. 03/17-No adverse events overnight. He is improved substantially. He had di alysis yesterday. He is putting out urine through the Matt catheter now. He is on a nasal cannula. His blood pressures have improved. 03/18/20-The patient had hemodialysis in the ICU earlier today. He is currently on a nasal cannula. There is somewhat confusing listening to him talk as he is trying to convey this started recent hallucinations and he does not do a good job of distinguishing reality from the hallucinations but clearly he understands that there were not hallucinations. I am not sure of the etiology. It is most likely hypercapnia at that he exhibited over the last week 03/19/2020-no acute events in the last 24 hours. Blood pressure is 130/62 dopamine drip is discontinued. Comfortably in the bed communicating well. Creatinine improved to 3.87 after dialysis yesterday. Today's CBC is pending. Patient agreeable for rehab facility placement if needed. 03/20/2020-patient is comfortably in the bed communicating well. Requesting for arthritis medication. Nephrology follow-up is pending he may go for dialysis today. Obese male comfortably in the bed not in distress. Reason For Visit: ACUTE HYPOXIC RESPIRATORY FAILURE, ACUTE CHF, HYPE Physical Exam Vital Signs: Temp Pulse Resp BP Pulse Ox 97.3 F 66 19 135/53 H 98 03/20/20 07:57 03/20/20 07:57 03/20/20 07:57 03/20/20 07:57 03/20/20 07:57 Intake & Output 03/19/20 03/20/20 03/21/20 06:59 06:59 06:59 Intake Total 1520 2150 Output Total 2625 1050 Balance -1105 1100 Weight 156.4 kg 153.6 kg General appearance: PRESENT: no acute distress, morbidly obese Head exam: PRESENT: atraumatic Eye exam: PRESENT: PERRLA Mouth exam: PRESENT: moist, tongue midline Teeth exam: PRESENT: poor dentation Respiratory exam: PRESENT: clear to auscultation carrington. ABSENT: rales, rhonchi, wheezes Cardiovascular exam: PRESENT: RRR. ABSENT: diastolic murmur, rubs, systolic murmur GI/Abdominal exam: PRESENT: normal bowel sounds, soft. ABSENT: distended, guarding, mass, organolmegaly, rebound, tenderness Rectal exam: PRESENT: deferred Extremities exam: PRESENT: full ROM. ABSENT: calf tenderness, clubbing, pedal edema Neurological exam: PRESENT: alert, awake, oriented to person, oriented to place, oriented to time, oriented to situation, CN II-XII grossly intact. ABSENT: motor sensory deficit Psychiatric exam: PRESENT: appropriate affect, normal mood. ABSENT: homicidal ideation, suicidal ideation Results Laboratory Results: 03/20/20 05:00 03/20/20 05:00 03/19/20 03/19/20 03/19/20 06:10 10:20 14:40 WBC 9.1 RBC 2.76 L Hgb 8.3 L Hct 24.5 L MCV 89 MCH 29.9 MCHC 33.7 RDW 14.7 H Plt Count 211 Seg Neutrophils % Not Reportable Sodium Potassium Chloride Carbon Dioxide Anion Gap BUN Creatinine Est GFR ( Amer) Glucose Calcium Magnesium 1.9 Total Bilirubin AST Alkaline Phosphatase Total Protein Albumin Stool Occult Blood NEGATIVE 03/20/20 03/20/20 05:00 05:00 WBC 11.7 H RBC 2.81 L Hgb 8.4 L Hct 25.5 L MCV 91 MCH 29.8 MCHC 32.8 RDW 15.0 H Plt Count 218 Seg Neutrophils % Not Reportable Sodium 135.7 L Potassium 4.9 Chloride 101 Carbon Dioxide 25 Anion Gap 10 BUN 95 H Creatinine 3.93 H Est GFR ( Amer) 18 L Glucose 124 H Calcium 7.5 L Magnesium 2.1 Total Bilirubin 0.4 AST 27 Alkaline Phosphatase 57 Total Protein 5.5 L Albumin 2.8 L Stool Occult Blood 03/13/20 08:39 Troponin I 0.075 NT-Pro-B Natriuret Pep 7080 H Impressions: Knee X-Ray 03/12/20 23:44 IMPRESSION: Osteopenia with advanced degenerative change copyright 2011 [employer]- All Rights Reserved Chest X-Ray 03/15/20 00:00 IMPRESSION: 1. Interval placement of a right-sided central line with the tip overlying the right atrium. 2. Cardiomegaly. Mild vascular congestion. Renal Ultrasound 03/17/20 00:00 IMPRESSION: Limited study. No obvious hydronephrosis. Assessment and Plan - Diagnosis (1) Hypotension Qualifiers: Hypotension type: hypotension due to hypovolemia Qualified Code(s): I95.89 - Other hypotension; E86.1 - Hypovolemia Is this a current diagnosis for this admission?: Yes Plan: We have had him on some fluids and a dopamine drip. We are starting to turn down the dopamine now because his blood pressure is recovering. March 18, 2020 The patient just returned from hemodialysis. We are trying to taper off of the dopamine drip. Blood pressures appear to be improving. Normally he is hypertensive. Still holding some of his other antihypertensive medications. We will add back when appropriate. 03/19/2020 hypotension is resolved. Off the IV fluids and off the dopamine drip. Blood pressure is 137/62. Plan is to closely monitor the blood pressures at this time. 03/20/2020-blood pressure today is 140/67. Not on IV fluids not on dopamine drip. (2) Acute kidney injury superimposed on chronic kidney disease Is this a current diagnosis for this admission?: Yes Plan: His creatinine has improved after dialysis and he starting to put out some urine now. Nephrology is following to see if he will need further dialysis treatments. March 18, 2020 Underwent hemodialysis earlier today. 2 L were removed. The patient produced 1.2 L of urine yesterday. Continue current treatment regimen. When appropriate resume hypertension medications including diuretics. 03/19/2020-patient has a dialysis session yesterday. Creatinine improved to 3.87. His urine output is improving. So far he put out 625 mL today. With the dialysis patient yesterday creatinine improved from 5.25 to 3.87. 03/20/2020-serum creatinine today 3.9. Last dialysis is on Monday. Dr. Thurman is going to evaluate the patient to see if the patient needed dialysis today or not. (3) Atrial fibrillation Qualifiers: Atrial fibrillation type: unspecified Qualified Code(s): I48.91 - Unspecified atrial fibrillation Is this a current diagnosis for this admission?: Yes Plan: Rate is controlled, continue beta-hugh. We will have to consider anticoagulation after assessing his fall risk. 03/19/2020-patient has a longstanding atrial fibrillation. Heart rate is 78 today. Recently on Coreg 25 mg p.o. twice a day. Not on anticoagulation. Not on anticoagulation because he is at high risk for fall. 03/20/2020-patient's heart rate is around 65. History of paroxysmal atrial fibrillation. Presently on Coreg 25 mg p.o. twice a day he is not on anticoagulation because of high risk for fall. (4) Hyperkalemia Is this a current diagnosis for this admission?: Yes Plan: Improved after hemodialysis March 18, 2020 I will check serum potassium tomorrow. I believe dialysis will be removed enough potassium to get the patient back in the normal range. Continue to monitor electrolytes. 03/19/2020-patient has a dialysis session yesterday. Serum potassium normalized to 4.9. Patient will be on low potassium diet. 03/20/2020-serum potassium is 4.9, hyperkalemia is resolved. (5) Acute on chronic diastolic (congestive) heart failure Is this a current diagnosis for this admission?: Yes Plan: He will need medical optimization. He does not appear to be in acute failure at this time. Diuretics held because of blood pressure and renal function. He only got 2 doses of Lasix. Echocardiogram shows a preserved ejection fraction, some mild pulmonary hypertension and mild aortic stenosis. March 18, 2020 Fluid management with dialysis and eventually diuretics. Defer hemodialysis treatment decisions to nephrology. 03/19/2020-echocardiogram indicates normal ejection fraction with associated mild pulmonary hypertension and mild aortic stenosis. Patient has a dialysis session yesterday on examination this morning is not in fluid overload. IV fluids are discontinued dopamine drip is discontinued. Patient is started on torsemide 20 mg p.o. daily by Dr. Lundberg. 03/20/2020-blood pressure today is 140/57. Echocardiogram indicates normal EF. He has pulmonary hypertension and mild aortic stenosis. Presently on torsemide 20 mg p.o. daily. (6) Acute on chronic respiratory failure with hypoxia and hypercapnia Is this a current diagnosis for this admission?: Yes Plan: March 18, 2020 Blood gas yesterday shows continued improvement in the patient's PCO2. It is below 55. He may likely be at his baseline. Wean BiPAP machine is still in his room. He is currently on nasal cannula. We will try to keep oxygen saturation around 90% to 94% 03/19/2020-pulse ox today is 99% on 4 L. Patient is refusing to wear the BiPAP. Plan is to continue the present management at this time. In the ABGs PCO2 is elevated most likely secondary to CO2 retention with morbid obesity. Most likely patient has obstructive sleep apnea. 03/20/2020-pulse ox today is 99% on 3 L. Comfortably in the bed communicating well. Hypoxia and hypercapnia resolving. (7) Anemia in chronic kidney disease (CKD) Qualifiers: Chronic kidney disease stage: stage 3 (moderate) Qualified Code(s): N18.3 - Chronic kidney disease, stage 3 (moderate); D63.1 - Anemia in chronic kidney disease Is this a current diagnosis for this admission?: No Plan: Hemoglobin stable, continue to monitor March 18, 2020 Iron and erythropoietin per nephrology. Continue to monitor hemoglobin. Slight dip to 8.4 today. Recheck tomorrow. 03/19/2020-patient's hemoglobin is 8.4 anemia of chronic disease most likely sec ondary to underlying CKD. 03/20/2020-patient hemoglobin today is 8.4. Stable. (8) Hypertensive urgency Is this a current diagnosis for this admission?: Yes Plan: Blood pressures have improved after resuming his home medications. They are on hold for now because of hypotension. 03/18/2020 Went home medications were resumed and blood pressure began to decrease. Eventually it became tomorrow he is now on dopamine. Continue to monitor closely and adjust medications accordingly. 03/20/2020-blood pressure today is 140/67. On torsemide 20 mg p.o. daily. He is off dopamine drip and off IV fluids at this time. (9) Fall Qualifiers: Encounter type: initial encounter Qualified Code(s): W19.XXXA - Unspecified fall, initial encounter Is this a current diagnosis for this admission?: Yes Plan: PT evaluation pending more clinical improvement March 18, 2020 Physical therapy to evaluate when patient is more stable. 03/19/2020-patient is receiving Ultram 50 mg p.o. every 6 hours physical therapy working with the patient. Patient agreed to go to a rehab facility if necessary. 03/20/20--physical therapy is working with the patient. Plan is to send him to long-term care facility. (10) Degenerative arthritis of knee, bilateral Qualifiers: Osteoarthritis type: unspecified Qualified Code(s): M17.0 - Bilateral primary osteoarthritis of knee Is this a current diagnosis for this admission?: No Plan: Will order PT evaluation. He was not excited about the idea of doing physical t herapy. March 18, 2020 Significantly worsened by his weight. Physical therapy may be limited as well to the patient's BMI. (11) Morbid obesity with BMI of 45.0-49.9, adult Is this a current diagnosis for this admission?: No Plan: March 18, 2020 Significant comorbidity with underlying lung and heart disease. At this point weight loss is unlikely. Continue supportive strategies. (12) Coronary artery disease Qualifiers: Coronary Disease-Associated Artery/Lesion type: hopi artery [place] vs. transplanted heart: hopi heart Is this a current diagnosis for this admission?: No Plan: We will continue home medication regimen March 18, 2020 Juggling patient's usual medication regimen in light of blood pressure issues. No evidence of acute coronary syndrome at this time.
[2020-03-20] MEDS ORDERED: EPOETIN ALFA-EPBX 2,000 UNIT, EPOETIN ALFA-EPBX 3,000 UNIT, EPOETIN ALFA-EPBX 20,000 UN... IV PRN ×4 (11:30)
[2020-03-20] MEDS ORDERED: HEPARIN SOD (PORCINE) 1,000 UNIT/ML 10 ML VIAL IV PRN (11:30)
--- NOTE | 2020-03-20 11:58 | PDOC PROGRESS REPORT ---
Subjective Progress Note for:: 03/20/20 Reason For Visit: Patient seen today on the floor. Has a background history of severe diabetes mellitus, hypertension, morbid obesity, diastolic heart failure with pulmonary hypertension and CKD 4 with a base creatinine of 2.5-3 with proteinuria. Is feeling somewhat better. Blood pressure stable off dopamine. Urine output is improving but still patient looks fluid overloaded. He admits to some shortness of breath if he exerts a lot. No history of any chest pains, fever or chills. Labs and medications were reviewed. He was last dialyzed on Monday. Physical Exam Vital Signs: Temp Pulse Resp BP Pulse Ox 97.3 F 66 19 135/53 H 98 03/20/20 07:57 03/20/20 07:57 03/20/20 07:57 03/20/20 07:57 03/20/20 07:57 Intake & Output 03/19/20 03/20/20 03/21/20 06:59 06:59 06:59 Intake Total 1520 2150 Output Total 2625 1050 Balance -1105 1100 Weight 156.4 kg 153.6 kg General appearance: PRESENT: no acute distress Respiratory exam: PRESENT: clear to auscultation carrington, decreased breath sounds. ABSENT: crackles Cardiovascular exam: PRESENT: +S1, +S2 GI/Abdominal exam: PRESENT: normal bowel sounds, soft. ABSENT: organomegaly, tenderness Extremities exam: PRESENT: +1 edema Neurological exam: PRESENT: alert, oriented to person, oriented to place Psychiatric exam: PRESENT: appropriate affect Results Laboratory Results: 03/20/20 05:00 03/20/20 05:00 03/19/20 03/19/20 03/20/20 10:20 14:40 05:00 WBC 9.1 11.7 H RBC 2.76 L 2.81 L Hgb 8.3 L 8.4 L Hct 24.5 L 25.5 L MCV 89 91 MCH 29.9 29.8 MCHC 33.7 32.8 RDW 14.7 H 15.0 H Plt Count 211 218 Seg Neutrophils % Not Reportable Not Reportable Sodium Potassium Chloride Carbon Dioxide Anion Gap BUN Creatinine Est GFR ( Amer) Glucose Calcium Magnesium Total Bilirubin AST Alkaline Phosphatase Total Protein Albumin Stool Occult Blood NEGATIVE 03/20/20 05:00 WBC RBC Hgb Hct MCV MCH MCHC RDW Plt Count Seg Neutrophils % Sodium 135.7 L Potassium 4.9 Chloride 101 Carbon Dioxide 25 Anion Gap 10 BUN 95 H Creatinine 3.93 H Est GFR ( Amer) 18 L Glucose 124 H Calcium 7.5 L Magnesium 2.1 Total Bilirubin 0.4 AST 27 Alkaline Phosphatase 57 Total Protein 5.5 L Albumin 2.8 L Stool Occult Blood 03/13/20 08:39 Troponin I 0.075 NT-Pro-B Natriuret Pep 7080 H Impressions: Knee X-Ray 03/12/20 23:44 IMPRESSION: Osteopenia with advanced degenerative change copyright 2010 [employer]- All Rights Reserved Chest X-Ray 03/15/20 00:00 IMPRESSION: 1. Interval placement of a right-sided central line with the tip overlying the right atrium. 2. Cardiomegaly. Mild vascular congestion. Renal Ultrasound 03/17/20 00:00 IMPRESSION: Limited study. No obvious hydronephrosis. Assessment & Plan - Diagnosis (1) Acute kidney injury superimposed on chronic kidney disease Is this a current diagnosis for this admission?: Yes Plan: Improving urine output but patient still having fluid overload. Will put him on for dialysis today and extract at least 1.5 L. Discussed the procedure again and patient willing to proceed. Dialysis orders have been placed. (2) Hyperkalemia Is this a current diagnosis for this admission?: Yes Plan: Improving with initiation of hemodialysis. Monitor. (3) Hypotension Qualifiers: Hypotension type: hypotension due to hypovolemia Qualified Code(s): I95.89 - Other hypotension; E86.1 - Hypovolemia Is this a current diagnosis for this admission?: Yes Plan: Currently resolved and off dopamine drip. (4) Longstanding persistent atrial fibrillation Is this a current diagnosis for this admission?: Yes Plan: Rate controlled. (5) Morbid obesity with BMI of 45.0-49.9, adult Is this a current diagnosis for this admission?: No Plan: Status quo (6) Acute on chronic diastolic (congestive) heart failure Is this a current diagnosis for this admission?: Yes Plan: Improving. But still has clinical features suggestive of decompensated heart failure. We will put him on for dialysis again today and see response. (7) Anemia in chronic kidney disease (CKD) Qualifiers: Chronic kidney disease stage: stage 3 (moderate) Qualified Code(s): N18.3 - Chronic kidney disease, stage 3 (moderate); D63.1 - Anemia in chronic kidney disease Is this a current diagnosis for this admission?: No Plan: Adjust erythropoietin on dialysis.
[2020-03-20] MEDS: ATORVASTATIN CALCIUM 40 MG TABLET PO SCH (21:11)
[2020-03-21] MEDS: TRAMADOL HCL 50 MG TABLET PO PRN ×3 (02:42→19:52)
[2020-03-21] MEDS: HEPARIN SOD (PORCINE) 5,000 UNIT/ML 1 ML VIAL SUBCUT SCH ×3 (05:35→21:57)
[2020-03-21 06:19] LABS: HEMATOCRIT 27.3 % (37.9-51.0); HEMOGLOBIN 8.8 g/dL (13.5-17.0); MEAN CORPUSCULAR HEMOGLOBIN 29.3 pg (27.0-33.4); MEAN CORPUSCULAR HGB CONC 32.1 g/dL (32.0-36.0); MEAN CORPUSCULAR VOLUME 91 fl (80-97); PLATELET COUNT 260 10^3/uL (150-450); RED BLOOD COUNT 2.99 10^6/uL (4.35-5.55); RED CELL DISTRIBUTION WIDTH 15.1 % (11.5-14.0); WHITE BLOOD COUNT 15.5 10^3/uL (4.0-10.5)
[2020-03-21 06:43] LABS: ABSOLUTE LYMPHOCYTES# (MANUAL) 1.7 10^3/uL (0.5-4.7); ABSOLUTE MONOCYTES # (MANUAL) 0.9 10^3/uL (0.1-1.4); BAND NEUTROPHILS % (MANUAL) 1 % (3-5); BASOPHILS % (MANUAL) 0 % (0-2); EOSINOPHILS % (MANUAL) 0 % (0-6); LYMPHOCYTES % (MANUAL) 11 % (13-45); MONOCYTES % (MANUAL) 6 % (3-13); NUCLEATED RED BLOOD CELLS 2 /100 WBC (0); SEGMENTED NEUTROPHILS % (MAN) 82 % (42-78); TOTAL CELLS COUNTED 100
[2020-03-21 06:44] LABS: ANISOCYTOSIS 1+; PLATELET COMMENT ADEQUATE; POLYCHROMASIA 1+
[2020-03-21 07:04] LABS: ALBUMIN 2.8 g/dL (3.5-5.0); ALKALINE PHOSPHATASE 57 U/L (38-126); ANION GAP 8 (5-19); ASPARTATE AMINO TRANSFERASE 24 U/L (17-59); BILIRUBIN,TOTAL 0.4 mg/dL (0.2-1.3); BLOOD UREA NITROGEN 95 mg/dL (7-20); CALCIUM 7.7 mg/dL (8.4-10.2); CARBON DIOXIDE 26 mmol/L (22-30); CHLORIDE 101 mmol/L (98-107); GLUCOSE 124 mg/dL (75-110); POTASSIUM 4.8 mmol/L (3.6-5.0); TOTAL PROTEIN 5.5 g/dL (6.3-8.2)
--- NOTE | 2020-03-21 08:21 | PDOC PROGRESS REPORT ---
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 He says he normally gets around in a scooter inside the house on the bottom floor, and when he has to go up some short stairs he uses an office chair with wheels to get around upstairs. It is not clear if he was c oming up the stairs or going down the stairs, but at some point he fell and landed on both of his knees. This is the reason he was brought in. Multiple plain films show a lot of arthritis but no acute fractures. While he was here he started complaining of shortness of breath and was hypoxemic. His blood pressure was also high because he is not taking any of his medications this morning. 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 He does not know if he has a history of congestive heart failure but he does take torsemide at home, which he says is because he gets swelling in his legs intermittently. He has been able to lay down flat at home. He is not been having any fevers. No cough. He mostly gets short of breath with exertion but he is obviously very deconditioned and this complicates his clinical picture. He had to get put on BiPAP for a little while in the ER and this improved his breathing. He does not wear oxygen at home. He appeared to have some bilateral edema on chest x-ray. 03/14/20--No adverse events overnight. He is off BiPAP and back on the nasal cannula. Breathing has been comfortable. We talked about doing some physical therapy but he was not terribly excited about the idea of that. 03/15/20-His blood pressure was low this morning. His creatinine was worse. He was awake but he seemed very subdued. ABG showed a respiratory acidosis. Dr. Abdullahi came in and put in a central line. We gave him some fluids and his blood pressure has improved some but is still pretty low. We put him on BiPAP and have had to encourage him to take deep breaths. 03/16/20-Incredibly, Mr. Burnett actually looks better today. His blood pressure has improved and he is more awake. His CO2 has improved a little bit but his pH is still low. His bicarbonate is actually within the normal range on his blood gas. His creatinine has at least stabilized but he is still not put out any urine. 03/17-No adverse events overnight. He is improved substantially. He had di alysis yesterday. He is putting out urine through the Matt catheter now. He is on a nasal cannula. His blood pressures have improved. 03/18/20-The patient had hemodialysis in the ICU earlier today. He is currently on a nasal cannula. There is somewhat confusing listening to him talk as he is trying to convey this started recent hallucinations and he does not do a good job of distinguishing reality from the hallucinations but clearly he understands that there were not hallucinations. I am not sure of the etiology. It is most likely hypercapnia at that he exhibited over the last week 03/19/2020-no acute events in the last 24 hours. Blood pressure is 130/62 dopamine drip is discontinued. Comfortably in the bed communicating well. Creatinine improved to 3.87 after dialysis yesterday. Today's CBC is pending. Patient agreeable for rehab facility placement if needed. 03/20/2020-patient is comfortably in the bed communicating well. Requesting for arthritis medication. Nephrology follow-up is pending he may go for dialysis today. Obese male comfortably in the bed not in distress. 03/21/2090-08-uyek-old male admitted with acute hypoxic respiratory failure which was resolved also admitted with acute on chronic kidney injury receiving dialysis on as-needed basis last session of dialysis is yesterday. He was also hypotensive during the hospital stay requiring dopamine drip and IV fluids. Presently blood pressure is 140/70 off the dopamine drip and off the IV fluids. Patient waiting for placement. Physical therapy working with the patient. Pulse ox is 97% on 3 L. Comfortably in the bed communicating well. Reason For Visit: ACUTE HYPOXIC RESPIRATORY FAILURE, ACUTE CHF, HYPE Physical Exam Vital Signs: Temp Pulse Resp BP Pulse Ox 97.3 F 72 18 141/70 H 97 03/21/20 03:24 03/21/20 07:00 03/21/20 03:24 03/21/20 03:24 03/21/20 06:04 Intake & Output 03/20/20 03/21/20 03/22/20 06:59 06:59 06:59 Intake Total 2150 950 Output Total 1050 3780 Balance 1100 -2830 Weight 153.6 kg 157.7 kg General appearance: PRESENT: cooperative, morbidly obese Head exam: PRESENT: atraumatic Eye exam: PRESENT: conjunctiva pale, PERRLA Mouth exam: PRESENT: moist, tongue midline Teeth exam: PRESENT: poor dentation Neck exam: ABSENT: carotid bruit, JVD, lymphadenopathy, thyromegaly Respiratory exam: PRESENT: decreased breath sounds Cardiovascular exam: PRESENT: RRR. ABSENT: diastolic murmur, rubs, systolic murmur GI/Abdominal exam: PRESENT: normal bowel sounds, soft. ABSENT: distended, guarding, mass, organolmegaly, rebound, tenderness Rectal exam: PRESENT: deferred Extremities exam: PRESENT: full ROM. ABSENT: calf tenderness, clubbing, pedal edema Neurological exam: PRESENT: alert, awake, oriented to person, oriented to place, oriented to time, oriented to situation, CN II-XII grossly intact. ABSENT: motor sensory deficit Results Laboratory Results: 03/21/20 05:32 03/21/20 05:32 03/21/20 03/21/20 05:32 05:32 WBC 15.5 H RBC 2.99 L Hgb 8.8 L Hct 27.3 L MCV 91 MCH 29.3 MCHC 32.1 RDW 15.1 H Plt Count 260 Seg Neutrophils % Not Reportable Sodium 135.3 L Potassium 4.8 Chloride 101 Carbon Dioxide 26 Anion Gap 8 BUN 95 H Creatinine 3.35 H Est GFR ( Amer) 22 L Glucose 124 H Calcium 7.7 L Magnesium 2.1 Total Bilirubin 0.4 AST 24 Alkaline Phosphatase 57 Total Protein 5.5 L Albumin 2.8 L 03/13/20 08:39 Troponin I 0.075 NT-Pro-B Natriuret Pep 7080 H Impressions: Knee X-Ray 03/12/20 23:44 IMPRESSION: Osteopenia with advanced degenerative change copyright 2011 [employer]- All Rights Reserved Chest X-Ray 03/15/20 00:00 IMPRESSION: 1. Interval placement of a right-sided central line with the tip overlying the right atrium. 2. Cardiomegaly. Mild vascular congestion. Renal Ultrasound 03/17/20 00:00 IMPRESSION: Limited study. No obvious hydronephrosis. Assessment and Plan - Diagnosis (1) Hypotension Qualifiers: Hypotension type: hypotension due to hypovolemia Qualified Code(s): I95.89 - Other hypotension; E86.1 - Hypovolemia Is this a current diagnosis for this admission?: Yes Plan: We have had him on some fluids and a dopamine drip. We are starting to turn down the dopamine now because his blood pressure is recovering. March 18, 2020 The patient just returned from hemodialysis. We are trying to taper off of the dopamine drip. Blood pressures appear to be improving. Normally he is hypertensive. Still holding some of his other antihypertensive medications. We will add back when appropriate. 03/19/2020 hypotension is resolved. Off the IV fluids and off the dopamine drip. Blood pressure is 137/62. Plan is to closely monitor the blood pressures at this time. 03/20/2020-blood pressure today is 140/67. Not on IV fluids not on dopamine drip. 03/21/2020-blood pressure today is 140/70. Stable. Not on IV fluids not on dopamine drip. (2) Acute kidney injury superimposed on chronic kidney disease Is this a current diagnosis for this admission?: Yes Plan: pt is getting dialysis and as needed basis. last dialysis session yesterday. Latest serum creatinine is 3.35. Improving. (3) Atrial fibrillation Qualifiers: Atrial fibrillation type: unspecified Qualified Code(s): I48.91 - Unspecified atrial fibrillation Is this a current diagnosis for this admission?: Yes (4) Hyperkalemia Is this a current diagnosis for this admission?: Yes Plan: Improved after hemodialysis March 18, 2020 I will check serum potassium tomorrow. I believe dialysis will be removed enough potassium to get the patient back in the normal range. Continue to monitor electrolytes. 03/19/2020-patient has a dialysis session yesterday. Serum potassium normalized to 4.9. Patient will be on low potassium diet. 03/20/2020-serum potassium is 4.9, hyperkalemia is resolved. 03/21/2020-serum potassium today is 4.8. Stable. Hyperkalemia is resolved. (5) Acute on chronic diastolic (congestive) heart failure Is this a current diagnosis for this admission?: Yes Plan: He will need medical optimization. He does not appear to be in acute failure at this time. Diuretics held because of blood pressure and renal function. He only got 2 doses of Lasix. Echocardiogram shows a preserved ejection fraction, some mild pulmonary hypertension and mild aortic stenosis. March 18, 2020 Fluid management with dialysis and eventually diuretics. Defer hemodialysis t reatment decisions to nephrology. 03/19/2020-echocardiogram indicates normal ejection fraction with associated mild pulmonary hypertension and mild aortic stenosis. Patient has a dialysis session yesterday on examination this morning is not in fluid overload. IV fluids are discontinued dopamine drip is discontinued. Patient is started on torsemide 20 mg p.o. daily by Dr. Lundberg. 03/20/2020-blood pressure today is 140/57. Echocardiogram indicates normal EF. He has pulmonary hypertension and mild aortic stenosis. Presently on torsemide 20 mg p.o. daily. 03/21/2020-patient went for the dialysis today 1.5 L of fluid is removed. Patient is presently on torsemide 20 mg p.o. daily. Volume status is improving. (6) Acute on chronic respiratory failure with hypoxia and hypercapnia Is this a current diagnosis for this admission?: Yes Plan: March 18, 2020 Blood gas yesterday shows continued improvement in the patient's PCO2. It is below 55. He may likely be at his baseline. Wean BiPAP machine is still in his room. He is currently on nasal cannula. We will try to keep oxygen saturation around 90% to 94% 03/19/2020-pulse ox today is 99% on 4 L. Patient is refusing to wear the BiPAP. Plan is to continue the present management at this time. In the ABGs PCO2 is elevated most likely secondary to CO2 retention with morbid obesity. Most likely patient has obstructive sleep apnea. 03/20/2020-pulse ox today is 99% on 3 L. Comfortably in the bed communicating well. Hypoxia and hypercapnia resolving. 03/21/2020-pulse ox today is 97% on 3 L. Comfortable in the bed communicating well. Not in respiratory distress. (7) Anemia in chronic kidney disease (CKD) Qualifiers: Chronic kidney disease stage: stage 3 (moderate) Qualified Code(s): N18.3 - Chronic kidney disease, stage 3 (moderate); D63.1 - Anemia in chronic kidney disease Is this a current diagnosis for this admission?: No Plan: Hemoglobin stable, continue to monitor March 18, 2020 Iron and erythropoietin per nephrology. Continue to monitor hemoglobin. Slight dip to 8.4 today. Recheck tomorrow. 03/19/2020-patient's hemoglobin is 8.4 anemia of chronic disease most likely secondary to underlying CKD. 03/20/2020-patient hemoglobin today is 8.4. Stable. 03/21/2020-hemoglobin today is 8.8. Stable. (8) Hypertensive urgency Is this a current diagnosis for this admission?: Yes Plan: Blood pressures have improved after resuming his home medications. They are on hold for now because of hypotension. 03/18/2020 Went home medications were resumed and blood pressure began to decrease. Eventually it became tomorrow he is now on dopamine. Continue to monitor closely and adjust medications accordingly. 03/20/2020-blood pressure today is 140/67. On torsemide 20 mg p.o. daily. He is off dopamine drip and off IV fluids at this time. 03/21/2020-blood pressure today is 140/70 hypertensive emergency resolved. (9) Fall Qualifiers: Encounter type: initial encounter Qualified Code(s): W19.XXXA - Unspecified fall, initial encounter Is this a current diagnosis for this admission?: Yes Plan: PT evaluation pending more clinical improvement March 18, 2020 Physical therapy to evaluate when patient is more stable. 03/19/2020-patient is receiving Ultram 50 mg p.o. every 6 hours physical therapy working with the patient. Patient agreed to go to a rehab facility if necessary. 03/20/20--physical therapy is working with the patient. Plan is to send him to long-term care facility. (10) Degenerative arthritis of knee, bilateral Qualifiers: Osteoarthritis type: unspecified Qualified Code(s): M17.0 - Bilateral primary osteoarthritis of knee Is this a current diagnosis for this admission?: No Plan: Will order PT evaluation. He was not excited about the idea of doing physical therapy. March 18, 2020 Significantly worsened by his weight. Physical therapy may be limited as well to the patient's BMI. (11) Morbid obesity with BMI of 45.0-49.9, adult Is this a current diagnosis for this admission?: No Plan: Status quo. (12) Coronary artery disease Qualifiers: Coronary Disease-Associated Artery/Lesion type: [place] artery [place] vs. transplanted heart: [place] heart Is this a current diagnosis for this admission?: No Plan: We will continue home medication regimen March 18, 2020 Juggling patient's usual medication regimen in light of blood pressure issues. No evidence of acute coronary syndrome at this time.
[2020-03-21] MEDS: TORSEMIDE 20 MG TABLET PO SCH (10:24)
[2020-03-21] MEDS: CALCITRIOL 0.25 MCG CAPSULE PO SCH (10:24)
[2020-03-21] MEDS: PANTOT AC/MIN OIL/PET HY-PHL OINT 50 GM TOP SCH ×2 (10:24→18:12)
[2020-03-21] MEDS: CLOPIDOGREL BISULFATE 75 MG TABLET PO SCH (10:24)
[2020-03-21] MEDS: CARVEDILOL 12.5 MG TABLET PO SCH ×2 (10:24→21:57)
[2020-03-21] MEDS: FEBUXOSTAT 40 MG TABLET PO SCH (10:24)
[2020-03-21] MEDS: HYDROCORTISONE SOD SUCCINATE INJ/PF 100 MG/2 ML SDV IV SCH ×2 (10:24→21:57)
[2020-03-21] MEDS: NYSTATIN TOPICAL POWDER 15 GM TP SCH ×2 (10:25→18:13)
[2020-03-21] MEDS ORDERED: NORMAL SALINE 1000 ML 500 ML IV ONE (17:03)
[2020-03-21] MEDS: ATORVASTATIN CALCIUM 40 MG TABLET PO SCH (21:57)
[2020-03-22] MEDS: HEPARIN SOD (PORCINE) 5,000 UNIT/ML 1 ML VIAL SUBCUT SCH ×3 (05:35→22:09)
[2020-03-22 05:54] LABS: HEMATOCRIT 26.3 % (37.9-51.0); HEMOGLOBIN 8.5 g/dL (13.5-17.0); MEAN CORPUSCULAR HEMOGLOBIN 29.6 pg (27.0-33.4); MEAN CORPUSCULAR HGB CONC 32.2 g/dL (32.0-36.0); MEAN CORPUSCULAR VOLUME 92 fl (80-97); PLATELET COUNT 271 10^3/uL (150-450); RED BLOOD COUNT 2.86 10^6/uL (4.35-5.55); RED CELL DISTRIBUTION WIDTH 15.3 % (11.5-14.0); WHITE BLOOD COUNT 13.7 10^3/uL (4.0-10.5)
[2020-03-22 06:04] LABS: ALBUMIN 2.7 g/dL (3.5-5.0); ALKALINE PHOSPHATASE 50 U/L (38-126); ANION GAP 8 (5-19); ASPARTATE AMINO TRANSFERASE 23 U/L (17-59); BILIRUBIN,TOTAL 0.3 mg/dL (0.2-1.3); BLOOD UREA NITROGEN 103 mg/dL (7-20); CALCIUM 7.9 mg/dL (8.4-10.2); CARBON DIOXIDE 27 mmol/L (22-30); CHLORIDE 102 mmol/L (98-107); GLUCOSE 142 mg/dL (75-110); POTASSIUM 4.9 mmol/L (3.6-5.0); TOTAL PROTEIN 5.4 g/dL (6.3-8.2)
[2020-03-22 06:11] LABS: ABSOLUTE LYMPHOCYTES# (MANUAL) 1.6 10^3/uL (0.5-4.7); ABSOLUTE MONOCYTES # (MANUAL) 0.5 10^3/uL (0.1-1.4); BAND NEUTROPHILS % (MANUAL) 2 % (3-5); BASOPHILS % (MANUAL) 0 % (0-2); EOSINOPHILS % (MANUAL) 0 % (0-6); LYMPHOCYTES % (MANUAL) 12 % (13-45); MONOCYTES % (MANUAL) 4 % (3-13); NUCLEATED RED BLOOD CELLS 2 /100 WBC (0); SEGMENTED NEUTROPHILS % (MAN) 82 % (42-78); TOTAL CELLS COUNTED 100
[2020-03-22 06:13] LABS: ANISOCYTOSIS SLIGHT; OVALOCYTES SLIGHT; PLATELET CLUMPS PRESENT; PLATELET COMMENT ADEQUATE; POIKILOCYTOSIS SLIGHT; POLYCHROMASIA SLIGHT
--- NOTE | 2020-03-22 07:58 | PDOC PROGRESS REPORT ---
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 He says he normally gets around in a scooter inside the house on the bottom floor, and when he has to go up some short stairs he uses an office chair with wheels to get around upstairs. It is not clear if he was c oming up the stairs or going down the stairs, but at some point he fell and landed on both of his knees. This is the reason he was brought in. Multiple plain films show a lot of arthritis but no acute fractures. While he was here he started complaining of shortness of breath and was hypoxemic. His blood pressure was also high because he is not taking any of his medications this morning. 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 He does not know if he has a history of congestive heart failure but he does take torsemide at home, which he says is because he gets swelling in his legs intermittently. He has been able to lay down flat at home. He is not been having any fevers. No cough. He mostly gets short of breath with exertion but he is obviously very deconditioned and this complicates his clinical picture. He had to get put on BiPAP for a little while in the ER and this improved his breathing. He does not wear oxygen at home. He appeared to have some bilateral edema on chest x-ray. 03/14/20--No adverse events overnight. He is off BiPAP and back on the nasal cannula. Breathing has been comfortable. We talked about doing some physical therapy but he was not terribly excited about the idea of that. 03/15/20-His blood pressure was low this morning. His creatinine was worse. He was awake but he seemed very subdued. ABG showed a respiratory acidosis. Dr. Abdullahi came in and put in a central line. We gave him some fluids and his blood pressure has improved some but is still pretty low. We put him on BiPAP and have had to encourage him to take deep breaths. 03/16/20-Incredibly, Mr. Burnett actually looks better today. His blood pressure has improved and he is more awake. His CO2 has improved a little bit but his pH is still low. His bicarbonate is actually within the normal range on his blood gas. His creatinine has at least stabilized but he is still not put out any urine. 03/17-No adverse events overnight. He is improved substantially. He had di alysis yesterday. He is putting out urine through the Matt catheter now. He is on a nasal cannula. His blood pressures have improved. 03/18/20-The patient had hemodialysis in the ICU earlier today. He is currently on a nasal cannula. There is somewhat confusing listening to him talk as he is trying to convey this started recent hallucinations and he does not do a good job of distinguishing reality from the hallucinations but clearly he understands that there were not hallucinations. I am not sure of the etiology. It is most likely hypercapnia at that he exhibited over the last week 03/19/2020-no acute events in the last 24 hours. Blood pressure is 130/62 dopamine drip is discontinued. Comfortably in the bed communicating well. Creatinine improved to 3.87 after dialysis yesterday. Today's CBC is pending. Patient agreeable for rehab facility placement if needed. 03/20/2020-patient is comfortably in the bed communicating well. Requesting for arthritis medication. Nephrology follow-up is pending he may go for dialysis today. Obese male comfortably in the bed not in distress. 03/21/2008-27[facility]old male admitted with acute hypoxic respiratory failure which was resolved also admitted with acute on chronic kidney injury receiving dialysis on as-needed basis last session of dialysis is yesterday. He was also hypotensive during the hospital stay requiring dopamine drip and IV fluids. Presently blood pressure is 140/70 off the dopamine drip and off the IV fluids. Patient waiting for placement. Physical therapy working with the patient. Pulse ox is 97% on 3 L. Comfortably in the bed communicating well. 03/22/20-patient is doing well this morning. Yesterday evening patient became hypotensive complaining of dizziness and lightheadedness. Given 500 cc of normal saline blood pressure improved back up. This morning alert awake oriented communicating well. Not in distress. Patient is waiting for placement. Reason For Visit: ACUTE HYPOXIC RESPIRATORY FAILURE, ACUTE CHF, HYPE Physical Exam Vital Signs: Temp Pulse Resp BP Pulse Ox 97.4 F 60 20 147/64 H 99 03/22/20 04:27 03/22/20 04:27 03/22/20 04:27 03/22/20 04:27 03/22/20 04:27 Intake & Output 03/21/20 03/22/20 03/23/20 06:59 06:59 06:59 Intake Total 950 618 Output Total 3780 920 Balance -2830 -302 Weight 157.7 kg 157.1 kg General appearance: PRESENT: no acute distress, morbidly obese Head exam: PRESENT: atraumatic Eye exam: PRESENT: PERRLA Mouth exam: PRESENT: moist, tongue midline Teeth exam: PRESENT: poor dentation Neck exam: ABSENT: carotid bruit, JVD, lymphadenopathy, thyromegaly Respiratory exam: PRESENT: decreased breath sounds Pulses: PRESENT: normal dorsalis pedis pul GI/Abdominal exam: PRESENT: normal bowel sounds, soft. ABSENT: distended, guarding, mass, organolmegaly, rebound, tenderness Rectal exam: PRESENT: deferred Extremities exam: PRESENT: full ROM. ABSENT: calf tenderness, clubbing, pedal edema Neurological exam: PRESENT: alert, awake, oriented to person, oriented to place, oriented to time, oriented to situation, CN II-XII grossly intact. ABSENT: motor sensory deficit Skin exam: PRESENT: dry, intact, warm. ABSENT: cyanosis, rash Results Laboratory Results: 03/22/20 05:40 03/22/20 05:40 03/22/20 03/22/20 05:40 05:40 WBC 13.7 H RBC 2.86 L Hgb 8.5 L Hct 26.3 L MCV 92 MCH 29.6 MCHC 32.2 RDW 15.3 H Plt Count 271 Seg Neutrophils % Not Reportable Sodium 137.0 Potassium 4.9 Chloride 102 Carbon Dioxide 27 Anion Gap 8 BUN 103 H Creatinine 3.21 H Est GFR ( Amer) 23 L Glucose 142 H Calcium 7.9 L Magnesium 2.3 Total Bilirubin 0.3 AST 23 Alkaline Phosphatase 50 Total Protein 5.4 L Albumin 2.7 L 03/13/20 08:39 Troponin I 0.075 NT-Pro-B Natriuret Pep 7080 H Impressions: Knee X-Ray 03/12/20 23:44 IMPRESSION: Osteopenia with advanced degenerative change copyright 2011 [employer]- All Rights Reserved Chest X-Ray 03/15/20 00:00 IMPRESSION: 1. Interval placement of a right-sided central line with the tip overlying the right atrium. 2. Cardiomegaly. Mild vascular congestion. Renal Ultrasound 03/17/20 00:00 IMPRESSION: Limited study. No obvious hydronephrosis. Assessment and Plan - Diagnosis (1) Hypotension Qualifiers: Hypotension type: hypotension due to hypovolemia Qualified Code(s): I95.89 - Other hypotension; E86.1 - Hypovolemia Is this a current diagnosis for this admission?: Yes Plan: We have had him on some fluids and a dopamine drip. We are starting to turn down the dopamine now because his blood pressure is recovering. March 18, 2020 The patient just returned from hemodialysis. We are trying to taper off of the dopamine drip. Blood pressures appear to be improving. Normally he is hypertensive. Still holding some of his other antihypertensive medications. We will add back when appropriate. 03/19/2020 hypotension is resolved. Off the IV fluids and off the dopamine drip. Blood pressure is 137/62. Plan is to closely monitor the blood pressures at this time. 03/20/2020-blood pressure today is 140/67. Not on IV fluids not on dopamine drip. 03/21/2020-blood pressure today is 140/70. Stable. Not on IV fluids not on dopamine drip. 03/22/2020-blood pressure today is 147/64. Stable. (2) Acute kidney injury superimposed on chronic kidney disease Is this a current diagnosis for this admission?: Yes Plan: pt is getting dialysis and as needed basis. last dialysis session yesterday. Latest serum creatinine is 3.35. Improving. 03/22/2020-serum creatinine today is 3.21 continue to improve on daily basis. (3) Atrial fibrillation Qualifiers: Atrial fibrillation type: unspecified Qualified Code(s): I48.91 - Unspecified atrial fibrillation Is this a current diagnosis for this admission?: No Plan: Rate is controlled, continue beta-hugh. We will have to consider anticoagulation after assessing his fall risk. 03/19/2020-patient has a longstanding atrial fibrillation. Heart rate is 78 to day. Recently on Coreg 25 mg p.o. twice a day. Not on anticoagulation. Not on anticoagulation because he is at high risk for fall. 03/20/2020-patient's heart rate is around 65. History of paroxysmal atrial fibrillation. Presently on Coreg 25 mg p.o. twice a day he is not on anticoagulation because of high risk for fall. 03/22/2020-patient has history of paroxysmal atrial fibrillation presently on Coreg 12.5 mg p.o. twice daily heart rate in the 50s. In sinus rhythm. (4) Hyperkalemia Is this a current diagnosis for this admission?: Yes Plan: Improved after hemodialysis March 18, 2020 I will check serum potassium tomorrow. I believe dialysis will be removed enough potassium to get the patient back in the normal range. Continue to monitor electrolytes. 03/19/2020-patient has a dialysis session yesterday. Serum potassium normalized to 4.9. Patient will be on low potassium diet. 03/20/2020-serum potassium is 4.9, hyperkalemia is resolved. 03/21/2020-serum potassium today is 4.8. Stable. Hyperkalemia is resolved. 03/22/2020-serum potassium today 4.9 hyperkalemia resolved. (5) Acute on chronic diastolic (congestive) heart failure Is this a current diagnosis for this admission?: Yes Plan: He will need medical optimization. He does not appear to be in acute failure at this time. Diuretics held because of blood pressure and renal function. He only got 2 doses of Lasix. Echocardiogram shows a preserved ejection fraction, some mild pulmonary hypertension and mild aortic stenosis. March 18, 2020 Fluid management with dialysis and eventually diuretics. Defer hemodialysis treatment decisions to nephrology. 03/19/2020-echocardiogram indicates normal ejection fraction with associated mild pulmonary hypertension and mild aortic stenosis. Patient has a dialysis session yesterday on examination this morning is not in fluid overload. IV fluids are discontinued dopamine drip is discontinued. Patient is started on torsemide 20 mg p.o. daily by Dr. Lundberg. 03/20/2020-blood pressure today is 140/57. Echocardiogram indicates normal EF. He has pulmonary hypertension and mild aortic stenosis. Presently on torsemide 20 mg p.o. daily. 03/21/2020-patient went for the dialysis today 1.5 L of fluid is removed. Patient is presently on torsemide 20 mg p.o. daily. Volume status is improving. 03/21/2020-blood pressure this morning is 147/64 on torsemide 10 mg daily and Coreg 12.5 mg p.o. twice daily. Yesterday evening blood pressure is low systolic blood pressure is around 100 given 500 cc of normal saline bolus. Blood pressures promptly improved. Today patient is asymptomatic. (6) Acute on chronic respiratory failure with hypoxia and hypercapnia Is this a current diagnosis for this admission?: Yes Plan: March 18, 2020 Blood gas yesterday shows continued improvement in the patient's PCO2. It is below 55. He may likely be at his baseline. Wean BiPAP machine is still in his room. He is currently on nasal cannula. We will try to keep oxygen saturation around 90% to 94% 03/19/2020-pulse ox today is 99% on 4 L. Patient is refusing to wear the BiPAP. Plan is to continue the present management at this time. In the ABGs PCO2 is elevated most likely secondary to CO2 retention with morbid obesity. Most likely patient has obstructive sleep apnea. 03/20/2020-pulse ox today is 99% on 3 L. Comfortably in the bed communicating well. Hypoxia and hypercapnia resolving. 03/21/2020-pulse ox today is 97% on 3 L. Comfortable in the bed communicating well. Not in respiratory distress. 03/22/2020-patient is comfortably sleeping in the bed laying flat not in distress. Pulse ox is 99% on 3 L. (7) Anemia in chronic kidney disease (CKD) Qualifiers: Chronic kidney disease stage: stage 3 (moderate) Qualified Code(s): N18.3 - Chronic kidney disease, stage 3 (moderate); D63.1 - Anemia in chronic kidney disease Is this a current diagnosis for this admission?: No Plan: Hemoglobin stable, continue to monitor March 18, 2020 Iron and erythropoietin per nephrology. Continue to monitor hemoglobin. Slight dip to 8.4 today. Recheck tomorrow. 03/19/2020-patient's hemoglobin is 8.4 anemia of chronic disease most likely secondary to underlying CKD. 03/20/2020-patient hemoglobin today is 8.4. Stable. 03/21/2020-hemoglobin today is 8.8. Stable. 03/22/20-latest hemoglobin is 8.5. Stable. Plan is to closely monitor the labs on daily basis. (8) Hypertensive urgency Is this a current diagnosis for this admission?: Yes Plan: Blood pressures have improved after resuming his home medications. They are on hold for now because of hypotension. 03/18/2020 Went home medications were resumed and blood pressure began to decrease. Eventually it became tomorrow he is now on dopamine. Continue to monitor closely and adjust medications accordingly. 03/20/2020-blood pressure today is 140/67. On torsemide 20 mg p.o. daily. He is off dopamine drip and off IV fluids at this time. 03/21/2020-blood pressure today is 140/70 hypertensive emergency resolved. 03/22/2020-blood pressure today is 147/64 stable. (9) Fall Qualifiers: Encounter type: initial encounter Qualified Code(s): W19.XXXA - Unspecified fall, initial encounter Is this a current diagnosis for this admission?: Yes Plan: PT evaluation pending more clinical improvement March 18, 2020 Physical therapy to evaluate when patient is more stable. 03/19/2020-patient is receiving Ultram 50 mg p.o. every 6 hours physical therapy working with the patient. Patient agreed to go to a rehab facility if necessary. 03/20/20--physical therapy is working with the patient. Plan is to send him to long-term care facility. (10) Degenerative arthritis of knee, bilateral Qualifiers: Osteoarthritis type: unspecified Qualified Code(s): M17.0 - Bilateral primary osteoarthritis of knee Is this a current diagnosis for this admission?: No Plan: Will order PT evaluation. He was not excited about the idea of doing physical therapy. March 18, 2020 Significantly worsened by his weight. Physical therapy may be limited as well to the patient's BMI. (11) Morbid obesity with BMI of 45.0-49.9, adult Is this a current diagnosis for this admission?: No Plan: Status quo. (12) Coronary artery disease Qualifiers: Coronary Disease-Associated Artery/Lesion type: [place] artery [place] vs. transplanted heart: [place] heart Is this a current diagnosis for this admission?: No Plan: We will continue home medication regimen March 18, 2020 Juggling patient's usual medication regimen in light of blood pressure issues. No evidence of acute coronary syndrome at this time.
[2020-03-22] MEDS: PANTOT AC/MIN OIL/PET HY-PHL OINT 50 GM TOP SCH ×2 (10:48→17:59)
[2020-03-22] MEDS: CALCITRIOL 0.25 MCG CAPSULE PO SCH (10:49)
[2020-03-22] MEDS: CLOPIDOGREL BISULFATE 75 MG TABLET PO SCH (10:49)
[2020-03-22] MEDS: TORSEMIDE 20 MG TABLET PO SCH (10:49)
[2020-03-22] MEDS: CARVEDILOL 12.5 MG TABLET PO SCH ×2 (10:50→22:09)
[2020-03-22] MEDS: HYDROCORTISONE SOD SUCCINATE INJ/PF 100 MG/2 ML SDV IV SCH ×2 (10:50→22:09)
[2020-03-22] MEDS: FEBUXOSTAT 40 MG TABLET PO SCH (10:52)
[2020-03-22] MEDS: NYSTATIN TOPICAL POWDER 15 GM TP SCH ×2 (10:54→17:59)
[2020-03-22] MEDS: TRAMADOL HCL 50 MG TABLET PO PRN (20:45)
[2020-03-22] MEDS: ATORVASTATIN CALCIUM 40 MG TABLET PO SCH (22:09)
[2020-03-23] MEDS: HEPARIN SOD (PORCINE) 5,000 UNIT/ML 1 ML VIAL SUBCUT SCH ×3 (05:14→22:51)
[2020-03-23] MEDS: HYDRALAZINE HCL INJ/PF 20 MG/1 ML SDV IV PRN (05:15)
[2020-03-23 05:57] LABS: HEMATOCRIT 27.2 % (37.9-51.0); HEMOGLOBIN 8.6 g/dL (13.5-17.0); MEAN CORPUSCULAR HEMOGLOBIN 29.3 pg (27.0-33.4); MEAN CORPUSCULAR HGB CONC 31.5 g/dL (32.0-36.0); MEAN CORPUSCULAR VOLUME 93 fl (80-97); PLATELET COUNT 280 10^3/uL (150-450); RED BLOOD COUNT 2.92 10^6/uL (4.35-5.55); RED CELL DISTRIBUTION WIDTH 15.4 % (11.5-14.0); WHITE BLOOD COUNT 12.2 10^3/uL (4.0-10.5)
[2020-03-23 06:15] LABS: ABSOLUTE LYMPHOCYTES# (MANUAL) 2.1 10^3/uL (0.5-4.7); ABSOLUTE MONOCYTES # (MANUAL) 0.6 10^3/uL (0.1-1.4); BASOPHILS % (MANUAL) 0 % (0-2); EOSINOPHILS % (MANUAL) 0 % (0-6); LYMPHOCYTES % (MANUAL) 17 % (13-45); MONOCYTES % (MANUAL) 5 % (3-13); NUCLEATED RED BLOOD CELLS 1 /100 WBC (0); SEGMENTED NEUTROPHILS % (MAN) 78 % (42-78); TOTAL CELLS COUNTED 100
[2020-03-23 06:16] LABS: ANISOCYTOSIS 1+; PLATELET COMMENT ADEQUATE; POLYCHROMASIA 1+
[2020-03-23 06:21] LABS: ALBUMIN 2.7 g/dL (3.5-5.0); ALKALINE PHOSPHATASE 51 U/L (38-126); ANION GAP 9 (5-19); ASPARTATE AMINO TRANSFERASE 26 U/L (17-59); BILIRUBIN,TOTAL 0.4 mg/dL (0.2-1.3); BLOOD UREA NITROGEN 106 mg/dL (7-20); CALCIUM 8.2 mg/dL (8.4-10.2); CARBON DIOXIDE 27 mmol/L (22-30); CHLORIDE 101 mmol/L (98-107); GLUCOSE 133 mg/dL (75-110); TOTAL PROTEIN 5.3 g/dL (6.3-8.2)
--- NOTE | 2020-03-23 08:54 | PDOC PROGRESS REPORT ---
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 He says he normally gets around in a scooter inside the house on the bottom floor, and when he has to go up some short stairs he uses an office chair with wheels to get around upstairs. It is not clear if he was c oming up the stairs or going down the stairs, but at some point he fell and landed on both of his knees. This is the reason he was brought in. Multiple plain films show a lot of arthritis but no acute fractures. While he was here he started complaining of shortness of breath and was hypoxemic. His blood pressure was also high because he is not taking any of his medications this morning. He does not know who his technicians and trades workers is. He does not know if he has a history of congestive heart failure but he does take torsemide at home, which he says is because he gets swelling in his legs intermittently. He has been able to lay down flat at home. He is not been having any fevers. No cough. He mostly gets short of breath with exertion but he is obviously very deconditioned and this complicates his clinical picture. He had to get put on BiPAP for a little while in the ER and this improved his breathing. He does not wear oxygen at home. He appeared to have some bilateral edema on chest x-ray. 03/14/20--No adverse events overnight. He is off BiPAP and back on the nasal cannula. Breathing has been comfortable. We talked about doing some physical therapy but he was not terribly excited about the idea of that. 03/15/20-His blood pressure was low this morning. His creatinine was worse. He was awake but he seemed very subdued. ABG showed a respiratory acidosis. Dr. Abdullahi came in and put in a central line. We gave him some fluids and his blood pressure has improved some but is still pretty low. We put him on BiPAP and have had to encourage him to take deep breaths. 03/16/20-Incredibly, Mr. Burnett actually looks better today. His blood pressure has improved and he is more awake. His CO2 has improved a little bit but his pH is still low. His bicarbonate is actually within the normal range on his blood gas. His creatinine has at least stabilized but he is still not put out any urine. 03/17-No adverse events overnight. He is improved substantially. He had di alysis yesterday. He is putting out urine through the Matt catheter now. He is on a nasal cannula. His blood pressures have improved. 03/18/20-The patient had hemodialysis in the ICU earlier today. He is currently on a nasal cannula. There is somewhat confusing listening to him talk as he is trying to convey this started recent hallucinations and he does not do a good job of distinguishing reality from the hallucinations but clearly he understands that there were not hallucinations. I am not sure of the etiology. It is most likely hypercapnia at that he exhibited over the last week 03/19/2020-no acute events in the last 24 hours. Blood pressure is 130/62 dopamine drip is discontinued. Comfortably in the bed communicating well. Creatinine improved to 3.87 after dialysis yesterday. Today's CBC is pending. Patient agreeable for rehab facility placement if needed. 03/20/2020-patient is comfortably in the bed communicating well. Requesting for arthritis medication. Nephrology follow-up is pending he may go for dialysis today. Obese male comfortably in the bed not in distress. 03/21/[id number]-old male admitted with acute hypoxic respiratory failure which was resolved also admitted with acute on chronic kidney injury receiving dialysis on as-needed basis last session of dialysis is yesterday. He was also hypotensive during the hospital stay requiring dopamine drip and IV fluids. Presently blood pressure is 140/70 off the dopamine drip and off the IV fluids. Patient waiting for placement. Physical therapy working with the patient. Pulse ox is 97% on 3 L. Comfortably in the bed communicating well. 03/22/20-patient is doing well this morning. Yesterday evening patient became hypotensive complaining of dizziness and lightheadedness. Given 500 cc of normal saline blood pressure improved back up. This morning alert awake oriented communicating well. Not in distress. Patient is waiting for placement. 03/23/2020-no acute events in the last 24 hours. Afebrile. Comfortably in the bed, communicating well. Creatinine improved to 3.12 today. Urinary output is good. WBC count improved to 12,200. Afebrile. Denies any complaints. Reason For Visit: ACUTE HYPOXIC RESPIRATORY FAILURE, ACUTE CHF, HYPE Physical Exam Vital Signs: Temp Pulse Resp BP Pulse Ox 97.5 F 97 21 H 140/51 H 99 03/23/20 07:45 03/23/20 07:45 03/23/20 07:45 03/23/20 07:45 03/23/20 07:45 Intake & Output 03/22/20 03/23/20 03/24/20 06:59 06:59 06:59 Intake Total 618 340 Output Total 920 1100 Balance -302 -760 Weight 157.1 kg 149.9 kg General appearance: PRESENT: no acute distress, morbidly obese Head exam: PRESENT: atraumatic Eye exam: PRESENT: PERRLA Ear exam: PRESENT: normal external ear exam Mouth exam: PRESENT: neck supple Teeth exam: PRESENT: poor dentation Neck exam: ABSENT: carotid bruit, JVD, lymphadenopathy, thyromegaly Respiratory exam: PRESENT: decreased breath sounds Cardiovascular exam: PRESENT: RRR. ABSENT: diastolic murmur, rubs, systolic murmur GI/Abdominal exam: PRESENT: normal bowel sounds, soft. ABSENT: distended, guarding, mass, organolmegaly, rebound, tenderness Rectal exam: PRESENT: deferred Extremities exam: PRESENT: full ROM. ABSENT: calf tenderness, clubbing, pedal edema Neurological exam: PRESENT: alert, awake, oriented to person, oriented to place, oriented to time, oriented to situation, CN II-XII grossly intact. ABSENT: motor sensory deficit Psychiatric exam: PRESENT: appropriate affect, normal mood. ABSENT: homicidal ideation, suicidal ideation Results Laboratory Results: 03/23/20 04:35 03/23/20 04:35 03/23/20 03/23/20 04:35 04:35 WBC 12.2 H RBC 2.92 L Hgb 8.6 L Hct 27.2 L MCV 93 MCH 29.3 MCHC 31.5 L RDW 15.4 H Plt Count 280 Seg Neutrophils % Not Reportable Sodium 136.6 L Potassium 5.0 Chloride 101 Carbon Dioxide 27 Anion Gap 9 BUN 106 H Creatinine 3.12 H Est GFR ( Amer) 23 L Glucose 133 H Calcium 8.2 L Magnesium 2.3 Total Bilirubin 0.4 AST 26 Alkaline Phosphatase 51 Total Protein 5.3 L Albumin 2.7 L 03/13/20 08:39 Troponin I 0.075 NT-Pro-B Natriuret Pep 7080 H Impressions: Knee X-Ray 03/12/20 23:44 IMPRESSION: Osteopenia with advanced degenerative change copyright 2011 [employer]- All Rights Reserved Chest X-Ray 03/15/20 00:00 IMPRESSION: 1. Interval placement of a right-sided central line with the tip overlying the right atrium. 2. Cardiomegaly. Mild vascular congestion. Renal Ultrasound 03/17/20 00:00 IMPRESSION: Limited study. No obvious hydronephrosis. Assessment and Plan - Diagnosis (1) Hypotension Qualifiers: Hypotension type: hypotension due to hypovolemia Qualified Code(s): I95.89 - Other hypotension; E86.1 - Hypovolemia Is this a current diagnosis for this admission?: Yes Plan: We have had him on some fluids and a dopamine drip. We are starting to turn down the dopamine now because his blood pressure is recovering. March 18, 2020 The patient just returned from hemodialysis. We are trying to taper off of the dopamine drip. Blood pressures appear to be improving. Normally he is hypertensive. Still holding some of his other antihypertensive medications. We will add back when appropriate. 03/19/2020 hypotension is resolved. Off the IV fluids and off the dopamine drip. Blood pressure is 137/62. Plan is to closely monitor the blood pressures at this time. 03/20/2020-blood pressure today is 140/67. Not on IV fluids not on dopamine drip. 03/21/2020-blood pressure today is 140/70. Stable. Not on IV fluids not on dopamine drip. 03/22/2020-blood pressure today is 147/64. Stable. 03/23/2020-blood pressure today is 141/60. Stable. Not on IV fluids not on dopamine drip at this time. (2) Acute kidney injury superimposed on chronic kidney disease Is this a current diagnosis for this admission?: Yes Plan: pt is getting dialysis and as needed basis. last dialysis session yesterday. Latest serum creatinine is 3.35. Improving. 03/22/2020-serum creatinine today is 3.21 continue to improve on daily basis. 03/23/2021-serum creatinine today 3.1. Improving. (3) Atrial fibrillation Qualifiers: Atrial fibrillation type: unspecified Qualified Code(s): I48.91 - Unspec ified atrial fibrillation Is this a current diagnosis for this admission?: No Plan: Rate is controlled, continue beta-hugh. We will have to consider anticoagulation after assessing his fall risk. 03/19/2020-patient has a longstanding atrial fibrillation. Heart rate is 78 today. Recently on Coreg 25 mg p.o. twice a day. Not on anticoagulation. Not on anticoagulation because he is at high risk for fall. 03/20/2020-patient's heart rate is around 65. History of paroxysmal atrial fibrillation. Presently on Coreg 25 mg p.o. twice a day he is not on anticoagulation because of high risk for fall. 03/22/2020-patient has history of paroxysmal atrial fibrillation presently on Coreg 12.5 mg p.o. twice daily heart rate in the 50s. In sinus rhythm. 03/23/2020-patient is on Coreg 12.5 mg p.o. twice a day heart rate in the 70s. In A. fib with rate control. (4) Hyperkalemia Is this a current diagnosis for this admission?: Yes Plan: Improved after hemodialysis March 18, 2020 I will check serum potassium tomorrow. I believe dialysis will be removed enough potassium to get the patient back in the normal range. Continue to monitor electrolytes. 03/19/2020-patient has a dialysis session yesterday. Serum potassium normalized to 4.9. Patient will be on low potassium diet. 03/20/2020-serum potassium is 4.9, hyperkalemia is resolved. 03/21/2020-serum potassium today is 4.8. Stable. Hyperkalemia is resolved. 03/22/2020-serum potassium today 4.9 hyperkalemia resolved. 03/23/2020-serum potassium today is 5.0. Within normal limits. Plan is to closely monitor the serum potassium at this time. (5) Acute on chronic diastolic (congestive) heart failure Is this a current diagnosis for this admission?: Yes Plan: He will need medical optimization. He does not appear to be in acute failure at this time. Diuretics held because of blood pressure and renal function. He only got 2 doses of Lasix. Echocardiogram shows a preserved ejection fraction, some mild pulmonary hypertension and mild aortic stenosis. March 18, 2020 Fluid management with dialysis and eventually diuretics. Defer hemodialysis t reatment decisions to nephrology. 03/19/2020-echocardiogram indicates normal ejection fraction with associated mild pulmonary hypertension and mild aortic stenosis. Patient has a dialysis session yesterday on examination this morning is not in fluid overload. IV fluids are discontinued dopamine drip is discontinued. Patient is started on torsemide 20 mg p.o. daily by Dr. Lundberg. 03/20/2020-blood pressure today is 140/57. Echocardiogram indicates normal EF. He has pulmonary hypertension and mild aortic stenosis. Presently on torsemide 20 mg p.o. daily. 03/21/2020-patient went for the dialysis today 1.5 L of fluid is removed. Patient is presently on torsemide 20 mg p.o. daily. Volume status is improving. 03/21/2020-blood pressure this morning is 147/64 on torsemide 10 mg daily and Core g 12.5 mg p.o. twice daily. Yesterday evening blood pressure is low systolic blood pressure is around 100 given 500 cc of normal saline bolus. Blood pressures promptly improved. Today patient is asymptomatic. 03/23/2020-blood pressure today is 145/60 slight edema present in the both feet. Chest bilateral entry was decreased no wheezing no crepitations. On torsemide 10 mg p.o. daily. urinary output is good. (6) Acute on chronic respiratory failure with hypoxia and hypercapnia Is this a current diagnosis for this admission?: Yes Plan: March 18, 2020 Blood gas yesterday shows continued improvement in the patient's PCO2. It is below 55. He may likely be at his baseline. Wean BiPAP machine is still in his room. He is currently on nasal cannula. We will try to keep oxygen saturation around 90% to 94% 03/19/2020-pulse ox today is 99% on 4 L. Patient is refusing to wear the BiPAP. Plan is to continue the present management at this time. In the ABGs PCO2 is elevated most likely secondary to CO2 retention with morbid obesity. Most likely patient has obstructive sleep apnea. 03/20/2020-pulse ox today is 99% on 3 L. Comfortably in the bed communicating well. Hypoxia and hypercapnia resolving. 03/21/2020-pulse ox today is 97% on 3 L. Comfortable in the bed communicating well. Not in respiratory distress. 03/22/2020-patient is comfortably sleeping in the bed laying flat not in distress. Pulse ox is 99% on 3 L. 03/23/2020-pulse ox is 98% on 3 L. Comfortably in the bed communicating well. Denies any chest tightness or wheezing. (7) Anemia in chronic kidney disease (CKD) Qualifiers: Chronic kidney disease stage: stage 3 (moderate) Qualified Code(s): N18.3 - Chronic kidney disease, stage 3 (moderate); D63.1 - Anemia in chronic kidney disease Is this a current diagnosis for this admission?: No Plan: Hemoglobin stable, continue to monitor March 18, 2020 Iron and erythropoietin per nephrology. Continue to monitor hemoglobin. Slight dip to 8.4 today. Recheck tomorrow. 03/19/2020-patient's hemoglobin is 8.4 anemia of chronic disease most likely secondary to underlying CKD. 03/20/2020-patient hemoglobin today is 8.4. Stable. 03/21/2020-hemoglobin today is 8.8. Stable. 03/22/20-latest hemoglobin is 8.5. Stable. Plan is to closely monitor the labs on daily basis. 03/23/2020-hemoglobin today is 8.6 stable. (8) Hypertensive urgency Is this a current diagnosis for this admission?: Yes Plan: Blood pressures have improved after resuming his home medications. They are on hold for now because of hypotension. 03/18/2020 Went home medications were resumed and blood pressure began to decrease. Eventually it became tomorrow he is now on dopamine. Continue to monitor closely and adjust medications accordingly. 03/20/2020-blood pressure today is 140/67. On torsemide 20 mg p.o. daily. He is off dopamine drip and off IV fluids at this time. 03/21/2020-blood pressure today is 140/70 hypertensive emergency resolved. 03/22/2020-blood pressure today is 147/64 stable. 03/23/2020-blood pressure today is 145/60 stable. (9) Fall Qualifiers: Encounter type: initial encounter Qualified Code(s): W19.XXXA - Unspecified fall, initial encounter Is this a current diagnosis for this admission?: Yes Plan: PT evaluation pending more clinical improvement March 18, 2020 Physical therapy to evaluate when patient is more stable. 03/19/2020-patient is receiving Ultram 50 mg p.o. every 6 hours physical therapy working with the patient. Patient agreed to go to a rehab facility if necessary. 03/20/20--physical therapy is working with the patient. Plan is to send him to long-term care facility. (10) Degenerative arthritis of knee, bilateral Qualifiers: Osteoarthritis type: unspecified Qualified Code(s): M17.0 - Bilateral primary osteoarthritis of knee Is this a current diagnosis for this admission?: No Plan: Will order PT evaluation. He was not excited about the idea of doing physical therapy. March 18, 2020 Significantly worsened by his weight. Physical therapy may be limited as well to the patient's BMI. (11) Morbid obesity with BMI of 45.0-49.9, adult Is this a current diagnosis for this admission?: No Plan: Status quo. (12) Coronary artery disease Qualifiers: Coronary Disease-Associated Artery/Lesion type: [place] artery [place] vs. transplanted heart: [place] heart Is this a current diagnosis for this admission?: No Plan: We will continue home medication regimen March 18, 2020 Juggling patient's usual medication regimen in light of blood pressure issues. No evidence of acute coronary syndrome at this time.
[2020-03-23] MEDS: HYDROCORTISONE SOD SUCCINATE INJ/PF 100 MG/2 ML SDV IV SCH ×2 (10:16→22:51)
[2020-03-23] MEDS: CARVEDILOL 12.5 MG TABLET PO SCH ×2 (10:17→22:51)
[2020-03-23] MEDS: CALCITRIOL 0.25 MCG CAPSULE PO SCH (10:17)
[2020-03-23] MEDS: TORSEMIDE 20 MG TABLET PO SCH (10:17)
[2020-03-23] MEDS: CLOPIDOGREL BISULFATE 75 MG TABLET PO SCH (10:17)
[2020-03-23] MEDS: FEBUXOSTAT 40 MG TABLET PO SCH (10:18)
[2020-03-23] MEDS: NYSTATIN TOPICAL POWDER 15 GM TP SCH ×2 (10:21→17:45)
[2020-03-23] MEDS: PANTOT AC/MIN OIL/PET HY-PHL OINT 50 GM TOP SCH ×2 (10:21→17:45)
--- NOTE | 2020-03-23 10:23 | PDOC PROGRESS REPORT ---
Subjective Progress Note for:: 03/23/20 Reason For Visit: Patient seen today in the hospital. He is definitely feeling better over the last couple of days. Improving appetite and increase intake. He denies any history of chest pain or shortness of breath as long as he is in bed. Last dialysis was on Monday which was uneventful. He has been making decent amounts of urine over the last couple of days and was on the weekend. Labs and medications were reviewed that shows improving creatinine. No features or sympt oms to indicate uremia. Physical Exam Vital Signs: Temp Pulse Resp BP Pulse Ox 97.5 F 97 21 H 140/51 H 99 03/23/20 07:45 03/23/20 07:45 03/23/20 07:45 03/23/20 07:45 03/23/20 07:45 Intake & Output 03/22/20 03/23/20 03/24/20 06:59 06:59 06:59 Intake Total 618 340 Output Total 920 1100 Balance -302 -760 Weight 157.1 kg 149.9 kg General appearance: PRESENT: no acute distress, morbidly obese Respiratory exam: PRESENT: clear to auscultation [place], decreased breath sounds. ABSENT: crackles Cardiovascular exam: PRESENT: +S1, +S2 GI/Abdominal exam: PRESENT: normal bowel sounds, soft. ABSENT: organomegaly, tenderness Extremities exam: PRESENT: pedal edema Neurological exam: PRESENT: alert, awake, oriented to person, oriented to place Psychiatric exam: PRESENT: appropriate affect Results Laboratory Results: 03/23/20 04:35 03/23/20 04:35 03/23/20 03/23/20 04:35 04:35 WBC 12.2 H RBC 2.92 L Hgb 8.6 L Hct 27.2 L MCV 93 MCH 29.3 MCHC 31.5 L RDW 15.4 H Plt Count 280 Seg Neutrophils % Not Reportable Sodium 136.6 L Potassium 5.0 Chloride 101 Carbon Dioxide 27 Anion Gap 9 BUN 106 H Creatinine 3.12 H Est GFR ( Amer) 23 L Glucose 133 H Calcium 8.2 L Magnesium 2.3 Total Bilirubin 0.4 AST 26 Alkaline Phosphatase 51 Total Protein 5.3 L Albumin 2.7 L 03/13/20 08:39 Troponin I 0.075 NT-Pro-B Natriuret Pep 7080 H Impressions: Knee X-Ray 03/12/20 23:44 IMPRESSION: Osteopenia with advanced degenerative change copyright 2010 [employer]- All Rights Reserved Chest X-Ray 03/15/20 00:00 IMPRESSION: 1. Interval placement of a right-sided central line with the tip overlying the right atrium. 2. Cardiomegaly. Mild vascular congestion. Renal Ultrasound 03/17/20 00:00 IMPRESSION: Limited study. No obvious hydronephrosis. Assessment & Plan - Diagnosis (1) Acute kidney injury superimposed on chronic kidney disease Is this a current diagnosis for this admission?: Yes Plan: Improving urine output but patient still having some fluid overload. Currently on low-dose diuretics.Today I am going to withhold any dialysis and monitor. Continue on the low-dose of diuretics. I believe he has almost reached his baseline renal functions. . (2) Hyperkalemia Is this a current diagnosis for this admission?: Yes Plan: Stable. Monitor. (3) Hypotension Qualifiers: Hypotension type: hypotension due to hypovolemia Qualified Code(s): I95.89 - Other hypotension; E86.1 - Hypovolemia Is this a current diagnosis for this admission?: Yes Plan: Currently resolved and off dopamine drip. (4) Longstanding persistent atrial fibrillation Is this a current diagnosis for this admission?: Yes Plan: Rate controlled. (5) Morbid obesity with BMI of 45.0-49.9, adult Is this a current diagnosis for this admission?: No Plan: Status quo (6) Acute on chronic diastolic (congestive) heart failure Is this a current diagnosis for this admission?: Yes Plan: Currently looks resolved. Monitor. (7) Anemia in chronic kidney disease (CKD) Qualifiers: Chronic kidney disease stage: stage 3 (moderate) Qualified Code(s): N18.3 - Chronic kidney disease, stage 3 (moderate); D63.1 - Anemia in chronic kidney disease Is this a current diagnosis for this admission?: No Plan: Stable. Will need erythropoietin as an outpatient. Will need to follow-up with Dr. Lundberg/nephrology once discharged.
[2020-03-23 13:14] LABS: PATH REVIEW PATHOLOGIST REVIEWED
[2020-03-23] MEDS: TRAMADOL HCL 50 MG TABLET PO PRN (14:13)
--- NOTE | 2020-03-23 17:02 | RADIOLOGY REPORT (SQ) ---
EXAM DESCRIPTION: CT HEAD WITHOUT IMAGES COMPLETED DATE/TIME: 03/23/2020 4:12 pm REASON FOR STUDY: altered metabolic encephalopathy COMPARISON: None available TECHNIQUE: Axial images acquired through the brain without intravenous contrast. Images reviewed wi th bone, brain and subdural windows. Additional sagittal and coronal reconstructions were generated. Images stored on PACS. All CT scanners at this facility use dose modulation, iterative reconstruction, and/or weight based d osing when appropriate to reduce radiation dose to as low as reasonably achievable (ALARA). [facility]: Dose Right [facility]: CareDose [facility]: Dose Right [facility]: Teradose 4D [facility]: Smart [employer] RADIATION DOSE: CT Rad equipment meets quality standard of care and radiation dose reduction techniq ues were employed. CTDIvol: 48.8 mGy. DLP: 1054 mGy-cm.mGy. LIMITATIONS: None. FINDINGS: VENTRICLES: Prominent. CEREBRUM: No masses. No hemorrhage. No midline shift. No evidence of large vascular territory infa rct. Nonspecific periventricular and subcortical hypoattenuation, likely sequelae of microangiopathi c disease. There is a small more focal area of hypodense density involving the paramedian left front al lobe (series 2, image 29). No mass effect or midline shift. CEREBELLUM: No masses. No hemorrhag e. No alteration of density. No evidence for acute infarction. EXTRAAXIAL SPACES: Age-related involutional change. No fluid collections. No masses. ORBITS AND GLOBE: No intra- or extraconal masses. Normal contour of globe without masses. Prior cat aract surgery. CALVARIUM: No fracture. PARANASAL SINUSES: No fluid or mucosal thickening. SOFT TISSUES: No mass or hematoma. OTHER: No other significant finding. IMPRESSION: 1. No evidence of intracranial hemorrhage. 2. Small focal area of hypoattenuation involving the left frontal centrum semiovale compatible with lacunar infarct, age indeterminate even lack of priors. Additional nonspecific white matter changes, likely sequelae of microangiopathic disease. EVIDENCE OF ACUTE STROKE: Age-indeterminate lacunar left frontal lobe. Findings discussed with Dr. Duffy 1645 hours on 03/23/2020. TECHNICAL DOCUMENTATION: JOB ID: [id number] Quality ID # [id number]: Final reports with documentation of one or more dose reduction techniques (e.g., Au tomated exposure control, adjustment of the mA and/or kV according to patient size, use of iterative reconstruction technique) 2010 [employer]- All Rights Reserved Reading location - IP/workstation name: [email or web address]
[2020-03-23] MEDS ORDERED: DEXTROSE 40% GEL 15 GM TUBE PO PRN ×2 (17:03)
[2020-03-23] MEDS ORDERED: DEXTROSE 50%-WATER 25 GM/50 ML DISP.SYRIN IV PRN ×2 (17:03)
[2020-03-23] MEDS ORDERED: GLUCAGON,HUMAN RECOMB 1 MG INJ SUBCUT PRN (17:03)
[2020-03-23] MEDS: ATORVASTATIN CALCIUM 40 MG TABLET PO SCH (22:51)
--- NOTE | 2020-03-23 22:51 | RADIOLOGY REPORT (SQ) ---
EXAM DESCRIPTION: MRI of the brain without gadolinium CLINICAL HISTORY: 80 years Male; stroke fall one week ago. New onset of right facial droop. Confused and dizzy. TECHNIQUE: Routine noncontrast MRI brain protocol COMPARISON: None. FINDINGS: Diffusion: A moderate-sized area of restricted diffusion is noted in the posterior right frontal and superior temporal lobe. This involves the cortical lofton matter and the subcortical white matter. The area measures approximately 3.5 x 3.4 cm in cross-sectional diameter and has restricted diffusion and decreased signal on ADC mapping indicating late hyperacute/acute stroke. Subtle changes of edema are also seen on the FLAIR and T2-weighted images. Brain: Diffuse global volume loss is noted with prominence of ventricles, sulci and CSF spaces. No mass lesion. No midline shift. No abnormal extra-axial fluid collections. Extensive increased signal seen throughout the periventricular white matter bilaterally suggesting small vessel ischemic disease. Skull: Calvarial marrow is normal. Orbits and paranasal sinuses: Paranasal sinuses and mastoid air cells are clear. Visualized portions of the orbits are normal. Vessels: Normal flow-voids are seen in the major intracranial arteries. IMPRESSION: Area of hyperacute/acute stroke in the left posterior frontal and superior temporal region. Diffuse global volume loss with extensive white matter changes suggesting small vessel ischemic disease.
[2020-03-24] MEDS: HEPARIN SOD (PORCINE) 5,000 UNIT/ML 1 ML VIAL SUBCUT SCH ×3 (05:46→21:50)
[2020-03-24 07:59] LABS: CHOLESTEROL 82.66 mg/dL (0-200); TRIGLYCERIDES 111 mg/dL (<150)
[2020-03-24 08:00] LABS: ALBUMIN 2.9 g/dL (3.5-5.0); ALKALINE PHOSPHATASE 51 U/L (38-126); ANION GAP 6 (5-19); ASPARTATE AMINO TRANSFERASE 30 U/L (17-59); BILIRUBIN,TOTAL 0.4 mg/dL (0.2-1.3); BLOOD UREA NITROGEN 113 mg/dL (7-20); CALCIUM 8.6 mg/dL (8.4-10.2); CARBON DIOXIDE 29 mmol/L (22-30); CHLORIDE 103 mmol/L (98-107); GLUCOSE 116 mg/dL (75-110); POTASSIUM 5.2 mmol/L (3.6-5.0); TOTAL PROTEIN 5.5 g/dL (6.3-8.2)
[2020-03-24 08:10] LABS: DIRECT LDL 31 mg/dL (<100)
--- NOTE | 2020-03-24 08:51 | PDOC PROGRESS REPORT ---
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 He says he normally gets around in a scooter inside the house on the bottom floor, and when he has to go up some short stairs he uses an office chair with wheels to get around upstairs. It is not clear if he was c oming up the stairs or going down the stairs, but at some point he fell and landed on both of his knees. This is the reason he was brought in. Multiple plain films show a lot of arthritis but no acute fractures. While he was here he started complaining of shortness of breath and was hypoxemic. His blood pressure was also high because he is not taking any of his medications this morning. He does not know who his inpatient coder is. He does not know if he has a history of congestive heart failure but he does take torsemide at home, which he says is because he gets swelling in his legs intermittently. He has been able to lay down flat at home. He is not been having any fevers. No cough. He mostly gets short of breath with exertion but he is obviously very deconditioned and this complicates his clinical picture. He had to get put on BiPAP for a little while in the ER and this improved his breathing. He does not wear oxygen at home. He appeared to have some bilateral edema on chest x-ray. 03/14/20--No adverse events overnight. He is off BiPAP and back on the nasal cannula. Breathing has been comfortable. We talked about doing some physical therapy but he was not terribly excited about the idea of that. 03/15/20-His blood pressure was low this morning. His creatinine was worse. He was awake but he seemed very subdued. ABG showed a respiratory acidosis. Dr. Abdullahi came in and put in a central line. We gave him some fluids and his blood pressure has improved some but is still pretty low. We put him on BiPAP and have had to encourage him to take deep breaths. 03/16/20-Incredibly, Mr. Burnett actually looks better today. His blood pressure has improved and he is more awake. His CO2 has improved a little bit but his pH is still low. His bicarbonate is actually within the normal range on his blood gas. His creatinine has at least stabilized but he is still not put out any urine. 03/17-No adverse events overnight. He is improved substantially. He had di alysis yesterday. He is putting out urine through the Matt catheter now. He is on a nasal cannula. His blood pressures have improved. 03/18/20-The patient had hemodialysis in the ICU earlier today. He is currently on a nasal cannula. There is somewhat confusing listening to him talk as he is trying to convey this started recent hallucinations and he does not do a good job of distinguishing reality from the hallucinations but clearly he understands that there were not hallucinations. I am not sure of the etiology. It is most likely hypercapnia at that he exhibited over the last week 03/19/2020-no acute events in the last 24 hours. Blood pressure is 130/62 dopamine drip is discontinued. Comfortably in the bed communicating well. Creatinine improved to 3.87 after dialysis yesterday. Today's CBC is pending. Patient agreeable for rehab facility placement if needed. 03/20/2020-patient is comfortably in the bed communicating well. Requesting for arthritis medication. Nephrology follow-up is pending he may go for dialysis today. Obese male comfortably in the bed not in distress. 03/21/[birth year]90-82-idek-old male admitted with acute hypoxic respiratory failure which was resolved also admitted with acute on chronic kidney injury receiving dialysis on as-needed basis last session of dialysis is yesterday. He was also hypotensive during the hospital stay requiring dopamine drip and IV fluids. Presently blood pressure is 140/70 off the dopamine drip and off the IV fluids. Patient waiting for placement. Physical therapy working with the patient. Pulse ox is 97% on 3 L. Comfortably in the bed communicating well. 03/22/20-patient is doing well this morning. Yesterday evening patient became hypotensive complaining of dizziness and lightheadedness. Given 500 cc of normal saline blood pressure improved back up. This morning alert awake oriented communicating well. Not in distress. Patient is waiting for placement. 03/23/2020-no acute events in the last 24 hours. Afebrile. Comfortably in the bed, communicating well. Creatinine improved to 3.12 today. Urinary output is good. WBC count improved to 12,200. Afebrile. Denies any complaints. 03/24/2020-noticed changes in the mental status yesterday with confusion and drooping of the right side of the face we did a CT head it indicates a small left-sided lacunar infarct MRI was done it indicates a large acute stroke involving the left posterior frontal and superior temporal region. This morning patient is still confused and unable to respond verbally. But is able to move upper and lower extremities without any problems he is following the commands. Plan of care discussed with the patient's son he agreed with hospice at this time. He is also is going to speak to his aunt in [place] and call me back if he has any questions. Overall prognosis poor. Patient CODE STATUS now is DNR/DNI. Reason For Visit: ACUTE HYPOXIC RESPIRATORY FAILURE, ACUTE CHF, HYPE Physical Exam Vital Signs: Temp Pulse Resp BP Pulse Ox 97.6 F 65 16 112/52 L 100 03/24/20 07:49 03/24/20 07:49 03/24/20 07:49 03/24/20 07:49 03/24/20 07:49 Intake & Output 03/23/20 03/24/20 03/25/20 06:59 06:59 06:59 Intake Total 340 500 Output Total 1100 1225 Balance -760 -725 Weight 149.9 kg 155.8 kg General appearance: PRESENT: mild distress, well-developed Head exam: PRESENT: atraumatic Eye exam: PRESENT: PERRLA Ear exam: PRESENT: normal external ear exam Mouth exam: PRESENT: neck supple Teeth exam: PRESENT: poor dentation Neck exam: ABSENT: carotid bruit, JVD, lymphadenopathy, thyromegaly Respiratory exam: PRESENT: decreased breath sounds Cardiovascular exam: PRESENT: RRR. ABSENT: diastolic murmur, rubs, systolic murmur GI/Abdominal exam: PRESENT: normal bowel sounds, soft. ABSENT: distended, guarding, mass, organolmegaly, rebound, tenderness Rectal exam: PRESENT: deferred Extremities exam: PRESENT: full ROM. ABSENT: calf tenderness, clubbing, pedal edema Neurological exam: PRESENT: altered, other - Patient is confused unable to verbalize but following the commands. On examination right facial droop is seen. Power in the upper and lower extremities normal. Psychiatric exam: PRESENT: appropriate affect, normal mood. ABSENT: homicidal ideation, suicidal ideation Results Laboratory Results: 03/24/20 05:45 03/24/20 03/24/20 05:45 05:45 Sodium 138.2 Potassium 5.2 H Chloride 103 Carbon Dioxide 29 Anion Gap 6 BUN 113 H Creatinine 3.13 H Est GFR ( Amer) 23 L Glucose 116 H Calcium 8.6 Magnesium 2.4 H Total Bilirubin 0.4 AST 30 Alkaline Phosphatase 51 Total Protein 5.5 L Albumin 2.9 L Triglycerides 111 Cholesterol 82.66 LDL Cholesterol Direct 31 VLDL Cholesterol 22.0 HDL Cholesterol 38 L 03/13/20 08:39 Troponin I 0.075 NT-Pro-B Natriuret Pep 7080 H Impressions: Knee X-Ray 03/12/20 23:44 IMPRESSION: Osteopenia with advanced degenerative change copyright 2011 [employer]- All Rights Reserved Chest X-Ray 03/15/20 00:00 IMPRESSION: 1. Interval placement of a right-sided central line with the tip overlying the right atrium. 2. Cardiomegaly. Mild vascular congestion. Renal Ultrasound 03/17/20 00:00 IMPRESSION: Limited study. No obvious hydronephrosis. Head CT 03/23/20 00:00 IMPRESSION: 1. No evidence of intracranial hemorrhage. 2. Small focal area of hypoattenuation involving the left frontal centrum semiovale compatible with lacunar infarct, age indeterminate even lack of priors. Additional nonspecific white matter changes, likely sequelae of microangiopathic disease. EVIDENCE OF ACUTE STROKE: Age-indeterminate lacunar left frontal lobe. Findings discussed with Dr. Duffy 1645 hours on 03/23/2020. Head MRI 03/23/20 00:00 IMPRESSION: Area of hyperacute/acute stroke in the left posterior frontal and superior temporal region. Diffuse global volume loss with extensive white matter changes suggesting small vessel ischemic disease. Assessment and Plan - Diagnosis (1) Hypotension Qualifiers: Hypotension type: hypotension due to hypovolemia Qualified Code(s): I95.89 - Other hypotension; E86.1 - Hypovolemia Is this a current diagnosis for this admission?: Yes Plan: We have had him on some fluids and a dopamine drip. We are starting to turn down the dopamine now because his blood pressure is recovering. March 18, 2020 The patient just returned from hemodialysis. We are trying to taper off of the dopamine drip. Blood pressures appear to be improving. Normally he is hypertensive. Still holding some of his other antihypertensive medications. We will add back when appropriate. 03/19/2020 hypotension is resolved. Off the IV fluids and off the dopamine drip. Blood pressure is 137/62. Plan is to closely monitor the blood pressures at this time. 03/20/2020-blood pressure today is 140/67. Not on IV fluids not on dopamine drip. 03/21/2020-blood pressure today is 140/70. Stable. Not on IV fluids not on dopamine drip. 03/22/2020-blood pressure today is 147/64. Stable. 03/23/2020-blood pressure today is 141/60. Stable. Not on IV fluids not on dopamine drip at this time. 03/24/2020-blood pressure today is 138/60. Stable. (2) Acute kidney injury superimposed on chronic kidney disease Is this a current diagnosis for this admission?: Yes Plan: pt is getting dialysis and as needed basis. last dialysis session yesterday. Latest serum creatinine is 3.35. Improving. 03/22/2020-serum creatinine today is 3.21 continue to improve on daily basis. 03/23/2021-serum creatinine today 3.1. Improving. 03/24/2020-creatinine today is 3.12. Stable. (3) Atrial fibrillation Qualifiers: Atrial fibrillation type: unspecified Qualified Code(s): I48.91 - Unspecified atrial fibrillation Is this a current diagnosis for this admission?: No Plan: Rate is controlled, continue beta-hugh. We will have to consider anticoagulation after assessing his fall risk. 03/19/2020-patient has a longstanding atrial fibrillation. Heart rate is 78 today. Recently on Coreg 25 mg p.o. twice a day. Not on anticoagulation. Not on anticoagulation because he is at high risk for fall. 03/20/2020-patient's heart rate is around 65. History of paroxysmal atrial fibrillation. Presently on Coreg 25 mg p.o. twice a day he is not on anticoagulation because of high risk for fall. 03/22/2020-patient has history of paroxysmal atrial fibrillation presently on Coreg 12.5 mg p.o. twice daily heart rate in the 50s. In sinus rhythm. 03/23/2020-patient is on Coreg 12.5 mg p.o. twice a day heart rate in the 70s. In A. fib with rate control. 03/24/2020-patient has history of chronic atrial fibrillation not on anticoagulation because of high risk for bleed because of the high risk of falls. Heart rate 86 in sinus rhythm. (4) Hyperkalemia Is this a current diagnosis for this admission?: Yes Plan: Improved after hemodialysis March 18, 2020 I will check serum potassium tomorrow. I believe dialysis will be removed enough potassium to get the patient back in the normal range. Continue to monitor electrolytes. 03/19/2020-patient has a dialysis session yesterday. Serum potassium normalized to 4.9. Patient will be on low potassium diet. 03/20/2020-serum potassium is 4.9, hyperkalemia is resolved. 03/21/2020-serum potassium today is 4.8. Stable. Hyperkalemia is resolved. 03/22/2020-serum potassium today 4.9 hyperkalemia resolved. 03/23/2020-serum potassium today is 5.0. Within normal limits. Plan is to closely monitor the serum potassium at this time. 03/24/2020-serum potassium is 5.2. Slightly above the normal limit. Patient is n.p.o. at this time. (5) Acute on chronic diastolic (congestive) heart failure Is this a current diagnosis for this admission?: Yes Plan: He will need medical optimization. He does not appear to be in acute failure at this time. Diuretics held because of blood pressure and renal function. He only got 2 doses of Lasix. Echocardiogram shows a preserved ejection fraction, some mild pulmonary hypertension and mild aortic stenosis. March 18, 2020 Fluid management with dialysis and eventually diuretics. Defer hemodialysis treatment decisions to nephrology. 03/19/2020-echocardiogram indicates normal ejection fraction with associated mild pulmonary hypertension and mild aortic stenosis. Patient has a dialysis session yesterday on examination this morning is not in fluid overload. IV fluids are discontinued dopamine drip is discontinued. Patient is started on torsemide 20 mg p.o. daily by Dr. Lundberg. 03/20/2020-blood pressure today is 140/57. Echocardiogram indicates normal EF. He has pulmonary hypertension and mild aortic stenosis. Presently on torsemide 20 mg p.o. daily. 03/21/2020-patient went for the dialysis today 1.5 L of fluid is removed. Patient is presently on torsemide 20 mg p.o. daily. Volume status is improving. 03/21/2020-blood pressure this morning is 147/64 on torsemide 10 mg daily and Coreg 12.5 mg p.o. twice daily. Yesterday evening blood pressure is low systolic blood pressure is around 100 given 500 cc of normal saline bolus. Blood pressures promptly improved. Today patient is asymptomatic. 03/23/2020-blood pressure today is 145/60 slight edema present in the both feet. Chest bilateral entry was decreased no wheezing no crepitations. On torsemide 10 mg p.o. daily. urinary output is good. 03/24/2020-patient is n.p.o. except for medications due to the new stroke. Not in fluid overload at the time of examination. (6) Acute on chronic respiratory failure with hypoxia and hypercapnia Is this a current diagnosis for this admission?: Yes Plan: March 18, 2020 Blood gas yesterday shows continued improvement in the patient's PCO2. It is below 55. He may likely be at his baseline. Wean BiPAP machine is still in his room. He is currently on nasal cannula. We will try to keep oxygen saturation around 90% to 94% 03/19/2020-pulse ox today is 99% on 4 L. Patient is refusing to wear the BiPAP. Plan is to continue the present management at this time. In the ABGs PCO2 is elevated most likely secondary to CO2 retention with morbid obesity. Most likely patient has obstructive sleep apnea. 03/20/2020-pulse ox today is 99% on 3 L. Comfortably in the bed communicating well. Hypoxia and hypercapnia resolving. 03/21/2020-pulse ox today is 97% on 3 L. Comfortable in the bed communicating well. Not in respiratory distress. 03/22/2020-patient is comfortably sleeping in the bed laying flat not in distress. Pulse ox is 99% on 3 L. 03/23/2020-pulse ox is 98% on 3 L. Comfortably in the bed communicating well. Denies any chest tightness or wheezing. (7) Anemia in chronic kidney disease (CKD) Qualifiers: Chronic kidney disease stage: stage 3 (moderate) Qualified Code(s): N18.3 - Chronic kidney disease, stage 3 (moderate); D63.1 - Anemia in chronic kidney disease Is this a current diagnosis for this admission?: No Plan: Hemoglobin stable, continue to monitor March 18, 2020 Iron and erythropoietin per nephrology. Continue to monitor hemoglobin. Slight dip to 8.4 today. Recheck tomorrow. 03/19/2020-patient's hemoglobin is 8.4 anemia of chronic disease most likely secondary to underlying CKD. 03/20/2020-patient hemoglobin today is 8.4. Stable. 03/21/2020-hemoglobin today is 8.8. Stable. 03/22/20-latest hemoglobin is 8.5. Stable. Plan is to closely monitor the labs on daily basis. 03/23/2020-hemoglobin today is 8.6 stable. (8) Hypertensive urgency Is this a current diagnosis for this admission?: Yes Plan: Blood pressures have improved after resuming his home medications. They are on hold for now because of hypotension. 03/18/2020 Went home medications were resumed and blood pressure began to decrease. Eventually it became tomorrow he is now on dopamine. Continue to monitor closely and adjust medications accordingly. 03/20/2020-blood pressure today is 140/67. On torsemide 20 mg p.o. daily. He is off dopamine drip and off IV fluids at this time. 03/21/2020-blood pressure today is 140/70 hypertensive emergency resolved. 03/22/2020-blood pressure today is 147/64 stable. 03/23/2020-blood pressure today is 145/60 stable. 03/24/2020-blood pressure today is 140/60. Stable. (9) Fall Qualifiers: Encounter type: initial encounter Qualified Code(s): W19.XXXA - Unspecified fall, initial encounter Is this a current diagnosis for this admission?: Yes Plan: PT evaluation pending more clinical improvement March 18, 2020 Physical therapy to evaluate when patient is more stable. 03/19/2020-patient is receiving Ultram 50 mg p.o. every 6 hours physical therapy working with the patient. Patient agreed to go to a rehab facility if necessary. 03/20/20--physical therapy is working with the patient. Plan is to send him to long-term care facility. (10) Degenerative arthritis of knee, bilateral Qualifiers: Osteoarthritis type: unspecified Qualified Code(s): M17.0 - Bilateral primary osteoarthritis of knee Is this a current diagnosis for this admission?: No Plan: Will order PT evaluation. He was not excited about the idea of doing physical therapy. March 18, 2020 Significantly worsened by his weight. Physical therapy may be limited as well to the patient's BMI. (11) Morbid obesity with BMI of 45.0-49.9, adult Is this a current diagnosis for this admission?: No Plan: Status quo. (12) Coronary artery disease Qualifiers: Coronary Disease-Associated Artery/Lesion type: stebbins artery [place] vs. transplanted heart: stebbins heart Is this a current diagnosis for this admission?: No Plan: We will continue home medication regimen March 18, 2020 Juggling patient's usual medication regimen in light of blood pressure issues. No evidence of acute coronary syndrome at this time. (13) Stroke Is this a current diagnosis for this admission?: Yes Plan: 03/24/2020-patient has new onset stroke. Confirmed by MRI. Patient is confused unable to respond properly. On examination power in upper and lower extremities within normal limits.
[2020-03-24] MEDS: CARVEDILOL 12.5 MG TABLET PO SCH ×2 (09:57→21:48)
[2020-03-24] MEDS: HYDROCORTISONE SOD SUCCINATE INJ/PF 100 MG/2 ML SDV IV SCH ×2 (09:58→21:49)
[2020-03-24] MEDS: TORSEMIDE 20 MG TABLET PO SCH (09:58)
[2020-03-24] MEDS: CLOPIDOGREL BISULFATE 75 MG TABLET PO SCH (09:58)
[2020-03-24] MEDS: ASPIRIN 81 MG TABLET, CHEWABLE PO SCH (09:58)
[2020-03-24] MEDS ORDERED: CLOPIDOGREL BISULFATE 75 MG TABLET PO SCH (10:00)
[2020-03-24] MEDS: PANTOT AC/MIN OIL/PET HY-PHL OINT 50 GM TOP SCH ×2 (10:03→18:53)
[2020-03-24] MEDS: CALCITRIOL 0.25 MCG CAPSULE PO SCH (10:04)
[2020-03-24] MEDS: FEBUXOSTAT 40 MG TABLET PO SCH (10:04)
[2020-03-24 10:09] LABS: HEMATOCRIT 29.6 % (37.9-51.0); HEMOGLOBIN 9.4 g/dL (13.5-17.0); MEAN CORPUSCULAR HEMOGLOBIN 29.6 pg (27.0-33.4); MEAN CORPUSCULAR HGB CONC 31.9 g/dL (32.0-36.0); MEAN CORPUSCULAR VOLUME 93 fl (80-97); PLATELET COUNT 292 10^3/uL (150-450); RED BLOOD COUNT 3.19 10^6/uL (4.35-5.55); RED CELL DISTRIBUTION WIDTH 15.4 % (11.5-14.0)
[2020-03-24 11:18] LABS: ABSOLUTE LYMPHOCYTES# (MANUAL) 1.4 10^3/uL (0.5-4.7); ABSOLUTE MONOCYTES # (MANUAL) 0.7 10^3/uL (0.1-1.4); BAND NEUTROPHILS % (MANUAL) 2 % (3-5); BASOPHILS % (MANUAL) 0 % (0-2); EOSINOPHILS % (MANUAL) 0 % (0-6); LYMPHOCYTES % (MANUAL) 11 % (13-45); METAMYELOCYTES % (MANUAL) 1 % (0-1); MONOCYTES % (MANUAL) 5 % (3-13); NUCLEATED RED BLOOD CELLS 1 /100 WBC (0); SEGMENTED NEUTROPHILS % (MAN) 81 % (42-78); TOTAL CELLS COUNTED 100
[2020-03-24 11:20] LABS: POLYCHROMASIA 1+
[2020-03-24 11:21] LABS: ANISOCYTOSIS SLIGHT; OVALOCYTES 1+; POIKILOCYTOSIS 1+
[2020-03-24 11:22] LABS: PLATELET COMMENT ADEQUATE; TEAR DROP CELLS SLIGHT
[2020-03-24] MEDS: PATIROMER 8.4 GM SUSP PACKET PO SCH (18:53)
--- NOTE | 2020-03-24 20:33 | PDOC PROGRESS REPORT ---
Subjective Progress Note for:: 03/24/20 Reason For Visit: Patient seen today in the hospital. He generally feels better and feels like he is improving on a daily basis. He denies any history of chest pains or shortness of breath unless he exerts a lot. Appetite is clearly improving. No history of nausea vomiting. His last dialysis was last Monday. Labs and medications were reviewed that shows his creatinine is stable. He is nonoliguric. Physical Exam Vital Signs: Temp Pulse Resp BP Pulse Ox 97.8 F 69 15 128/59 H 100 03/24/20 15:38 03/24/20 18:00 03/24/20 18:00 03/24/20 18:00 03/24/20 18:00 Intake & Output 03/23/20 03/24/20 03/25/20 06:59 06:59 06:59 Intake Total 340 500 0 Output Total 1100 1225 800 Balance -760 -725 -800 Weight 149.9 kg 155.8 kg General appearance: PRESENT: no acute distress Respiratory exam: PRESENT: clear to auscultation [place], decreased breath sounds. ABSENT: crackles Cardiovascular exam: PRESENT: +S1, +S2 GI/Abdominal exam: PRESENT: normal bowel sounds, soft. ABSENT: organomegaly, tenderness Extremities exam: PRESENT: pedal edema Neurological exam: PRESENT: alert, awake, oriented to person, oriented to place Psychiatric exam: PRESENT: appropriate affect Results Laboratory Results: 03/24/20 09:48 03/24/20 05:45 03/24/20 03/24/20 03/24/20 05:45 05:45 09:48 WBC 13.0 H RBC 3.19 L Hgb 9.4 L Hct 29.6 L MCV 93 MCH 29.6 MCHC 31.9 L RDW 15.4 H Plt Count 292 Seg Neutrophils % Not Reportable Sodium 138.2 Potassium 5.2 H Chloride 103 Carbon Dioxide 29 Anion Gap 6 BUN 113 H Creatinine 3.13 H Est GFR ( Amer) 23 L Glucose 116 H Calcium 8.6 Magnesium 2.4 H Total Bilirubin 0.4 AST 30 Alkaline Phosphatase 51 Total Protein 5.5 L Albumin 2.9 L Triglycerides 111 Cholesterol 82.66 LDL Cholesterol Direct 31 VLDL Cholesterol 22.0 HDL Cholesterol 38 L 03/13/20 08:39 Troponin I 0.075 NT-Pro-B Natriuret Pep 7080 H Impressions: Knee X-Ray 03/12/20 23:44 IMPRESSION: Osteopenia with advanced degenerative change copyright 2011 [employer]- All Rights Reserved Chest X-Ray 03/15/20 00:00 IMPRESSION: 1. Interval placement of a right-sided central line with the tip overlying the right atrium. 2. Cardiomegaly. Mild vascular congestion. Renal Ultrasound 03/17/20 00:00 IMPRESSION: Limited study. No obvious hydronephrosis. Head CT 03/23/20 00:00 IMPRESSION: 1. No evidence of intracranial hemorrhage. 2. Small focal area of hypoattenuation involving the left frontal centrum semiovale compatible with lacunar infarct, age indeterminate even lack of priors. Additional nonspecific white matter changes, likely sequelae of microangiopathic disease. EVIDENCE OF ACUTE STROKE: Age-indeterminate lacunar left frontal lobe. Findings discussed with Dr. Duffy 1645 hours on 03/23/2020. Head MRI 03/23/20 00:00 IMPRESSION: Area of hyperacute/acute stroke in the left posterior frontal and superior temporal region. Diffuse global volume loss with extensive white matter changes suggesting small vessel ischemic disease. Assessment & Plan - Diagnosis (1) Acute kidney injury superimposed on chronic kidney disease Is this a current diagnosis for this admission?: Yes Plan: Improving urine output but patient still having some fluid overload. Currently on low-dose diuretics.Will continue to withhold any dialysis and monitor. Continue on the low-dose of diuretics. I believe he has almost reached his baseline renal functions.If he remains stable like this he could be discharged from a renal point of view and follow-up with Dr. Lundberg as an outpatient. (2) Hyperkalemia Is this a current diagnosis for this admission?: Yes Plan: Mild and looks rather unstable. We will start him on [place]. Monitor. (3) Hypotension Qualifiers: Hypotension type: hypotension due to hypovolemia Qualified Code(s): I95.89 - Other hypotension; E86.1 - Hypovolemia Is this a current diagnosis for this admission?: Yes Plan: Currently resolved and off dopamine drip. (4) Longstanding persistent atrial fibrillation Is this a current diagnosis for this admission?: Yes Plan: Rate controlled. (5) Morbid obesity with BMI of 45.0-49.9, adult Is this a current diagnosis for this admission?: No Plan: Status quo (6) Acute on chronic diastolic (congestive) heart failure Is this a current diagnosis for this admission?: Yes Plan: Currently looks resolved. Monitor. (7) Anemia in chronic kidney disease (CKD) Qualifiers: Chronic kidney disease stage: stage 3 (moderate) Qualified Code(s): N18.3 - Chronic kidney disease, stage 3 (moderate); D63.1 - Anemia in chronic kidney disease Is this a current diagnosis for this admission?: No Plan: Stable. Will need erythropoietin as an outpatient. Will need to follow-up with Dr. Lundberg/nephrology once discharged.
[2020-03-24] MEDS: HYDRALAZINE HCL INJ/PF 20 MG/1 ML SDV IV PRN (20:56)
[2020-03-24] MEDS: ATORVASTATIN CALCIUM 40 MG TABLET PO SCH (21:48)
[2020-03-25] MEDS: HEPARIN SOD (PORCINE) 5,000 UNIT/ML 1 ML VIAL SUBCUT SCH ×3 (06:06→22:35)
[2020-03-25 07:35] LABS: ANION GAP 7 (5-19); BLOOD UREA NITROGEN 118 mg/dL (7-20); CALCIUM 8.9 mg/dL (8.4-10.2); CARBON DIOXIDE 28 mmol/L (22-30); CHLORIDE 105 mmol/L (98-107); GLUCOSE 117 mg/dL (75-110); POTASSIUM 5.2 mmol/L (3.6-5.0)
[2020-03-25] MEDS: CLOPIDOGREL BISULFATE 75 MG TABLET PO SCH (09:29)
[2020-03-25] MEDS: FEBUXOSTAT 40 MG TABLET PO SCH (09:29)
[2020-03-25] MEDS: TORSEMIDE 20 MG TABLET PO SCH (09:29)
[2020-03-25] MEDS: CALCITRIOL 0.25 MCG CAPSULE PO SCH (09:29)
[2020-03-25] MEDS: CARVEDILOL 12.5 MG TABLET PO SCH ×2 (09:29→22:34)
[2020-03-25] MEDS: ASPIRIN 81 MG TABLET, CHEWABLE PO SCH (09:30)
[2020-03-25] MEDS: HYDROCORTISONE SOD SUCCINATE INJ/PF 100 MG/2 ML SDV IV SCH (09:30)
[2020-03-25] MEDS: PANTOT AC/MIN OIL/PET HY-PHL OINT 50 GM TOP SCH ×2 (09:31→17:52)
--- NOTE | 2020-03-25 16:14 | PDOC PROGRESS REPORT ---
Subjective Progress Note for:: 03/25/20 Reason For Visit: He is feeling great. Good appetite without any nausea vomiting. Denies chest pain or shortness of breath. Good urine output. No signs of uremia. Labs and medications reviewed shows increasing BUN as to dropping creatinine. Discussions done with the treating nurse. Physical Exam Vital Signs: Temp Pulse Resp BP Pulse Ox 97.6 F 63 18 156/71 H 100 03/25/20 07:40 03/25/20 14:00 03/25/20 09:38 03/25/20 09:38 03/25/20 09:38 Intake & Output 03/24/20 03/25/20 03/26/20 06:59 06:59 06:59 Intake Total 500 0 Output Total 1225 1450 Balance -725 -1450 Weight 155.8 kg 154 kg General appearance: PRESENT: no acute distress Respiratory exam: PRESENT: clear to auscultation [place], decreased breath sounds. ABSENT: crackles Cardiovascular exam: PRESENT: +S1, +S2 GI/Abdominal exam: PRESENT: normal bowel sounds, soft. ABSENT: organomegaly, tenderness Extremities exam: PRESENT: pedal edema Neurological exam: PRESENT: alert, awake, oriented to person, oriented to place Psychiatric exam: PRESENT: appropriate affect Results Laboratory Results: 03/24/20 09:48 03/25/20 06:00 03/25/20 06:00 Sodium 139.8 Potassium 5.2 H Chloride 105 Carbon Dioxide 28 Anion Gap 7 BUN 118 H Creatinine 2.83 H Est GFR ( Amer) 26 L Glucose 117 H Calcium 8.9 03/13/20 08:39 Troponin I 0.075 NT-Pro-B Natriuret Pep 7080 H Impressions: Knee X-Ray 03/12/20 23:44 IMPRESSION: Osteopenia with advanced degenerative change copyright 2011 [employer]- All Rights Reserved Chest X-Ray 03/15/20 00:00 IMPRESSION: 1. Interval placement of a right-sided central line with the tip overlying the right atrium. 2. Cardiomegaly. Mild vascular congestion. Renal Ultrasound 03/17/20 00:00 IMPRESSION: Limited study. No obvious hydronephrosis. Head CT 03/23/20 00:00 IMPRESSION: 1. No evidence of intracranial hemorrhage. 2. Small focal area of hypoattenuation involving the left frontal centrum semiovale compatible with lacunar infarct, age indeterminate even lack of priors. Additional nonspecific white matter changes, likely sequelae of micr oangiopathic disease. EVIDENCE OF ACUTE STROKE: Age-indeterminate lacunar left frontal lobe. Findings discussed with Dr. Duffy 1645 hours on 03/23/2020. Head MRI 03/23/20 00:00 IMPRESSION: Area of hyperacute/acute stroke in the left posterior frontal and superior temporal region. Diffuse global volume loss with extensive white matter changes suggesting small vessel ischemic disease. Assessment & Plan - Diagnosis (1) Acute kidney injury superimposed on chronic kidney disease Is this a current diagnosis for this admission?: Yes Plan: Improving urine output Has improving renal numbers but for rising BUN which I believe is secondary to the steroids. He needs to have his steroids cut back. Patient can be discharged from a renal standpoint and follow-up with Dr. Lundberg as an outpatient in 2 weeks time with CBC and chemistry and urine analysis. (2) Hyperkalemia Is this a current diagnosis for this admission?: Yes Plan: Mild and looks rather unstable. We will start him on Veltassa. Monitor. (3) Hypotension Qualifiers: Hypotension type: hypotension due to hypovolemia Qualified Code(s): I95.89 - Other hypotension; E86.1 - Hypovolemia Is this a current diagnosis for this admission?: Yes Plan: Currently resolved and off dopamine drip. (4) Longstanding persistent atrial fibrillation Is this a current diagnosis for this admission?: Yes Plan: Rate controlled. (5) Morbid obesity with BMI of 45.0-49.9, adult Is this a current diagnosis for this admission?: No (6) Acute on chronic diastolic (congestive) heart failure Is this a current diagnosis for this admission?: Yes Plan: Currently looks resolved. Monitor. (7) Anemia in chronic kidney disease (CKD) Qualifiers: Chronic kidney disease stage: stage 3 (moderate) Qualified Code(s): N18.3 - Chronic kidney disease, stage 3 (moderate); D63.1 - Anemia in chronic kidney disease Is this a current diagnosis for this admission?: No Plan: Stable. Will need erythropoietin as an outpatient. Will need to follow-up with Dr. Lundberg/nephrology once discharged.
--- NOTE | 2020-03-25 17:34 | PDOC PROGRESS REPORT ---
Subjective Progress Note for:: 03/25/20 Subjective:: The patient is resting in bed. No acute complaints. Speech therapy did evaluate the patient and he is on a trial of pured with nectar thick liquids. He does not appear to be in any discomfort. Reason For Visit: ACUTE HYPOXIC RESPIRATORY FAILURE, ACUTE CHF, HYPE Physical Exam Vital Signs: Temp Pulse Resp BP Pulse Ox 97.6 F 63 18 156/71 H 100 03/25/20 07:40 03/25/20 14:00 03/25/20 09:38 03/25/20 09:38 03/25/20 09:38 Intake & Output 03/24/20 03/25/20 03/26/20 06:59 06:59 06:59 Intake Total 500 0 Output Total 1225 1450 Balance -725 -1450 Weight 155.8 kg 154 kg General appearance: PRESENT: no acute distress, cooperative, morbidly obese Head exam: PRESENT: atraumatic, normocephalic Eye exam: PRESENT: conjunctiva pale. ABSENT: scleral icterus Ear exam: PRESENT: normal external ear exam. ABSENT: bleeding, drainage Mouth exam: PRESENT: moist Respiratory exam: PRESENT: clear to auscultation [place] - Anteriorly, symmetrical, unlabored. ABSENT: accessory muscle use, rales, rhonchi, tachypnea, wheezes Cardiovascular exam: PRESENT: irregular rhythm. ABSENT: diastolic murmur, systolic murmur GI/Abdominal exam: PRESENT: normal bowel sounds, soft, other - Pendulous abdomen. ABSENT: tenderness Rectal exam: PRESENT: deferred Gentrourinary exam: PRESENT: indwelling catheter Extremities exam: ABSENT: pedal edema Musculoskeletal exam: PRESENT: normal inspection. ABSENT: ambulatory Neurological exam: PRESENT: alert, altered - Can follow simple commands but unable to carry on complex conversation, awake, oriented to person - Responds to his name, motor sensory deficit - 4/5 and symmetric in all extremities, other - Right facial droop Psychiatric exam: PRESENT: flat affect. ABSENT: agitated, anxious Focused psych exam: ABSENT: delusional, paranoid, restlessness Skin exam: PRESENT: dry, pallor, warm. ABSENT: rash Results Laboratory Results: 03/24/20 09:48 03/25/20 06:00 03/25/20 06:00 Sodium 139.8 Potassium 5.2 H Chloride 105 Carbon Dioxide 28 Anion Gap 7 BUN 118 H Creatinine 2.83 H Est GFR ( Amer) 26 L Glucose 117 H Calcium 8.9 03/13/20 08:39 Troponin I 0.075 NT-Pro-B Natriuret Pep 7080 H Impressions: Knee X-Ray 03/12/20 23:44 IMPRESSION: Osteopenia with advanced degenerative change copyright 2010 [employer]- All Rights Reserved Chest X-Ray 03/15/20 00:00 IMPRESSION: 1. Interval placement of a right-sided central line with the tip overlying the right atrium. 2. Cardiomegaly. Mild vascular congestion. Renal Ultrasound 03/17/20 00:00 IMPRESSION: Limited study. No obvious hydronephrosis. Head CT 03/23/20 00:00 IMPRESSION: 1. No evidence of intracranial hemorrhage. 2. Small focal area of hypoattenuation involving the left frontal centrum semiovale compatible with lacunar infarct, age indeterminate even lack of priors. Additional nonspecific white matter changes, likely sequelae of microangiopathic disease. EVIDENCE OF ACUTE STROKE: Age-indeterminate lacunar left frontal lobe. Findings discussed with Dr. Duffy 1645 hours on 03/23/2020. Head MRI 03/23/20 00:00 IMPRESSION: Area of hyperacute/acute stroke in the left posterior frontal and superior temporal region. Diffuse global volume loss with extensive white matter changes suggesting small vessel ischemic disease. Assessment and Plan - Diagnosis (1) Stroke Qualifiers: Precerebral and cerebral artery: middle cerebral artery Laterality of affected vessel: left Is this a current diagnosis for this admission?: Yes Plan: 03/24/2020-patient has new onset stroke. Confirmed by MRI. Patient is confused unable to respond properly. On examination power in upper and lower extremities within normal limits. 03/25/2020 Posterior frontal lobe temporal lobe involvement. Right facial droop. Systemic weakness is symmetric and likely related to his hospitalization rather than the acute stroke. Continue Plavix and aspirin. (2) Dysphagia due to recent stroke Is this a current diagnosis for this admission?: Yes Plan: 03/25/2020 Speech therapy assessment reveals aspiration with thin liquids. Will trial pure with nectar thick liquids as patient is likely unable to undergo a modified barium swallow due to aphasia and BMI. 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 We are starting to turn down the dopamine now because his blood pressure is recovering. March 18, 2020 The patient just returned from hemodialysis. We are trying to taper off of the dopamine drip. Blood pressures appear to be improving. Normally he is hypertensive. Still holding some of his other antihypertensive medications. We will add back when appropriate. 03/19/2020 hypotension is resolved. Off the IV fluids and off the dopamine drip. Blood pressure is 137/62. Plan is to closely monitor the blood pressures at this time. 03/20/2020-blood pressure today is 140/67. Not on IV fluids not on dopamine drip. 03/21/2020-blood pressure today is 140/70. Stable. Not on IV fluids not on dopamine drip. 03/22/2020-blood pressure today is 147/64. Stable. 03/23/2020-blood pressure today is 141/60. Stable. Not on IV fluids not on dopamine drip at this time. 03/24/2020-blood pressure today is 138/60. Stable. 03/25/2020-resolved. Continue to monitor blood pressure. (5) Acute kidney injury superimposed on chronic kidney disease Is this a current diagnosis for this admission?: Yes Plan: pt is getting dialysis and as needed basis. last dialysis session yesterday. Latest serum creatinine is 3.35. Improving. 03/22/2020-serum creatinine today is 3.21 continue to improve on daily basis. 03/23/2021-serum creatinine today 3.1. Improving. 03/24/2020-creatinine today is 3.12. Stable. 03/25/2020-creatinine down to 2.83 but BUN still elevated. Please also see nephrology note. (6) Longstanding persistent atrial fibrillation Is this a current diagnosis for this admission?: Yes Plan: Rate controlled 03/25/2020-rate controlled. No anticoagulation at this time due to high risk with falls (7) Hyperkalemia Is this a current diagnosis for this admission?: Yes Plan: Improved after hemodialysis March 18, 2020 I will check serum potassium tomorrow. I believe dialysis will be removed enough potassium to get the patient back in the normal range. Continue to monit or electrolytes. 03/19/2020-patient has a dialysis session yesterday. Serum potassium normalized to 4.9. Patient will be on low potassium diet. 03/20/2020-serum potassium is 4.9, hyperkalemia is resolved. 03/21/2020-serum potassium today is 4.8. Stable. Hyperkalemia is resolved. 03/22/2020-serum potassium today 4.9 hyperkalemia resolved. 03/23/2020-serum potassium today is 5.0. Within normal limits. Plan is to closely monitor the serum potassium at this time. 03/24/2020-serum potassium is 5.2. Slightly above the normal limit. Patient is n.p.o. at this time. 03/25/2020-potassium still slightly elevated. Nephrology is starting Veltassa (8) Acute on chronic diastolic (congestive) heart failure Is this a current diagnosis for this admission?: Yes Plan: He will need medical optimization. He does not appear to be in acute failure at this time. Diuretics held because of blood pressure and renal function. He only got 2 doses of Lasix. Echocardiogram shows a preserved ejection fraction, some mild pulmonary hypertension and mild aortic stenosis. March 18, 2020 Fluid management with dialysis and eventually diuretics. Defer hemodialysis treatment decisions to nephrology. 03/19/2020-echocardiogram indicates normal ejection fraction with associated mild pulmonary hypertension and mild aortic stenosis. Patient has a dialysis session yesterday on examination this morning is not in fluid overload. IV fluids are discontinued dopamine drip is discontinued. Patient is started on torsemide 20 mg p.o. daily by Dr. Lundberg. 03/20/2020-blood pressure today is 140/57. Echocardiogram indicates normal EF. He has pulmonary hypertension and mild aortic stenosis. Presently on torsemide 20 mg p.o. daily. 03/21/2020-patient went for the dialysis today 1.5 L of fluid is removed. Patient is presently on torsemide 20 mg p.o. daily. Volume status is improving. 03/21/2020-blood pressure this morning is 147/64 on torsemide 10 mg daily and Coreg 12.5 mg p.o. twice daily. Yesterday evening blood pressure is low systolic blood pressure is around 100 given 500 cc of normal saline bolus. Blood pressures promptly improved. Today patient is asymptomatic. 03/23/2020-blood pressure today is 145/60 slight edema present in the both feet. Chest bilateral entry was decreased no wheezing no crepitations. On torsemide 10 mg p.o. daily. urinary output is good. 03/24/2020-patient is n.p.o. except for medications due to the new stroke. Not in fluid overload at the time of examination. 03/25/2020-acute heart failure resolved (9) Acute on chronic respiratory failure with hypoxia and hypercapnia Is this a current diagnosis for this admission?: Yes Plan: March 18, 2020 Blood gas yesterday shows continued improvement in the patient's PCO2. It is below 55. He may likely be at his baseline. Wean BiPAP machine is still in his room. He is currently on nasal cannula. We will try to keep oxygen saturation around 90% to 94% 03/19/2020-pulse ox today is 99% on 4 L. Patient is refusing to wear the BiPAP. Plan is to continue the present management at this time. In the ABGs PCO2 is elevated most likely secondary to CO2 retention with morbid obesity. Most lik malcolm patient has obstructive sleep apnea. 03/20/2020-pulse ox today is 99% on 3 L. Comfortably in the bed communicating well. Hypoxia and hypercapnia resolving. 03/21/2020-pulse ox today is 97% on 3 L. Comfortable in the bed communicating well. Not in respiratory distress. 03/22/2020-patient is comfortably sleeping in the bed laying flat not in distress. Pulse ox is 99% on 3 L. 03/23/2020-pulse ox is 98% on 3 L. Comfortably in the bed communicating well. Denies any chest tightness or wheezing. 03/25/2020-continue current oxygen supplementation. (10) Anemia in chronic kidney disease (CKD) Qualifiers: Chronic kidney disease stage: stage 3 (moderate) Qualified Code(s): N18.3 - Chronic kidney disease, stage 3 (moderate); D63.1 - Anemia in chronic kidney disease Is this a current diagnosis for this admission?: No Plan: Hemoglobin stable, continue to monitor March 18, 2020 Iron and erythropoietin per nephrology. Continue to monitor hemoglobin. Slight dip to 8.4 today. Recheck tomorrow. 03/19/2020-patient's hemoglobin is 8.4 anemia of chronic disease most likely secondary to underlying CKD. 03/20/2020-patient hemoglobin today is 8.4. Stable. 03/21/2020-hemoglobin today is 8.8. Stable. 03/22/20-latest hemoglobin is 8.5. Stable. Plan is to closely monitor the labs on daily basis. 03/23/2020-hemoglobin today is 8.6 stable. 03/25/2020-hemoglobin yesterday was 9.4. Continue to monitor. (11) Hypertensive urgency Is this a current diagnosis for this admission?: Yes Plan: Blood pressures have improved after resuming his home medications. They are on hold for now because of hypotension. 03/18/2020 Went home medications were resumed and blood pressure began to decrease. Eventually it became tomorrow he is now on dopamine. Continue to monitor closely and adjust medications accordingly. 03/20/2020-blood pressure today is 140/67. On torsemide 20 mg p.o. daily. He is off dopamine drip and off IV fluids at this time. 03/21/2020-blood pressure today is 140/70 hypertensive emergency resolved. 03/22/2020-blood pressure today is 147/64 stable. 03/23/2020-blood pressure today is 145/60 stable. 03/24/2020-blood pressure today is 140/60. Stable. 03/25/2020-resolved. Blood pressure improved. Continue current medications. (12) Fall Qualifiers: Encounter type: initial encounter Qualified Code(s): W19.XXXA - Unspecified fall, initial encounter Is this a current diagnosis for this admission?: Yes Plan: PT evaluation pending more clinical improvement March 18, 2020 Physical therapy to evaluate when patient is more stable. 03/19/2020-patient is receiving Ultram 50 mg p.o. every 6 hours physical therapy working with the patient. Patient agreed to go to a rehab facility if necessary. 03/20/20--physical therapy is working with the patient. Plan [facility] to [facility]. 03/25/2020-continue PT and OT especially in light of recent stroke (13) Degenerative arthritis of knee, bilateral Qualifiers: Osteoarthritis type: unspecified Qualified Code(s): M17.0 - Bilateral primary osteoarthritis of knee Is this a current diagnosis for this admission?: No Plan: Will order PT evaluation. He was not excited about the idea of doing physical therapy. March 18, 2020 Significantly worsened by his weight. Physical therapy may be limited as well to the patient's BMI. 03/25/2020-PT and pain management (14) Morbid obesity with BMI of 45.0-49.9, adult Is this a current diagnosis for this admission?: No Plan: Status quo. 03/25/2020-no acute intervention at this time. Increases complexity of multiple comorbidities. (15) Coronary artery disease Qualifiers: Coronary Disease-Associated Artery/Lesion type: [place] artery [place] vs. transplanted heart: sun[place]aq heart Is this a current diagnosis for this admission?: No Plan: We will continue home medication regimen March 18, 2020 Juggling patient's usual medication regimen in light of blood pressure issues. No evidence of acute coronary syndrome at this time. 03/25/2020-no evidence of acute coronary syndrome at this time. (16) Pulmonary hypertension Is this a current diagnosis for this admission?: Yes Plan: Mild pulmonary hypertension on echocardiogram right ventricular systolic pressure was 30 to 40 mmHg 03/18/2020 Continue current management. No specific dedicated treatment for pulmonary hypertension at this point. 03/25/2020-as noted above mild by echocardiogram. No specific intervention at this point. - Time Time Spent with patient: 15-24 minutes Medications reviewed and adjusted accordingly: Yes
[2020-03-25] MEDS: PATIROMER 8.4 GM SUSP PACKET PO SCH (17:52)
[2020-03-25] MEDS: ATORVASTATIN CALCIUM 40 MG TABLET PO SCH (22:34)
[2020-03-26] MEDS: HEPARIN SOD (PORCINE) 5,000 UNIT/ML 1 ML VIAL SUBCUT SCH ×3 (05:09→21:21)
[2020-03-26 06:11] LABS: ANION GAP 6 (5-19); BLOOD UREA NITROGEN 117 mg/dL (7-20); CALCIUM 9.2 mg/dL (8.4-10.2); CARBON DIOXIDE 30 mmol/L (22-30); CHLORIDE 107 mmol/L (98-107); GLUCOSE 106 mg/dL (75-110); POTASSIUM 4.6 mmol/L (3.6-5.0)
[2020-03-26] MEDS ORDERED: HYDROCORTISONE SOD SUCCINATE INJ/PF 100 MG/2 ML SDV IV SCH (10:00)
[2020-03-26] MEDS: ASPIRIN 81 MG TABLET, CHEWABLE PO SCH (10:34)
[2020-03-26] MEDS: CARVEDILOL 12.5 MG TABLET PO SCH ×2 (10:34→21:21)
[2020-03-26] MEDS: CLOPIDOGREL BISULFATE 75 MG TABLET PO SCH (10:37)
[2020-03-26] MEDS: TORSEMIDE 20 MG TABLET PO SCH (10:37)
[2020-03-26] MEDS: CALCITRIOL 0.25 MCG CAPSULE PO SCH (10:38)
[2020-03-26] MEDS: FEBUXOSTAT 40 MG TABLET PO SCH (10:40)
[2020-03-26] MEDS: PANTOT AC/MIN OIL/PET HY-PHL OINT 50 GM TOP SCH ×2 (10:43→17:29)
--- NOTE | 2020-03-26 11:15 | PDOC PROGRESS REPORT ---
Subjective Progress Note for:: 03/26/20 Subjective:: More alert today. Answered multiple questions appropriately albeit with 1 and 2 word answers. He could not tell me where he was and when I told him he was in the hospital he could not tell me which hospital but he is definitely better than yesterday. PT, OT and speech continue to work with the patient. Reason For Visit: ACUTE HYPOXIC RESPIRATORY FAILURE, ACUTE CHF, HYPE Physical Exam Vital Signs: Temp Pulse Resp BP Pulse Ox 97.5 F 57 L 16 106/64 99 03/26/20 04:19 03/26/20 06:00 03/26/20 06:00 03/26/20 06:00 03/26/20 06:00 Intake & Output 03/25/20 03/26/20 03/27/20 06:59 06:59 06:59 Intake Total 0 1221 Output Total 1450 1310 Balance -1450 -89 Weight 154 kg 148.6 kg General appearance: PRESENT: no acute distress, cooperative, morbidly obese Head exam: PRESENT: atraumatic, normocephalic Eye exam: PRESENT: conjunctiva pink. ABSENT: scleral icterus Ear exam: PRESENT: normal external ear exam. ABSENT: bleeding, drainage Mouth exam: PRESENT: moist, other - Right facial droop Neck exam: PRESENT: other - Significant redundant tissue with a very large. ABSENT: JVD, lymphadenopathy Respiratory exam: PRESENT: clear to auscultation [place] - Anteriorly, symmetrical, unlabored. ABSENT: accessory muscle use, rales, rhonchi, tachypnea, wheezes Cardiovascular exam: PRESENT: RRR, +S1, +S2, other - Decreased heart sounds in general due to body habitus. ABSENT: diastolic murmur, irregular rhythm, systolic murmur GI/Abdominal exam: PRESENT: normal bowel sounds, soft, other - Pendulous abdomen. ABSENT: guarding, tenderness Rectal exam: PRESENT: deferred Gentrourinary exam: PRESENT: indwelling catheter Extremities exam: PRESENT: pedal edema. ABSENT: clubbing Musculoskeletal exam: PRESENT: normal inspection. ABSENT: ambulatory, deformity Neurological exam: PRESENT: alert, awake, oriented to person, aphasic - Much improved, other - Dysphagia. ABSENT: oriented to place, oriented to time Psychiatric exam: PRESENT: flat affect. ABSENT: agitated, anxious Focused psych exam: ABSENT: delusional, paranoid, restlessness Skin exam: PRESENT: dry, warm. ABSENT: rash Results Laboratory Results: 03/24/20 09:48 03/26/20 05:04 03/26/20 05:04 Sodium 143.1 Potassium 4.6 Chloride 107 Carbon Dioxide 30 Anion Gap 6 BUN 117 H Creatinine 2.88 H Est GFR ( Amer) 26 L Glucose 106 Calcium 9.2 03/13/20 08:39 Troponin I 0.075 NT-Pro-B Natriuret Pep 7080 H Impressions: Knee X-Ray 03/12/20 23:44 IMPRESSION: Osteopenia with advanced degenerative change copyright 2010 [employer]- All Rights Reserved Chest X-Ray 03/15/20 00:00 IMPRESSION: 1. Interval placement of a right-sided central line with the tip overlying the right atrium. 2. Cardiomegaly. Mild vascular congestion. Renal Ultrasound 03/17/20 00:00 IMPRESSION: Limited study. No obvious hydronephrosis. Head CT 03/23/20 00:00 IMPRESSION: 1. No evidence of intracranial hemorrhage. 2. Small focal area of hypoattenuation involving the left frontal centrum semiovale compatible with lacunar infarct, age indeterminate even lack of priors. Additional nonspecific white matter changes, likely sequelae of microangiopathic disease. EVIDENCE OF ACUTE STROKE: Age-indeterminate lacunar left frontal lobe. Findings discussed with Dr. Duffy 1645 hours on 03/23/2020. Head MRI 03/23/20 00:00 IMPRESSION: Area of hyperacute/acute stroke in the left posterior frontal and superior temporal region. Diffuse global volume loss with extensive white matter changes suggesting small vessel ischemic disease. Assessment and Plan - Diagnosis (1) Stroke Qualifiers: Precerebral and cerebral artery: middle cerebral artery Laterality of affected vessel: left Is this a current diagnosis for this admission?: Yes Plan: 03/24/2020-patient has new onset stroke. Confirmed by MRI. Patient is confused unable to respond properly. On examination power in upper and lower extremities within normal limits. 03/25/2020 Posterior frontal lobe temporal lobe involvement. Right facial droop. Systemic weakness is symmetric and likely related to his hospitalization rather than the acute stroke. Continue Plavix and aspirin. 03/26/2020 Improved from yesterday. Aphasia definitely better. Physical therapy continues to work with patient. I did speak with patient's son as well as the patient. In light of his slow improvement the consensus is that he will benefit from longterm and rehab. He will need PT, OT and speech. It is difficult to know where he will plateau with regard to recovery but based on improvement over the last day or 2 it is definitely appropriate to refer him. In addition, none may be worth having acute inpatient rehab evaluate the patient. It is hard to know if he would meet the criteria for required hours of therapy. (2) Dysphagia due to recent stroke Is this a current diagnosis for this admission?: Yes Plan: 03/25/2020 Speech therapy assessment reveals aspiration with thin liquids. Will trial pure with nectar thick liquids as patient is likely unable to undergo a modified barium swallow due to aphasia and BMI. 03/26/2020 Standard MBS not obtainable due to patient size. He may need FEES. This could be done at [facility] or [facility]. I am not sure if he would qualify for acute inpatient rehab. Will discuss with speech therapy and case management. 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 Continue speech therapy. (4) Acute kidney injury superimposed on chronic kidney disease Is this a current diagnosis for this admission?: Yes Plan: pt is getting dialysis and as needed basis. last dialysis session yesterday. Latest serum creatinine is 3.35. Improving. 03/22/2020-serum creatinine today is 3.21 continue to improve on daily basis. 03/23/2021-serum creatinine today 3.1. Improving. 03/24/2020-creatinine today is 3.12. Stable. 03/25/2020-creatinine down to 2.83 but BUN still elevated. Please also see nephrology note. 03/26/2020-creatinine at 2.88. Not a clinical significant difference. I am going to discontinue the patient's steroids completely. He was going to get 1 more dose tomorrow however it is not necessary. Hopefully will begin to see a decrease in the BUN. This may be the patient's baseline. It is difficult to know. 1.3 L of urine was produced yesterday. (5) Longstanding persistent atrial fibrillation Is this a current diagnosis for this admission?: Yes Plan: Rate controlled 03/25/2020-rate controlled. No anticoagulation at this time due to high risk with falls 03/26/2020 1 burst of tachycardia (150 bpm) earlier but otherwise excellent rate control. Continue current regimen. (6) Hyperkalemia Is this a current diagnosis for this admission?: Yes Plan: Improved after hemodialysis March 18, 2020 I will check serum potassium tomorrow. I believe dialysis will be removed enough potassium to get the patient back in the normal range. Continue to monitor electrolytes. 03/19/2020-patient has a dialysis session yesterday. Serum potassium normalized to 4.9. Patient will be on low potassium diet. 03/20/2020-serum potassium is 4.9, hyperkalemia is resolved. 03/21/2020-serum potassium today is 4.8. Stable. Hyperkalemia is resolved. 03/22/2020-serum potassium today 4.9 hyperkalemia resolved. 03/23/2020-serum potassium today is 5.0. Within normal limits. Plan is to closely monitor the serum potassium at this time. 03/24/2020-serum potassium is 5.2. Slightly above the normal limit. Patient is n.p.o. at this time. 03/25/2020-potassium still slightly elevated. Nephrology is starting Veltassa 03/26/2020-potassium down to 4.6. Continue Veltassa. (7) Acute on chronic diastolic (congestive) heart failure Is this a current diagnosis for this admission?: Yes Plan: He will need medical optimization. He does not appear to be in acute failure at this time. Diuretics held because of blood pressure and renal function. He only got 2 doses of Lasix. Echocardiogram shows a preserved ejection fraction, some mild pulmonary hypertension and mild aortic stenosis. March 18, 2020 Fluid management with dialysis and eventually diuretics. Defer hemodialysis treatment decisions to nephrology. 03/19/2020-echocardiogram indicates normal ejection fraction with associated mild pulmonary hypertension and mild aortic stenosis. Patient has a dialysis session yesterday on examination this morning is not in fluid overload. IV fluids are discontinued dopamine drip is discontinued. Patient is started on torsemide 20 mg p.o. daily by Dr. Lundberg. 03/20/2020-blood pressure today is 140/57. Echocardiogram indicates normal EF. He has pulmonary hypertension and mild aortic stenosis. Presently on torsemide 20 mg p.o. daily. 03/21/2020-patient went for the dialysis today 1.5 L of fluid is removed. Patient is presently on torsemide 20 mg p.o. daily. Volume status is improving. 03/21/2020-blood pressure this morning is 147/64 on torsemide 10 mg daily and Coreg 12.5 mg p.o. twice daily. Yesterday evening blood pressure is low systolic blood pressure is around 100 given 500 cc of normal saline bolus. Blood pressures promptly improved. Today patient is asymptomatic. 03/23/2020-blood pressure today is 145/60 slight edema present in the both feet. Chest bilateral entry was decreased no wheezing no crepitations. On torsemide 10 mg p.o. daily. urinary output is good. 03/24/2020-patient is n.p.o. except for medications due to the new stroke. Not in fluid overload at the time of examination. 03/25/2020-acute heart failure resolved 03/26/2020-consistently net negative fluid balance. Continue current regimen. (8) Acute on chronic respiratory failure with hypoxia and hypercapnia Is this a current diagnosis for this admission?: Yes Plan: March 18, 2020 Blood gas yesterday shows continued improvement in the patient's PCO2. It is below 55. He may likely be at his baseline. Wean BiPAP machine is still in his room. He is currently on nasal cannula. We will try to keep oxygen saturation around 90% to 94% 03/19/2020-pulse ox today is 99% on 4 L. Patient is refusing to wear the BiPAP. Plan is to continue the present management at this time. In the ABGs PCO2 is elevated most likely secondary to CO2 retention with morbid obesity. Most likely patient has obstructive sleep apnea. 03/20/2020-pulse ox today is 99% on 3 L. Comfortably in the bed communicating well. Hypoxia and hypercapnia resolving. 03/21/2020-pulse ox today is 97% on 3 L. Comfortable in the bed communicating well. Not in respiratory distress. 03/22/2020-patient is comfortably sleeping in the bed laying flat not in distress. Pulse ox is 99% on 3 L. 03/23/2020-pulse ox is 98% on 3 L. Comfortably in the bed communicating well. Denies any chest tightness or wheezing. 03/25/2020-continue current oxygen supplementation. 03/26/2020-still requires between 3 and 4 L/min oxygen (9) Anemia in chronic kidney disease (CKD) Qualifiers: Chronic kidney disease stage: stage 3 (moderate) Qualified Code(s): N18.3 - Chronic kidney disease, stage 3 (moderate); D63.1 - Anemia in chronic kidney disease Is this a current diagnosis for this admission?: Yes Plan: Hemoglobin stable, continue to monitor March 18, 2020 Iron and erythropoietin per nephrology. Continue to monitor hemoglobin. Slight dip to 8.4 today. Recheck tomorrow. 03/19/2020-patient's hemoglobin is 8.4 anemia of chronic disease most likely secondary to underlying CKD. 03/20/2020-patient hemoglobin today is 8.4. Stable. 03/21/2020-hemoglobin today is 8.8. Stable. 03/22/20-latest hemoglobin is 8.5. Stable. Plan is to closely monitor the labs on daily basis. 03/23/2020-hemoglobin today is 8.6 stable. 03/25/2020-hemoglobin yesterday was 9.4. Continue to monitor. 03/26/2020-recheck hemoglobin tomorrow (10) Fall Qualifiers: Encounter type: initial encounter Qualified Code(s): W19.XXXA - Unspecified fall, initial encounter Is this a current diagnosis for this admission?: Yes Plan: PT evaluation pending more clinical improvement March 18, 2020 Physical therapy to evaluate when patient is more stable. 03/19/2020-patient is receiving Ultram 50 mg p.o. every 6 hours physical therapy working with the patient. Patient agreed to go to a rehab facility if necessary. 03/20/20--physical therapy is working with the patient. Plan is to send him to long-term care facility. 03/25/2020-continue PT and OT especially in light of recent stroke 03/26/2020-still with significant knee pain. This is likely 1 of the contributing factors to his falls. He has been unable to stand up with PT yet but I feel he would benefit greatly from ongoing therapy skilled facility or if he qualifies, acute inpatient rehab. (11) Degenerative arthritis of knee, bilateral Qualifiers: Osteoarthritis type: unspecified Qualified Code(s): M17.0 - Bilateral primary osteoarthritis of knee Is this a current diagnosis for this admission?: Yes Plan: Will order PT evaluation. He was not excited about the idea of doing physical therapy. March 18, 2020 Significantly worsened by his weight. Physical therapy may be limited as well to the patient's BMI. 03/25/2020-PT and pain management 03/26/2020-limited intervention as the patient is not a candidate for total knee replacement therapy. Conservative and supportive care. (12) Morbid obesity with BMI of 45.0-49.9, adult Is this a current diagnosis for this admission?: Yes Plan: Status quo. 03/25/2020-no acute intervention at this time. Increases complexity of multiple comorbidities. 03/26/2020-the patient's BMI is slowly decreasing. Likely weight loss related to his prolonged hospitalization. Still a major comorbidity affecting his overall health. (13) Coronary artery disease Qualifiers: Coronary Disease-Associated Artery/Lesion type: [place] artery [place] vs. transplanted heart: [place] heart Is this a current diagnosis for this admission?: Yes Plan: We will continue home medication regimen March 18, 2020 Juggling patient's usual medication regimen in light of blood pressure issues. No evidence of acute coronary syndrome at this time. 03/25/2020-no evidence of acute coronary syndrome at this time. (14) Pulmonary hypertension Is this a current diagnosis for this admission?: Yes Plan: Mild pulmonary hypertension on echocardiogram right ventricular systolic pressure was 30 to 40 mmHg 03/18/2020 Continue current management. No specific dedicated treatment for pulmonary hypertension at this point. 03/25/2020-as noted above mild by echocardiogram. No specific intervention at this point. (15) Hypotension Qualifiers: Hypotension type: hypotension due to hypovolemia Qualified Code(s): I95.89 - Other hypotension; E86.1 - Hypovolemia Is this a current diagnosis for this admission?: Yes Plan: We have had him on some fluids and a dopamine drip. We are starting to turn down the dopamine now because his blood pressure is recovering. March 18, 2020 The patient just returned from hemodialysis. We are trying to taper off of the dopamine drip. Blood pressures appear to be improving. Normally he is hypertensive. Still holding some of his other antihypertensive medications. We will add back when appropriate. 03/19/2020 hypotension is resolved. Off the IV fluids and off the dopamine drip. Blood pressure is 137/62. Plan is to closely monitor the blood pressures at this time. 03/20/2020-blood pressure today is 140/67. Not on IV fluids not on dopamine drip. 03/21/2020-blood pressure today is 140/70. Stable. Not on IV fluids not on dopamine drip. 03/22/2020-blood pressure today is 147/64. Stable. 03/23/2020-blood pressure today is 141/60. Stable. Not on IV fluids not on dopamine drip at this time. 03/24/2020-blood pressure today is 138/60. Stable. 03/25/2020-resolved. Continue to monitor blood pressure. (16) Hypertensive urgency Is this a current diagnosis for this admission?: Yes Plan: Blood pressures have improved after resuming his home medications. They are on hold for now because of hypotension. 03/18/2020 Went home medications were resumed and blood pressure began to decrease. Eventually it became tomorrow he is now on dopamine. Continue to monitor closely and adjust medications accordingly. 03/20/2020-blood pressure today is 140/67. On torsemide 20 mg p.o. daily. He is off dopamine drip and off IV fluids at this time. 03/21/2020-blood pressure today is 140/70 hypertensive emergency resolved. 03/22/2020-blood pressure today is 147/64 stable. 03/23/2020-blood pressure today is 145/60 stable. 03/24/2020-blood pressure today is 140/60. Stable. 03/25/2020-resolved. Blood pressure improved. Continue current medications.
[2020-03-26] MEDS: PATIROMER 8.4 GM SUSP PACKET PO SCH (17:29)
[2020-03-26] MEDS: HYDRALAZINE HCL INJ/PF 20 MG/1 ML SDV IV PRN (20:14)
[2020-03-26] MEDS: ATORVASTATIN CALCIUM 40 MG TABLET PO SCH (21:21)
[2020-03-27] MEDS: HEPARIN SOD (PORCINE) 5,000 UNIT/ML 1 ML VIAL SUBCUT SCH ×2 (05:26→14:13)
[2020-03-27 05:53] LABS: HEMATOCRIT 28.2 % (37.9-51.0); HEMOGLOBIN 9.1 g/dL (13.5-17.0); MEAN CORPUSCULAR HEMOGLOBIN 30.2 pg (27.0-33.4); MEAN CORPUSCULAR HGB CONC 32.2 g/dL (32.0-36.0); MEAN CORPUSCULAR VOLUME 94 fl (80-97); PLATELET COUNT 197 10^3/uL (150-450); RED BLOOD COUNT 3.01 10^6/uL (4.35-5.55); RED CELL DISTRIBUTION WIDTH 16.3 % (11.5-14.0); WHITE BLOOD COUNT 8.3 10^3/uL (4.0-10.5)
[2020-03-27 06:13] LABS: BLOOD UREA NITROGEN 118 mg/dL (7-20); CALCIUM 9.1 mg/dL (8.4-10.2); CARBON DIOXIDE 31 mmol/L (22-30); CHLORIDE 110 mmol/L (98-107); GLUCOSE 117 mg/dL (75-110); POTASSIUM 4.5 mmol/L (3.6-5.0)
[2020-03-27 06:20] LABS: ANION GAP 3 (5-19)
[2020-03-27] MEDS: CARVEDILOL 12.5 MG TABLET PO SCH (10:03)
[2020-03-27] MEDS: TORSEMIDE 20 MG TABLET PO SCH (10:03)
[2020-03-27] MEDS: FEBUXOSTAT 40 MG TABLET PO SCH (10:03)
[2020-03-27] MEDS: CLOPIDOGREL BISULFATE 75 MG TABLET PO SCH (10:03)
[2020-03-27] MEDS: PANTOT AC/MIN OIL/PET HY-PHL OINT 50 GM TOP SCH (10:03)
[2020-03-27] MEDS: CALCITRIOL 0.25 MCG CAPSULE PO SCH (10:03)
[2020-03-27] MEDS: ASPIRIN 81 MG TABLET, CHEWABLE PO SCH (10:03)
--- NOTE | 2020-03-27 11:00 | PDOC TRANSFER SUMMARY ---
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 Is this a current diagnosis for this admission?: Yes (4) Acute kidney injury superimposed on chronic kidney disease Is this a current diagnosis for this admission?: Yes (5) Longstanding persistent atrial fibrillation Is this a current diagnosis for this admission?: Yes (6) Hyperkalemia Is this a current diagnosis for this admission?: Yes (7) Acute on chronic diastolic (congestive) heart failure Is this a current diagnosis for this admission?: Yes (8) Acute on chronic respiratory failure with hypoxia and hypercapnia Is this a current diagnosis for this admission?: Yes (9) Anemia in chronic kidney disease (CKD) Is this a current diagnosis for this admission?: Yes (10) Fall Is this a current diagnosis for this admission?: Yes (11) Degenerative arthritis of knee, bilateral Is this a current diagnosis for this admission?: Yes (12) Morbid obesity with BMI of 45.0-49.9, adult Is this a current diagnosis for this admission?: Yes (13) Coronary artery disease Is this a current diagnosis for this admission?: Yes (14) Pulmonary hypertension Is this a current diagnosis for this admission?: Yes (15) Hypotension Is this a current diagnosis for this admission?: Yes (16) Hypertensive urgency Is this a current diagnosis for this admission?: Yes - Assessment Summary: Patient with complicated hospital stay. Required temporary dialysis. Had rhabdomyolysis. Gait was impaired due to severe osteoarthritis and knee pain initially. Patient experienced an acute ischemic stroke. Over the last several days his aphasia has gotten noticeably better. He still has dysphagia and is currently on nectar thick pured diet. Unable to obtain modified barium swallow at this institution due to the patient's body mass index. Continue speech therapy. Consider outpatient FEES study if necessary. He has no longer received hemodialysis for the past week. He needs follow-up with Dr. Jules in approximately 2 weeks. Because of his limited mobility I am sending the patient with his Matt catheter in place to avoid skin breakdown from caustic effects of urine. Please discontinue when appropriate. - Additional Information Resuscitation Status: Do Not Resuscitate Discharge Diet: Cardiac Discharge Activity: Activity As Tolerated - Continue PT, OT and speech therapy, Balance Activity w/Rest, Weigh Daily Referrals: ERNESTINE BRANDT FNP-C [Primary Care Provider] - Follow up as needed BERNARDINO JULES MD [ACTIVE STAFF] - (Follow-up 2 weeks. Patient needs urinalysis, renal function panel, magnesium and CBC prior to visit.) Home Medications: Clopidogrel Bisulfate [Plavix 75 mg Tablet] 75 mg PO DAILY 09/25/12 Carvedilol [Coreg 12.5 mg Tablet] 25 mg PO Q12 #0 tablet 10/05/12 Calcitriol [Rocaltrol 0.25 mcg Capsule] 0.25 mcg PO DAILY 03/13/20 Cholecalciferol (Vitamin D3) [Vitamin D3 1000 Unit Tablet] 5,000 unit PO DAILY 03/13/20 Febuxostat [Uloric 40 mg Tablet] 40 mg PO DAILY 03/13/20 Rosuvastatin Calcium [Crestor] 20 mg PO DAILY 03/13/20 Aspirin [Aspirin 81 mg Chewable Tablet] 81 mg PO DAILY tab.chew 03/27/20 Bisacodyl [Dulcolax 5 mg Tablet] 5 mg PO DAILYP PRN tabec 03/27/20 Calcitriol [Rocaltrol 0.25 mcg Capsule] 0.25 mcg PO DAILY capsule 03/27/20 Pantot AC/Min Oil/Pet Hy-Phl [Aquaphor W-Dianelys Heal Oint 50 gm] 1 applic TOP BID tube 03/27/20 Patiromer Calcium Sorbitex [Veltassa 8.4 gm Susp Packet] 8.4 gm PO WSUPPER packet 03/27/20 Torsemide [Demadex 20 mg Tablet] 10 mg PO DAILY tablet 03/27/20 History of Present Illiness History of Present Illness: YOLANDA BERNSTEIN JR is a 80 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 He says he normally gets around in a scooter inside the house on the bottom floor, and when he has to go up some short stairs he uses an office chair with wheels to get around upstairs. It is not clear if he was coming up the stairs or going down the stairs, but at some point he fell and landed on both of his knees. This is the reason he was brought in. Multiple plain films show a lot of arthritis but no acute fract ures. While he was here he started complaining of shortness of breath and was hypoxemic. His blood pressure was also high because he is not taking any of his medications this morning. He does not know who his vocational nursing instructor is. He does not know if he has a history of congestive heart failure but he does take torsemide at home, which he says is because he gets swelling in his legs intermittently. He has been able to lay down flat at home. He is not been having any fevers. No cough. He mostly gets short of breath with exertion but he is obviously very deconditioned and this complicates his clinical picture. He had to get put on BiPAP for a little while in the ER and this improved his breathing. He does not wear oxygen at home. He appeared to have some bilateral edema on chest x-ray. Hospital Course Hospital Course: (1) Stroke Qualifiers: Precerebral and cerebral artery: middle cerebral artery Laterality of affected vessel: left Is this a current diagnosis for this admission?: Yes Plan: 03/24/2020-patient has new onset stroke. Confirmed by MRI. Patient is confused unable to respond properly. On examination power in upper and lower extremities within normal limits. 03/25/2020 Posterior frontal lobe temporal lobe involvement. Right facial droop. Systemic weakness is symmetric and likely related to his hospitalization rather than the acute stroke. Continue Plavix and aspirin. 03/26/2020 Improved from yesterday. Aphasia definitely better. Physical therapy continues to work with patient. I did speak with patient's son as well as the patient. In light of his slow improvement the consensus is that he will benefit from fpc and rehab. He will need PT, OT and speech. It is difficult to know where he will plateau with regard to recovery but based on improvement over the last day or 2 it is definitely appropriate to refer him. In addition, none may be worth having acute inpatient rehab evaluate the patient. It is hard to know if he would meet the criteria for required hours of therapy. (2) Dysphagia due to recent stroke Is this a current diagnosis for this admission?: Yes Plan: 03/25/2020 Speech therapy assessment reveals aspiration with thin liquids. Will trial pure with nectar thick liquids as patient is likely unable to undergo a modified barium swallow due to aphasia and BMI. 03/26/2020 Standard MBS not obtainable due to patient size. He may need FEES. This could be done at [facility] or [facility]. I am not sure if he would qualify for acute inpatient rehab. Will discuss with speech therapy and case management. 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 Continue speech therapy. (4) Acute kidney injury superimposed on chronic kidney disease Is this a current diagnosis for this admission?: Yes Plan: pt is getting dialysis and as needed basis. last dialysis session yesterday. Latest serum creatinine is 3.35. Improving. 03/22/2020-serum creatinine today is 3.21 continue to improve on daily basis. 03/23/2021-serum creatinine today 3.1. Improving. 03/24/2020-creatinine today is 3.12. Stable. 03/25/2020-creatinine down to 2.83 but BUN still elevated. Please also see nephrology note. 03/26/2020-creatinine at 2.88. Not a clinical significant difference. I am going to discontinue the patient's steroids completely. He was going to get 1 more dose tomorrow however it is not necessary. Hopefully will begin to see a decrease in the BUN. This may be the patient's baseline. It is difficult to know. 1.3 L of urine was produced yesterday. (5) Longstanding persistent atrial fibrillation Is this a current diagnosis for this admission?: Yes Plan: Rate controlled 03/25/2020-rate controlled. No anticoagulation at this time due to high risk with falls 03/26/2020 1 burst of tachycardia (150 bpm) earlier but otherwise excellent rate control. Continue current regimen. (6) Hyperkalemia Is this a current diagnosis for this admission?: Yes Plan: Improved after hemodialysis March 18, 2020 I will check serum potassium tomorrow. I believe dialysis will be removed enough potassium to get the patient back in the normal range. Continue to monitor electrolytes. 03/19/2020-patient has a dialysis session yesterday. Serum potassium normalized to 4.9. Patient will be on low potassium diet. 03/20/2020-serum potassium is 4.9, hyperkalemia is resolved. 03/21/2020-serum potassium today is 4.8. Stable. Hyperkalemia is resolved. 03/22/2020-serum potassium today 4.9 hyperkalemia resolved. 03/23/2020-serum potassium today is 5.0. Within normal limits. Plan is to closely monitor the serum potassium at this time. 03/24/2020-serum potassium is 5.2. Slightly above the normal limit. Patient is n.p.o. at this time. 03/25/2020-potassium still slightly elevated. Nephrology is starting Veltassa 03/26/2020-potassium down to 4.6. Continue Veltassa. (7) Acute on chronic diastolic (congestive) heart failure Is this a current diagnosis for this admission?: Yes Plan: He will need medical optimization. He does not appear to be in acute failure at this time. Diuretics held because of blood pressure and renal function. He only got 2 doses of Lasix. Echocardiogram shows a preserved ejection fraction, some mild pulmonary hypertension and mild aortic stenosis. March 18, 2020 Fluid management with dialysis and eventually diuretics. Defer hemodialysis treatment decisions to nephrology. 03/19/2020-echocardiogram indicates normal ejection fraction with associated mild pulmonary hypertension and mild aortic stenosis. Patient has a dialysis session yesterday on examination this morning is not in fluid overload. IV fluids are discontinued dopamine drip is discontinued. Patient is started on torsemide 20 mg p.o. daily by Dr. Jules. 03/20/2020-blood pressure today is 140/57. Echocardiogram indicates normal EF. He has pulmonary hypertension and mild aortic stenosis. Presently on torsemide 20 mg p.o. daily. 03/21/2020-patient went for the dialysis today 1.5 L of fluid is removed. Patient is presently on torsemide 20 mg p.o. daily. Volume status is improving. 03/21/2020-blood pressure this morning is 147/64 on torsemide 10 mg daily and Coreg 12.5 mg p.o. twice daily. Yesterday evening blood pressure is low systolic blood pressure is around 100 given 500 cc of normal saline bolus. Blood pressures promptly improved. Today patient is asymptomatic. 03/23/2020-blood pressure today is 145/60 slight edema present in the both feet. Chest bilateral entry was decreased no wheezing no crepitations. On torsemide 10 mg p.o. daily. urinary output is good. 03/24/2020-patient is n.p.o. except for medications due to the new stroke. Not in fluid overload at the time of examination. 03/25/2020-acute heart failure resolved 03/26/2020-consistently net negative fluid balance. Continue current regimen. (8) Acute on chronic respiratory failure with hypoxia and hypercapnia Is this a current diagnosis for this admission?: Yes Plan: March 18, 2020 Blood gas yesterday shows continued improvement in the patient's PCO2. It is below 55. He may likely be at his baseline. Wean BiPAP machine is still in his room. He is currently on nasal cannula. We will try to keep oxygen saturation around 90% to 94% 03/19/2020-pulse ox today is 99% on 4 L. Patient is refusing to wear the BiPAP. Plan is to continue the present management at this time. In the ABGs PCO2 is elevated most likely secondary to CO2 retention with morbid obesity. Most likely patient has obstructive sleep apnea. 03/20/2020-pulse ox today is 99% on 3 L. Comfortably in the bed communicating well. Hypoxia and hypercapnia resolving. 03/21/2020-pulse ox today is 97% on 3 L. Comfortable in the bed communicating well. Not in respiratory distress. 03/22/2020-patient is comfortably sleeping in the bed laying flat not in distress. Pulse ox is 99% on 3 L. 03/23/2020-pulse ox is 98% on 3 L. Comfortably in the bed communicating well. Denies any chest tightness or wheezing. 03/25/2020-continue current oxygen supplementation. 03/26/2020-still requires between 3 and 4 L/min oxygen (9) Anemia in chronic kidney disease (CKD) Qualifiers: Chronic kidney disease stage: stage 3 (moderate) Qualified Code(s): N18.3 - Chronic kidney disease, stage 3 (moderate); D63.1 - Anemia in chronic kidney disease Is this a current diagnosis for this admission?: Yes Plan: Hemoglobin stable, continue to monitor March 18, 2020 Iron and erythropoietin per nephrology. Continue to monitor hemoglobin. Slight dip to 8.4 today. Recheck tomorrow. 03/19/2020-patient's hemoglobin is 8.4 anemia of chronic disease most likely secondary to underlying CKD. 03/20/2020-patient hemoglobin today is 8.4. Stable. 03/21/2020-hemoglobin today is 8.8. Stable. 03/22/20-latest hemoglobin is 8.5. Stable. Plan is to closely monitor the labs on daily basis. 03/23/2020-hemoglobin today is 8.6 stable. 03/25/2020-hemoglobin yesterday was 9.4. Continue to monitor. 03/26/2020-recheck hemoglobin tomorrow (10) Fall Qualifiers: Encounter type: initial encounter Qualified Code(s): W19.XXXA - Unspecified fall, initial encounter Is this a current diagnosis for this admission?: Yes Plan: PT evaluation pending more clinical improvement March 18, 2020 Physical therapy to evaluate when patient is more stable. 03/19/2020-patient is receiving Ultram 50 mg p.o. every 6 hours physical therapy working with the patient. Patient agreed to go to a rehab facility if necessary. 03/20/20--physical therapy is working with the patient. Plan is to send him to long-term care facility. 03/25/2020-continue PT and OT especially in light of recent stroke 03/26/2020-still with significant knee pain. This is likely 1 of the contributing factors to his falls. He has been unable to stand up with PT yet but I feel he would benefit greatly from ongoing therapy skilled facility or if he qualifies, acute inpatient rehab. (11) Degenerative arthritis of knee, bilateral Qualifiers: Osteoarthritis type: unspecified Qualified Code(s): M17.0 - Bilateral primary osteoarthritis of knee Is this a current diagnosis for this admission?: Yes Plan: Will order PT evaluation. He was not excited about the idea of doing physical therapy. March 18, 2020 Significantly worsened by his weight. Physical therapy may be limited as well to the patient's BMI. 03/25/2020-PT and pain management 03/26/2020-limited intervention as the patient is not a candidate for total knee replacement therapy. Conservative and supportive care. (12) Morbid obesity with BMI of 45.0-49.9, adult Is this a current diagnosis for this admission?: Yes Plan: Status quo. 03/25/2020-no acute intervention at this time. Increases complexity of multiple comorbidities. 03/26/2020-the patient's BMI is slowly decreasing. Likely weight loss related to his prolonged hospitalization. Still a major comorbidity affecting his overall health. (13) Coronary artery disease Qualifiers: Coronary Disease-Associated Artery/Lesion type: [place] artery [place] vs. transplanted heart: [place] heart Is this a current diagnosis for this admission?: Yes Plan: We will continue home medication regimen March 18, 2020 Juggling patient's usual medication regimen in light of blood pressure issues. No evidence of acute coronary syndrome at this time. 03/25/2020-no evidence of acute coronary syndrome at this time. (14) Pulmonary hypertension Is this a current diagnosis for this admission?: Yes Plan: Mild pulmonary hypertension on echocardiogram right ventricular systolic pressure was 30 to 40 mmHg 03/18/2020 Continue current management. No specific dedicated treatment for pulmonary hypertension at this point. 03/25/2020-as noted above mild by echocardiogram. No specific intervention at this point. (15) Hypotension Qualifiers: Hypotension type: hypotension due to hypovolemia Qualified Code(s): I95.89 - Other hypotension; E86.1 - Hypovolemia Is this a current diagnosis for this admission?: Yes Plan: We have had him on some fluids and a dopamine drip. We are starting to turn down the dopamine now because his blood pressure is recovering. March 18, 2020 The patient just returned from hemodialysis. We are trying to taper off of the dopamine drip. Blood pressures appear to be improving. Normally he is hypertensive. Still holding some of his other antihypertensive medications. We will add back when appropriate. 03/19/2020 hypotension is resolved. Off the IV fluids and off the dopamine drip. Blood pressure is 137/62. Plan is to closely monitor the blood pressures at this time. 03/20/2020-blood pressure today is 140/67. Not on IV fluids not on dopamine drip. 03/21/2020-blood pressure today is 140/70. Stable. Not on IV fluids not on dopamine drip. 03/22/2020-blood pressure today is 147/64. Stable. 03/23/2020-blood pressure today is 141/60. Stable. Not on IV fluids not on dopamine drip at this time. 03/24/2020-blood pressure today is 138/60. Stable. 03/25/2020-resolved. Continue to monitor blood pressure. (16) Hypertensive urgency Is this a current diagnosis for this admission?: Yes Plan: Blood pressures have improved after resuming his home medications. They are on hold for now because of hypotension. 03/18/2020 Went home medications were resumed and blood pressure began to decrease. Eventually it became tomorrow he is now on dopamine. Continue to monitor closely and adjust medications accordingly. 03/20/2020-blood pressure today is 140/67. On torsemide 20 mg p.o. daily. He is off dopamine drip and off IV fluids at this time. 03/21/2020-blood pressure today is 140/70 hypertensive emergency resolved. 03/22/2020-blood pressure today is 147/64 stable. 03/23/2020-blood pressure today is 145/60 stable. 03/24/2020-blood pressure today is 140/60. Stable. 03/25/2020-resolved. Blood pressure improved. Continue current medications. Physical Exam Vital Signs: Temp Pulse Resp BP Pulse Ox 98.1 F 80 16 145/46 H 100 03/27/20 08:48 03/27/20 10:00 03/27/20 10:00 03/27/20 10:00 03/27/20 10:00 Intake & Output 03/26/20 03/27/20 03/28/20 06:59 06:59 06:59 Intake Total 1221 558 Output Total 1310 1240 Balance -89 -682 Weight 148.6 kg 146.5 kg General appearance: PRESENT: no acute distress Respiratory exam: PRESENT: clear to auscultation [place], symmetrical, unlabored. ABSENT: rales, rhonchi, tachypnea, wheezes Cardiovascular exam: PRESENT: RRR, +S1, +S2 GI/Abdominal exam: PRESENT: normal bowel sounds, soft. ABSENT: distended, tenderness Results Laboratory Results: WBC 8.3 10^3/uL (4.0-10.5) 03/27/20 05:32 RBC 3.01 10^6/uL (4.35-5.55) L 03/27/20 05:32 Hgb 9.1 g/dL (13.5-17.0) L 03/27/20 05:32 Hct 28.2 % (37.9-51.0) L 03/27/20 05:32 MCV 94 fl (80-97) 03/27/20 05:32 MCH 30.2 pg (27.0-33.4) 03/27/20 05:32 MCHC 32.2 g/dL (32.0-36.0) 03/27/20 05:32 RDW 16.3 % (11.5-14.0) H 03/27/20 05:32 Plt Count 197 10^3/uL (150-450) 03/27/20 05:32 Lymph % (Auto) Not Reportable 03/24/20 09:48 Terry % (Auto) Not Reportable 03/24/20 09:48 Eos % (Auto) Not Reportable 03/24/20 09:48 Baso % (Auto) Not Reportable 03/24/20 09:48 Reticulocyte # 0.071 10^6/uL (0.028-0.122) 03/17/20 05:30 Absolute Neuts (auto) Not Reportable 03/24/20 09:48 Absolute Lymphs (auto) Not Reportable 03/24/20 09:48 Absolute Monos (auto) Not Reportable 03/24/20 09:48 Absolute Eos (auto) Not Reportable 03/24/20 09:48 Absolute Basos (auto) Not Reportable 03/24/20 09:48 Total Counted 100 03/24/20 09:48 Seg Neutrophils % Not Reportable 03/24/20 09:48 Seg Neuts % (Manual) 81 % (42-78) H 03/24/20 09:48 Band Neutrophils % 2 % (3-5) L 03/24/20 09:48 Lymphocytes % (Manual) 11 % (13-45) L 03/24/20 09:48 Atypical Lymphs % 1 % (0) 03/19/20 10:20 Monocytes % (Manual) 5 % (3-13) 03/24/20 09:48 Eosinophils % (Manual) 0 % (0-6) 03/24/20 09:48 Basophils % (Manual) 0 % (0-2) 03/24/20 09:48 Metamyelocytes % 1 % (0-1) 03/24/20 09:48 Myelocytes % 2 % (0) H 03/20/20 05:00 Abs Neuts (Manual) 10.9 10^3/uL (1.7-8.2) H 03/24/20 09:48 Abs Lymphs (Manual) 1.4 10^3/uL (0.5-4.7) 03/24/20 09:48 Abs Monocytes (Manual) 0.7 10^3/uL (0.1-1.4) 03/24/20 09:48 Absolute Eos (Manual) 0.0 10^3/uL (0.0-0.6) 03/24/20 09:48 Abs Basophils (Manual) 0.0 10^3/uL (0.0-0.2) 03/24/20 09:48 Nucleated RBCs 1 /100 WBC (0) 03/24/20 09:48 Clumped Platelets PRESENT 03/22/20 05:40 Platelet Comment ADEQUATE 03/24/20 09:48 Polychromasia 1+ 03/24/20 09:48 Poikilocytosis 1+ 03/24/20 09:48 Basophilic Stippling PRESENT 03/24/20 09:48 Anisocytosis SLIGHT 03/24/20 09:48 Macrocytosis SLIGHT 03/24/20 09:48 Tear Drop Cells SLIGHT 03/24/20 09:48 Ovalocytes 1+ 03/24/20 09:48 Retic Count (auto) 2.55 % (0.66-2.85) 03/17/20 05:30 PT 13.5 SEC (11.4-15.4) 03/13/20 08:39 INR 1.03 03/13/20 08:39 APTT 33.2 SEC (23.5-35.8) 03/13/20 08:39 Carbonic Acid 1.63 mmol/L (1.05-1.35) H 03/17/20 08:25 HCO3/H2CO3 Ratio 15:1 03/17/20 08:25 ABG pH 7.27 (7.35-7.45) L 03/17/20 08:25 ABG pCO2 54.3 mmHg (35-45) H 03/17/20 08:25 ABG pO2 88.4 mmHg (80-100) 03/17/20 08:25 ABG HCO3 24.6 mmol/L (20-24) H 03/17/20 08:25 ABG Total CO2 26.3 mmol/L (23-27) 03/17/20 08:25 ABG O2 Saturation 95.5 % (94-98) 03/17/20 08:25 ABG Base Excess -1.9 mmol/L 03/17/20 08:25 FiO2 3.5L 03/17/20 08:25 Sodium 144.4 mmol/L (137-145) 03/27/20 05:32 Potassium 4.5 mmol/L (3.6-5.0) 03/27/20 05:32 Chloride 110 mmol/L (98-107) H 03/27/20 05:32 Carbon Dioxide 31 mmol/L (22-30) H 03/27/20 05:32 Anion Gap 3 (5-19) L 03/27/20 05:32 BUN 118 mg/dL (7-20) H 03/27/20 05:32 Creatinine 2.76 mg/dL (0.52-1.25) H 03/27/20 05:32 Est GFR ( Amer) 27 (>60) L 03/27/20 05:32 Est GFR (MDRD) Non-Af 22 (>60) L 03/27/20 05:32 Glucose 117 mg/dL (75-110) H 03/27/20 05:32 POC Glucose 133 mg/dL (70-110) H 03/25/20 05:48 Calcium 9.1 mg/dL (8.4-10.2) 03/27/20 05:32 Phosphorus 5.8 mg/dL (2.5-4.5) H 03/17/20 05:30 Magnesium 2.5 mg/dL (1.6-2.3) H 03/27/20 05:32 Iron 24.9 ug/dL (49-181) L 03/17/20 05:30 TIBC 243 ug/dL (250-450) L 03/17/20 05:30 % Saturation 10 % 03/17/20 05:30 Transferrin 169.61 mg/dL (206.00-381.00) L 03/17/20 05:30 Ferritin 117.00 ng/mL (17.9-464.0) 03/17/20 05:30 Total Bilirubin 0.4 mg/dL (0.2-1.3) 03/24/20 05:45 Direct Bilirubin 0.0 mg/dL (0.0-0.4) 03/24/20 05:45 Neonat Total Bilirubin Not Reportable 03/24/20 05:45 Neonat Direct Bilirubin Not Reportable 03/24/20 05:45 Neonat Indirect Bili Not Reportable 03/24/20 05:45 AST 30 U/L (17-59) 03/24/20 05:45 ALT 35 U/L (<50) 03/24/20 05:45 Alkaline Phosphatase 51 U/L (38-126) 03/24/20 05:45 Troponin I 0.075 ng/mL 03/13/20 08:39 NT-Pro-B Natriuret Pep 7080 pg/mL (<450) H 03/13/20 08:39 Total Protein 5.5 g/dL (6.3-8.2) L 03/24/20 05:45 Albumin 2.9 g/dL (3.5-5.0) L 03/24/20 05:45 Triglycerides 111 mg/dL (<150) 03/24/20 05:45 Cholesterol 82.66 mg/dL (0-200) 03/24/20 05:45 LDL Cholesterol Direct 31 mg/dL (<100) 03/24/20 05:45 VLDL Cholesterol 22.0 mg/dL (10-31) 03/24/20 05:45 HDL Cholesterol 38 mg/dL (>40) L 03/24/20 05:45 Vitamin B12 734.0 pg/mL (239-931) 03/17/20 05:30 Folate 9.25 ng/mL (>2.76) 03/17/20 05:30 TSH 1.24 uIU/mL (0.47-4.68) 03/13/20 08:39 PTH Intact 430.9 pg/mL (10.0-65.0) H 03/17/20 05:30 Random Cortisol 37.40 ug/dL (None Established) 03/15/20 05:00 Stool Occult Blood NEGATIVE (NEGATIVE) 03/19/20 14:40 COVID-19 Source NASOPHARYNGEAL 03/13/20 10:36 COVID-19 (CHELLE) NOT DETECTED 03/13/20 10:36 Hep Bs Antigen Negative (Negative) 03/16/20 14:20 Hep Bs Antibody, Quant <3.1 mIU/mL (Immunity>9) L 03/16/20 14:20 Hep B Core Total Ab Negative (Negative) 03/16/20 14:20 HCV Quantitation HCV Not Detected IU/mL (.) 03/16/20 14:20 HCV RNA PCR Test Info Comment (.) 03/16/20 14:20 Slides for Path Review PATHOLOGIST REVIEWED 03/20/20 05:00 03/13/20 08:39 Troponin I 0.075 NT-Pro-B Natriuret Pep 7080 H Impressions: Knee X-Ray 03/12/20 23:44 IMPRESSION: Osteopenia with advanced degenerative change. Small loose bodies. copyright 2010 [employer]- All Rights Reserved Knee X-Ray 03/12/20 23:44 IMPRESSION: Osteopenia with advanced degenerative change copyright 2010 [employer]- All Rights Reserved Chest X-Ray 03/13/20 07:54 IMPRESSION: Constellation of findings suggests CHF exacerbation. Infectious etiology is not excluded. Chest X-Ray 03/15/20 00:00 IMPRESSION: 1. Interval placement of a right-sided central line with the tip overlying the right atrium. 2. Cardiomegaly. Mild vascular congestion. Renal Ultrasound 03/17/20 00:00 IMPRESSION: Limited study. No obvious hydronephrosis. Head CT 03/23/20 00:00 IMPRESSION: 1. No evidence of intracranial hemorrhage. 2. Small focal area of hypoattenuation involving the left frontal centrum semiovale compatible with lacunar infarct, age indeterminate even lack of priors. Additional nonspecific white matter changes, likely sequelae of microangiopathic disease. EVIDENCE OF ACUTE STROKE: Age-indeterminate lacunar left frontal lobe. Findings discussed with Dr. Duffy 1645 hours on 03/23/2020. Head MRI 03/23/20 00:00 IMPRESSION: Area of hyperacute/acute stroke in the left posterior frontal and superior temporal region. Diffuse global volume loss with extensive white matter changes suggesting small vessel ischemic disease. Plan Health Concerns: Acute on chronic kidney failure. Required temporary dialysis. Stable at this point and will follow up with nephrology as an outpatient. Significant aphasia and dysphagia. Aphasia slowly improving. Currently on nectar thick pured diet. Will require ongoing PT, OT and speech. Plan of Treatment: Transfer to [facility] facility Goals: Maximize recovery from acute ischemic stroke Time Spent: Greater than 30 Minutes Stroke Is this a Stroke Patient?: Yes Stroke Pt being discharged on Anti-thrombolytic therapy?: Yes Stroke Pt being discharged on Anti-coagulation therapy?: No Reason(s) for not prescribing Anti-coagulation therapy:: Not indicated Stroke Pt being discharged on Statins?: Yes Acute Heart Failure - Is this a Heart Failure Patient?: No
[2020-03-27 12:23] VITALS: BP 111/58
== END 2020-03-27 14:58 | DRG 189 ==
LOC: ER 23:04 → EH 03-13 12:03 → 3N 03-13 14:27 → 3W 03-15 06:12
PROVIDERS: ADMIT Hospitalist; ATTEND Hospitalist
PROC: 5A09557 Assistance with Respiratory Ventilation, Greater than 96 Consecutive Hours, Continuous Positive Airway Pressure (ICD-10-PCS; principal; 2020-03-13)
PROC: 02HV33Z Insertion of Infusion Device into Superior Vena Cava, Percutaneous Approach (ICD-10-PCS; 2020-03-15)
PROC: B548ZZA Ultrasonography of Superior Vena Cava, Guidance (ICD-10-PCS; 2020-03-15)
PROC: 06HM33Z Insertion of Infusion Device into Right Femoral Vein, Percutaneous Approach (ICD-10-PCS; 2020-03-16)
PROC: B54BZZA Ultrasonography of Right Lower Extremity Veins, Guidance (ICD-10-PCS; 2020-03-16)
PROC: 5A1D70Z Performance of Urinary Filtration, Intermittent, Less than 6 Hours Per Day (ICD-10-PCS; 2020-03-16)
DX: J96.21 Acute and chronic respiratory failure with hypoxia (principal); I50.33 Acute on chronic diastolic (congestive) heart failure; I63.512 Cerebral infarction due to unspecified occlusion or stenosis of left middle cerebral artery; R47.01 Aphasia; N17.9 Acute kidney failure, unspecified; I48.11 Longstanding persistent atrial fibrillation; I13.0 Hypertensive heart and chronic kidney disease with heart failure and stage 1 through stage 4 chronic kidney disease, or unspecified chronic kidney disease; Z68.42 Body mass index [BMI] 45.0-49.9, adult; M62.82 Rhabdomyolysis; N18.4 Chronic kidney disease, stage 4 (severe); N25.81 Secondary hyperparathyroidism of renal origin; Z20.828 Contact with and (suspected) exposure to other viral communicable diseases; R13.10 Dysphagia, unspecified; E87.5 Hyperkalemia; J96.22 Acute and chronic respiratory failure with hypercapnia; D63.1 Anemia in chronic kidney disease; M17.0 Bilateral primary osteoarthritis of knee; W19.XXXA Unspecified fall, initial encounter; E66.01 Morbid (severe) obesity due to excess calories; I25.10 Atherosclerotic heart disease of native coronary artery without angina pectoris; I27.20 Pulmonary hypertension, unspecified; I95.9 Hypotension, unspecified; I16.0 Hypertensive urgency; E55.9 Vitamin D deficiency, unspecified; Z66 Do not resuscitate; E86.1 Hypovolemia; R29.810 Facial weakness; I73.9 Peripheral vascular disease, unspecified; I25.2 Old myocardial infarction; Y92.009 Unspecified place in unspecified non-institutional (private) residence as the place of occurrence of the external cause; Z79.02 Long term (current) use of antithrombotics/antiplatelets; Z79.82 Long term (current) use of aspirin; Z79.899 Other long term (current) drug therapy; Z86.010 Personal history of colon polyps; Z95.1 Presence of aortocoronary bypass graft; Z95.5 Presence of coronary angioplasty implant and graft; Z88.2 Allergy status to sulfonamides; Z99.2 Dependence on renal dialysis
CPT/HCPCS: 36415; 70450; 70551; 71045; 76770; 80048; 80053; 80061; 82272; 82533; 82607; 82728; 82746; 82803; 82962; 83540; 83550; 83735; 83880; 83970; 84100; 84443; 84466; 84484; 85025; 85027; 85045; 85610; 85730; 86317; 86704; 87070; 87340; 87522; 87635; 93005; 93010; 93306; 94660; 96374; 99284; C9803; J0360; J0610; J1265; J1439; J1642; J1644; J1720; J1815; J1940; J3490; J7030; J7050; Q5105

== ENCOUNTER 2020-05-28 12:15 | Emergency (ER) | payer MEDICARE, BC ==
[~2020-05-28 12:15] MED LIST: ROCURONIUM BROMIDE INJ 50 MG/5 ML VIAL IV ONE
[2020-05-28] MEDS ORDERED: NOREPINEPHRINE BITARTRATE INJ/PF 4 MG/4 ML SDV IV ONE ×2 (12:28→15:26)
[2020-05-28] MEDS ORDERED: VANCOMYCIN HCL INJ 1000 MG VIAL IV ONE (12:29)
[2020-05-28] MEDS ORDERED: CEFEPIME 2 GM/D5W RTU 2 GM/50 ML RTUPB IV ONE (12:29)
[2020-05-28] MEDS: DEXTROSE 5%-WATER 250 ML with NOREPINEPHRINE BITARTRATE 4 MG IV PRN ×4 (12:31→15:28)
[2020-05-28] MEDS ORDERED: NORMAL SALINE 1000 ML 1,000 ML IV ONE ×2 (12:33→13:48)
--- NOTE | 2020-05-28 12:34 | ER Document Report ---
ED General - General Chief Complaint: Altered Mental Status Stated Complaint: ALTERED MENTAL STATUS Primary Care Provider: MACHELLE LORENZ MD [Primary Care Provider] - Follow up as needed Notes: Patient presents with altered mental status bradycardia unobtainable blood pressure and possible aspiration from facility Minimal other information available med list not available patient is a 22-gauge IV in the back of his hand but they cannot feel a pulse peripherally. He is awake and moaning He cannot give a history. TRAVEL OUTSIDE OF THE [place] IN LAST 30 DAYS: No - Related Data Allergies/Adverse Reactions: Sulfa (Sulfonamide Antibiotics) Allergy (Verified 03/13/20 10:42) Past Medical History - General Information source: Emergency Med Personnel Cannot obtain history due to: Unstable vital signs - Social History Smoking Status: Unknown if Ever Smoked Family History: Reviewed & Not Pertinent - Past Medical History Cardiac Medical History: Reports: Hx Congestive Heart Failure, Hx Coronary Artery Disease, Hx Heart Attack, Hx Hypercholesterolemia, Hx Hypertension, Hx Peripheral Vascular Disease Renal/ Medical History: Reports: Hx End Stage Renal Disease - Stage III kidney disease GI Medical History: Reports: Hx Colonoscopy Musculoskeletal Medical History: Reports Hx Arthritis, Reports Hx Gout Psychiatric Medical History: Denies: Hx Depression Past Surgical History: Reports: Hx Appendectomy, Hx Cardiac Surgery - 2 stents, Hx Coronary Artery Bypass Graft, Hx Coronary Stent - x2 in 2009, Other - Colon polypectomy - Immunizations Hx Diphtheria, Pertussis, Tetanus Vaccination: Yes Review of Systems - Review of Systems Notes: REVIEW OF SYSTEMS Dementia also Mrs. PHYSICAL EXAMINATION General: No acute distress, well-nourished Head: Atraumatic, normocephalic ENT: Food and mouth gurgling breath sounds Eyes: Conjunctiva normal, pupils equal, lids normal Neck: No JVD, supple, no guarding CVS: Full faint peripheral pulses bradycardic Resp: Breath sounds GI: Obese Ext: No deformities, no edema, normal range of motion in upper and lower ext Back: No CVA or midline TTP Skin: No rash, warm Lymphatic: No lymphadeopathy noted Neuro: Responding moaning nonverbal. Course - Re-evaluation Re-evalutation: 05/28/20 14:31 Patient arrives with multiple systemic critical illness including hypoxic respiratory failure bradycardic shock hypothermia Constellation of findings could be very broad including cardiogenic shock primary bradycardia beta-hugh overdose A. fib with conduction disease, myxedema coma sepsis or any number of other conditions IO access obtained given fluids. Remained bradycardic. Significant of time elapsed until he can get a good EKG because the patient was moving around but it was reticent to intubate initially given his hypotension. He was placed on Levophed after fluids pressure was pumped up. We obtained laboratory testing. Initial EKG strips were showing bradycardia to the 30s and 40s. I attempted to transcutaneously pace him for a time and was unable to get capture given his terrible habitus including with repositioning of the pads AP. Elected to intubate both for airway protection stabilization and paralysis to get a good EKG because I wanted to know if he had a heart block or bradycardic A. fib or a STEMI which would need to be transferred I did consult with ICU Dr. Mccormick who came to the ED I did consult with Dr. Nicolas Coleman cardiology who came to the ED I then elected to place a transvenous pacemaker. This was placed with good capture and the patient improved Still likely acidotic so was given bicarb additional fluids and the vent settings were tweaked by the ICU doctor Chest x-ray confirms pacer placement lack of pneumothorax [facility] was called at 2:00. Discussed with Dr. Portillo who made the patient a "cardiac 1" which will take him straight to the [facility]. Helicopter grounded truck on route Added vasopressin for shock. Pressure has come up to the 107 range as of 2:35 PM, and the patient is getting slightly agitated will give further mean. Inappropriate for propofol. - Laboratory Result Diagrams: 05/28/20 14:00 05/28/20 12:23 Laboratory results interpreted by me: 05/28/20 05/28/20 05/28/20 12:19 12:23 12:23 RBC Hgb Hct RDW Plt Count ABG pH ABG pO2 ABG HCO3 ABG Total CO2 VBG pH Sodium 145.1 H Carbon Dioxide 35 H BUN 63 H Creatinine 3.27 H Est GFR ( Amer) 22 L Est GFR (MDRD) Non-Af 18 L POC Glucose 116 H Calcium 11.7 H Total Protein 5.6 L Albumin 2.9 L TSH 8.51 H 05/28/20 05/28/20 05/28/20 14:00 14:25 14:50 RBC 2.89 L Hgb 8.4 L Hct 25.9 L RDW 18.3 H Plt Count 105 L ABG pH 7.53 H ABG pO2 66.5 L ABG HCO3 32.4 H ABG Total CO2 33.7 H VBG pH 7.51 H Sodium Carbon Dioxide BUN Creatinine Est GFR ( Amer) Est GFR (MDRD) Non-Af POC Glucose Calcium Total Protein Albumin TSH - Diagnostic Test Radiology reviewed: Image reviewed, Reports reviewed - EKG Interpretation by Me Rate: Bradycardia Rhythm: A.Fib When compared to previous EKG there are: Previous EKG unavailable Procedures - Central Line Right Internal jugular Time completed: 14:00 Consent obtained: No - Emergent implied Central line pre-insertion: Sterile PPE donned, Chloraprep applied, Sterile drapes applied Central line size (Fr.): 6 - Percutaneous sheath introducer for transvenous pacemaker Central line lumen type: Cordis/Introducer Ultrasound guided: Yes Line secured with sutures: Yes Central line post-insertion: Blood return from lumens, Sutured, Sterile dressing applied, Position confirmed w/ CXR Number of attempts: 1 Complications: No - Intubation Orotracheal Airway evaluation: Large tongue, Neck immobility, Obese, Poss. upper airway obst. Mallampati Classification: Class 3 Medications: Ketamine, Other - masoud Intubation method: Orotracheal Blade type: Merissa Blade size: 4 - [place] scope not hyper angulated Equipment used: Glidescope ETT size: 8.0 ETT secured at: Teeth ETT secured at (cm): 24 Breath Sounds after Intubation: Equal End tidal CO2 confirmed: Yes Ventilator settings: CMV - Additional Procedures External pacing Additional Procedures: IV insertion - Right groin femoral stick for blood. 18- gauge needle 30 cc syringe. Pressure held afterward. Successful., IO insertion - Right humerus prepped with Betadine inserted flushed no issues, Other - Transvenous pacing. Set at rate of 73 A good ventricular capture. Critical Care Note - Critical Care Note Total time excluding time spent on procedures (mins): 74 Comments: The above patient is critically ill. Not including procedures, but including direct re-evaluations, speaking with patient and/or consultants, interpreting results, and documenting, I spent the total amount of minute listed listed above on critical care time Discharge - Discharge Clinical Impression: Bradycardia CHF (congestive heart failure) Qualifiers: Heart failure type: systolic Heart failure chronicity: acute on chronic Qualified Code(s): I50.23 - Acute on chronic systolic (congestive) heart failure Condition: Critical Disposition: [facility] Referrals: MACHELLE LORENZ MD [Primary Care Provider] - Follow up as needed
[2020-05-28] MEDS ORDERED: KETAMINE HCL INJ 500 MG/10 ML VIAL IV ONE ×3 (12:35→14:34)
[2020-05-28] MEDS ORDERED: ROCURONIUM BROMIDE INJ 50 MG/5 ML VIAL IV ONE (12:35)
[2020-05-28] MEDS ORDERED: ONDANSETRON HCL INJ/PF 4 MG/2 ML SDV ONE (12:49)
[2020-05-28] MEDS ORDERED: CALCIUM GLUCONATE 1000 MG/10 ML INJ IV ONE ×2 (12:49→15:41)
[2020-05-28] MEDS ORDERED: GLUCAGON,HUMAN RECOMB 1 MG INJ ONE (12:50)
[2020-05-28 13:01] LABS: ALBUMIN 2.9 g/dL (3.5-5.0); ALKALINE PHOSPHATASE 96 U/L (38-126); ANION GAP 8 (5-19); ASPARTATE AMINO TRANSFERASE 39 U/L (17-59); BILIRUBIN,DIRECT 0.4 mg/dL (0.0-0.4); BILIRUBIN,TOTAL 0.5 mg/dL (0.2-1.3); BLOOD UREA NITROGEN 63 mg/dL (7-20); CALCIUM 11.7 mg/dL (8.4-10.2); CARBON DIOXIDE 35 mmol/L (22-30); CHLORIDE 102 mmol/L (98-107); GLUCOSE 106 mg/dL (75-110); POTASSIUM 4.9 mmol/L (3.6-5.0); TOTAL PROTEIN 5.6 g/dL (6.3-8.2)
--- NOTE | 2020-05-28 13:04 | RADIOLOGY REPORT (SQ) ---
EXAM DESCRIPTION: CHEST SINGLE VIEW IMAGES COMPLETED DATE/TIME: 05/28/2020 12:53 pm REASON FOR STUDY: CP COMPARISON: 03/15/2020 EXAM PARAMETERS: NUMBER OF VIEWS: One view. TECHNIQUE: Single frontal radiographic view of the chest acquired. RADIATION DOSE: NA LIMITATIONS: None. FINDINGS: LUNGS AND PLEURA: Mild bilateral pulmonary edema. MEDIASTINUM AND HILAR STRUCTURES: No masses. Contour normal. HEART AND VASCULAR STRUCTURES: Heart size is borderline. BONES: No acute findings. HARDWARE: None in the chest. OTHER: No other significant finding. IMPRESSION: Borderline cardiomegaly with mild pulmonary edema. TECHNICAL DOCUMENTATION: JOB ID: [id number] 2010 [employer]- All Rights Reserved Reading location - IP/workstation name: [email or web address]
[2020-05-28] MEDS ORDERED: SODIUM BICARBONATE 8.4% INJ 50 MEQ/50 ML DISP.SYRIN ONE (13:46)
[2020-05-28] MEDS ORDERED: HYDROCORTISONE SOD SUCCINATE INJ/PF 100 MG/2 ML SDV IV ONE (13:48)
[2020-05-28] MEDS ORDERED: VASOPRESSIN INJ 20 UNIT/1 ML VIAL ONE (13:48)
[2020-05-28] MEDS ORDERED: ASPIRIN 300 MG SUPP, RECTAL PR ONE (13:51)
[2020-05-28 14:26] LABS: ABSOLUTE LYMPHOCYTES (AUTO) 0.7 10^3/uL (0.5-4.7); ABSOLUTE MONOCYTES (AUTO) 0.4 10^3/uL (0.1-1.4); ABSOLUTE NEUT (AUTO) 3.2 10^3/uL (1.7-8.2); BASOPHILS % (AUTO) 0.1 % (0-2); HEMATOCRIT 25.9 % (37.9-51.0); HEMOGLOBIN 8.4 g/dL (13.5-17.0); LYMPHOCYTES % (AUTO) 16.5 % (13-45); MEAN CORPUSCULAR HEMOGLOBIN 29.2 pg (27.0-33.4); MEAN CORPUSCULAR HGB CONC 32.5 g/dL (32.0-36.0); MEAN CORPUSCULAR VOLUME 90 fl (80-97); PLATELET COUNT 105 10^3/uL (150-450); RED BLOOD COUNT 2.89 10^6/uL (4.35-5.55); RED CELL DISTRIBUTION WIDTH 18.3 % (11.5-14.0); SEGMENTED NEUTROPHILS % (AUTO) 72.4 % (42-78); TOTAL CELLS COUNTED % (AUTO) 100 %; WHITE BLOOD COUNT 4.4 10^3/uL (4.0-10.5)
--- NOTE | 2020-05-28 14:31 | RADIOLOGY REPORT (SQ) ---
EXAM DESCRIPTION: CHEST SINGLE VIEW IMAGES COMPLETED DATE/TIME: 05/28/2020 2:19 pm REASON FOR STUDY: CVC plcemt COMPARISON: Earlier the same day. EXAM PARAMETERS: NUMBER OF VIEWS: One view. TECHNIQUE: Single frontal radiographic view of the chest acquired. RADIATION DOSE: NA LIMITATIONS: None. FINDINGS: LUNGS AND PLEURA: Endotracheal tube is been placed. Tip lies approximately 3 cm above the [place]. There is persistent basilar airspace disease. A right-sided central line in place. Tip ov erlies the inferior right atrium. No pneumothorax. MEDIASTINUM AND HILAR STRUCTURES: No masses. Contour normal. HEART AND VASCULAR STRUCTURES: Unchanged. BONES: No acute findings. HARDWARE: None in the chest. OTHER: No other significant finding. IMPRESSION: 1. Endotracheal tubes in satisfactory position. 2. Central line overlies the lower right atrium. TECHNICAL DOCUMENTATION: JOB ID: [id number] 2010 [employer]- All Rights Reserved Reading location - IP/workstation name: [email or web address]
[2020-05-28 14:33] LABS: INTERNATIONAL RATION (INR) 1.04; PROTHROMBIN TIME 13.9 SEC (11.4-15.4)
[2020-05-28 14:45] LABS: ARTERIAL BLOOD HCO3 32.4 mmol/L (20-24); ARTERIAL BLOOD PCO2 39.9 mmHg (35-45); ARTERIAL BLOOD PH 7.53 (7.35-7.45); ARTERIAL BLOOD PO2 66.5 mmHg (80-100); ARTERIAL BLOOD TOTAL CO2 33.7 mmol/L (23-27)
[2020-05-28 14:46] LABS: ARTERIAL BLOOD FIO2 40%
[2020-05-28 15:03] LABS: VENOUS BLOOD BASE EXCESS 7.4 mmol/L; VENOUS BLOOD HCO3 31.2 mmol/L (20-32); VENOUS BLOOD PCO2 40.4 mmHg (35-63); VENOUS BLOOD PH 7.51 (7.30-7.42)
--- NOTE | 2020-05-28 15:11 | EKG REPORT ---
SEVERITY:- ABNORMAL ECG - Excessive baseline artefact Junctional rhythm LEFT BUNDLE BRANCH BLOCK : Confirmed by: Sandip Rivera MD 28-May-2020 15:11:12
--- NOTE | 2020-05-28 15:11 | EKG REPORT ---
SEVERITY:- ABNORMAL ECG - JUNCTIONAL ESCAPE RHYTHM LEFT BUNDLE BRANCH BLOCK : Confirmed by: Sandip Rivera MD 28-May-2020 15:10:15
--- NOTE | 2020-05-28 15:13 | EKG REPORT ---
SEVERITY:- ABNORMAL ECG - Excessive artefact Probable junctional rhythm LEFT BUNDLE BRANCH BLOCK : Confirmed by: Sandip Rivera MD 28-May-2020 15:12:02
[2020-05-28] MEDS ORDERED: MIDAZOLAM 2 MG/2 ML INJ IV ONE (15:26)
[2020-05-28] MEDS ORDERED: FENTANYL CITRATE INJ/PF 100 MCG/2 ML AMPUL IV ONE (15:26)
[2020-05-28] MEDS ORDERED: PROPOFOL 1,000 MG/100 ML INFUS..BTL IV PRN (15:39)
[2020-05-28] MEDS ORDERED: GLUCAGON,HUMAN RECOMB 1 MG INJ IV ONE (15:41)
[2020-05-28 16:18] VITALS: BP 76/54
[2020-05-28] MEDS ORDERED: DEXTROSE 5%-WATER 250 ML with VASOPRESSIN 100 UNIT IV PRN ×2 (17:30)
== END 2020-05-28 16:28 | disposition short-term general hospital (02) ==
LOC: ER 12:15
DX: R00.1 Bradycardia, unspecified (principal); I50.23 Acute on chronic systolic (congestive) heart failure; R41.82 Altered mental status, unspecified; I25.10 Atherosclerotic heart disease of native coronary artery without angina pectoris; E78.00 Pure hypercholesterolemia, unspecified; I25.2 Old myocardial infarction
CPT/HCPCS: 93005; 96376; 99291; 96375; 96365; 96366; 96368; 36415; 87040; 82962; 82803 ×2; 83605; 84478; 84443; 85025; 85610; 80053; 84484; 71045; 94660; 93010; 36600; 31500; 36556; J2250; A9270; J0610; J3490 ×5; J3010; J2704; J1610; J1720; J2405; J7060; J7030; J3370; J0692